=== PATIENT | male | born 1960 | race African-American/Black ===

== ENCOUNTER 2020-12-01 05:03 | Inpatient (IN) | payer MEDICARE, OTHER ==
[~2020-12-01] VITALS: Ht 170.2 cm; Wt 66.7 kg
[2020-12-01] MEDS ORDERED: CRANBERRY300 MG PO (05:10)
[2020-12-01] MEDS ORDERED: FERROUS SULFAT325 MG ORAL (05:10)
[2020-12-01] MEDS ORDERED: DOCUSATE SODIU250 MG ORAL (05:10)
[2020-12-01] MEDS ORDERED: PANTOPRAZOLE SO40 MG ORAL (05:14)
[2020-12-01] MEDS ORDERED: COMBIVENT RESPIM4 GM IH (05:14)
[2020-12-01] MEDS ORDERED: MULTI VITAMIN1 EACH ORAL (05:14)
[2020-12-01] MEDS ORDERED: METOPROLOL TART25 MG ORAL (05:14)
[2020-12-01] MEDS ORDERED: FOLIC ACID1 MG ORAL (05:14)
[2020-12-01] MEDS ORDERED: FLUTICASONE PRO16 G1 NASAL (05:14)
[2020-12-01] MEDS ORDERED: ENEMA133 M1 RC (05:14)
[2020-12-01] MEDS ORDERED: HYDROCODON-ACE1 EA18 PO (05:14)
--- NOTE | 2020-12-01 05:22 | Emergency Room Report ---
History of Present Illness General Chief Complaint: Dyspnea/Respdistress Source: Patient Present Illness HPI This is a 60-year-old male with history of pneumonia and CHF. He presents with chief complaint of shortness of breath. He is coming from a senior living. He was smoking a cigarette and developed shortness of breath. Per political geographer, oxygenation was 88% on room air. Patient complained of shortness of breath. No fever chills but he did not on oxygen at the senior living. He is mostly bedbound because of chronic pain and neuropathy to his lower extremity. He denies any fever chills. No nausea no vomiting. Pain is mostly to his back and lower extremity. He said is from nerve damage. He did not get any breathing treatment. No history of COPD. He recently was transferred to [place] at the beginning of the month after admission through [facility]. 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 COVID-19 Screening: Negative COVID-19 COVID-19 Testing Source: [place] Patient History Past Medical History: see triage record, old chart reviewed, CHF Past Surgical History: other Pertinent Family History: none Social History: Reports: smoking, alcohol use Immunizations: other Reviewed Nursing Documentation: PMH: Agreed; PSxH: Agreed Nursing Documentation-PMH Hx Hypertension: Yes Hx COPD: Yes - PNA Review of Systems Eye: Denies: eye pain, blurred vision ENT: Denies: ear pain, nose congestion, throat swelling Respiratory: Reports: shortness of breath; Denies: cough Cardiovascular: Denies: chest pain, palpitations Gastrointestinal: Denies: abdominal pain, diarrhea, nausea, vomiting Musculoskeletal: Reports: back pain; Denies: joint pain Skin: Denies: rash Neurological: Denies: headache, numbness Endocrine: Denies: increased thirst, increased urine Hematologic/Lymphatic: Denies: easy bruising All Other Systems: negative except mentioned in HPI Physical Exam Vital Signs Date Time Temp Pulse Resp B/P (MAP) Pulse Ox O2 Delivery O2 Flow Rate FiO2 12/01/20 04:58 99.0 91 20 111/74 (86) 100 Nasal Cannula 3.0 Vitals unremarkable Sp02 EP Interpretation: reviewed, normal General Appearance: well appearing, no apparent distress, alert Head: normocephalic, atraumatic Eyes: bilateral eye PERRL, bilateral eye EOMI ENT: hearing grossly normal, normal pharynx Neck: full range of motion, supple, no meningismus Respiratory: chest non-tender, decreased breath sounds Cardiovascular #1: regular rate, rhythm, no murmur Gastrointestinal: normal bowel sounds, non tender, no mass, no organomegaly, no bruit, non-distended Musculoskeletal: back normal, normal range of motion, other - Trace edema Neurologic: alert, oriented x3 Psychiatric: mood/affect normal Medical Decision Making Diagnostic Impression: Primary Impression: Acute respiratory failure with hypoxia Additional Impressions: CHF exacerbation Qualified Codes: I50.9 - Heart failure, unspecified Anemia Qualified Codes: D64.9 - Anemia, unspecified Chronic pain Qualified Codes: G89.4 - Chronic pain syndrome HCAP (healthcare-associated pneumonia) ER Course Patient presents with acute respiratory failure with hypoxia. Oxygenation is on percent on 2 L. I suspect that he has component of CHF. He had negative Covid testing recently. Repeat Covid testing sent. Patient will be admitted to the hospital for further work-up. EKG Diagnostic Results Troponin ordered: Yes Rate: normal Rhythm: NSR ST Segments: no acute changes Rhythm Strip Diag. Results EP Interpretation: yes Rate: 91 Rhythm: NSR, no PVC's, no ectopy Chest X-Ray Diagnostic Results Chest X-Ray Diagnostic Results : Chest X-Ray Ordered: Yes # of Views/Limited/Complete: 1 View Indication: Shortness of Breath EP Interpretation: Yes Interpretation: no effusion, no pneumothorax, other - Cardiomegaly with vascular congestion. Cannot rule out infiltrate Impression: Other - CM with vasc congestion Electronically Signed by: Nicholas Hurd MD Last Vital Signs Date Time Temp Pulse Resp B/P (MAP) Pulse Ox O2 Delivery O2 Flow Rate FiO2 12/01/20 04:58 99.0 91 20 111/74 (86) 100 Nasal Cannula 3.0 Status: improved Disposition: ADMITTED INPATIENT Condition: Serious Nicholas Hurd MD Dec 01, 2020 05:22
[2020-12-01 05:29] LABS: BASOPHILS % (AUTO) 1.5 % (0.0-2.0); EOSINOPHILS % (AUTO) 2.2 % (0.0-3.0); HEMATOCRIT 29.2 % (42.0-52.0); HEMOGLOBIN 8.3 G/DL (14.2-18.0); LYMPHOCYTES % (AUTO) 14.8 % (20.0-45.0); MEAN CORPUSCULAR VOLUME 99 FL (80-99); MONOCYTES % (AUTO) 15.3 % (1.0-10.0); NEUTROPHILS % (AUTO) 66.2 % (45.0-75.0); PLATELET COUNT 252 K/UL (150-450); RED BLOOD COUNT 2.96 M/UL (4.70-6.10); RED CELL DISTRIBUTION WIDTH 21.9 % (11.6-14.8); WHITE BLOOD COUNT 8.7 K/UL (4.8-10.8)
[2020-12-01] MEDS ORDERED: Albuterol ud Inhalation HHN ONE (05:30)
[2020-12-01] MEDS ORDERED: Solu-MEDROL 125mg Inj IVP ONE (05:30)
[2020-12-01] MEDS ORDERED: Ipratropium 0.02% Inh Soln 2.5ml UD HHN ONE (05:30)
[2020-12-01] MEDS ORDERED: Morphine Sulfate 4mg/ml Inj (IV USE ONLY) IVP ONE ×2 (05:30→07:00)
[2020-12-01 05:52] LABS: ALBUMIN 2.6 G/DL (3.4-5.0); ALBUMIN/GLOBULIN RATIO 0.7 (1.0-2.7); ALKALINE PHOSPHATASE 98 U/L (46-116); BILIRUBIN,TOTAL 0.4 MG/DL (0.2-1.0); BLOOD UREA NITROGEN 18 mg/dL (7-18); CALCIUM 8.7 MG/DL (8.5-10.1); CARBON DIOXIDE 27 MMOL/L (21-32); CREATININE 0.6 MG/DL (0.55-1.30)
[2020-12-01 06:00] VITALS: BP 122/66
[2020-12-01 06:02] LABS: ALANINE AMINOTRANSFERASE 12 U/L (12-78); ASPARTATE AMINO TRANSFERASE 11 U/L (15-37); CHLORIDE 108 MMOL/L (98-107); POTASSIUM 4.5 MMOL/L (3.5-5.1); SODIUM 140 MMOL/L (136-145)
--- NOTE | 2020-12-01 07:56 | Diagnostic Imaging Report ---
EXAM: XR Chest, 1 View CLINICAL HISTORY: SOB TECHNIQUE: Frontal view of the chest. COMPARISON: No relevant prior studies available. FINDINGS: Lungs: There are moderate bilateral perihilar and lower lobe mixed interstitial and alveolar infiltrates most likely representing pulmonary edema. Pneumonitis not completely excluded.. Pleural space: Unremarkable. No pneumothorax. Heart: The heart size is mildly enlarged. Mediastinum: Unremarkable. Bones/joints: Unremarkable. IMPRESSION: There are moderate bilateral perihilar and lower lobe mixed interstitial and alveolar infiltrates most likely representing pulmonary edema. Pneumonitis not completely excluded.
[2020-12-01 08:00] VITALS: BP 132/82
[2020-12-01 09:22] LABS: FERRITIN 27 NG/ML (8-388)
[2020-12-01 09:36] LABS: % IRON SATURATION 8 % (15-50); IRON 18 ug/dL (50-175); TOTAL IRON BINDING CAPACITY 234 ug/dL (250-450)
[2020-12-01 10:06] LABS: APPEARANCE,URINE CLEAR; BILIRUBIN, URINE NEGATIVE (NEGATIVE); COLOR,URINE PALE YELLOW; GLUCOSE, URINE (UA) NEGATIVE (NEGATIVE); KETONES,URINE NEGATIVE (NEGATIVE); LEUKOCYTE ESTERASE ,URINE NEGATIVE (NEGATIVE); NITRITE,URINE NEGATIVE (NEGATIVE); PH,URINE 5 (4.5-8.0); PROTEIN,URINE NEGATIVE (NEGATIVE); UROBILINOGEN,URINE NORMAL MG/DL (0.0-1.0)
--- NOTE | 2020-12-01 10:49 | Consultation ---
Consult Note Consult Note DATE OF CONSULTATION: 12/01/2020 CONSULTING PHYSICIAN: Rehan Carlton MD. ATTENDING PHYSICIAN: Dr. Pal REASON FOR CONSULTATION: Hypoxemic respiratory distress HISTORY OF PRESENT ILLNESS: Mr. Bishop is a 60-year-old male with past medical history of hypertension, pneumonia and CHF, who was sent to ED from [facility] for evaluation of shortness of breath. Apparently patient was reported to be smoking a cigarette when he developed shortness of breath. Patient was hypoxic in the 80s on room air and was placed on supplemental oxygen. He denies fever, chills, diarrhea, or sick contact. Patient denies being on oxygen at the care home. Patient is mostly bedbound due to chronic pain and neuropathy to his lower extremities. Patient denies history of COPD. Patient tested negative for COVID-19 on 11/26/2020 at his facility. A new COVID- 19 swab has been sent and is pending result. EKG showed normal sinus rhythm without acute changes. Chest x-ray was notable for cardiomegaly with vascular congestion. Patient was given breathing treatment, steroid, Lasix, and pain medication and was admitted to the hospital for further management. PAST MEDICAL HISTORY: Hypertension, CHF MEDICATIONS: Docusate, ferrous sulfate, fluticasone, folic acid, hydrocodone, ipratropium/albuterol, metoprolol, multivitamin, pantoprazole ALLERGIES: Codeine FAMILY HISTORY: Unknown PERSONAL/SOCIAL HISTORY: Resident of [facility] REVIEW OF SYSTEMS: Unreliable PHYSICAL EXAMINATION: VITAL SIGNS: Blood pressure 122/66, heart rate 93, respiratory rate 20, weight 73 kg, height 172 cm. General: Patient sitting at the edge of bed, NAD, normal work of breathing on room air HEENT: Head exam reveals that the head is normocephalic, atraumatic without deformity or unusual swelling. Pupils are PERRLA. CHEST AND LUNGS: Decreased breath sounds, chest nontender CARDIOVASCULAR: Reveals normal S1, S2 without murmurs, rubs, or clicks. ABDOMEN: Soft with no tenderness or organomegaly. RECTAL: Deferred. MUSCULOSKELETAL: Trace edema in lower extremities NEUROLOGICAL: Alert and oriented x3 , nonfocal LABORATORY DATA: Laboratory testing shows hemoglobin 8.3, hematocrit 29.2. Chemistries show chloride 108, iron 18, BNP 6986, CRP 5.1 Urinalysis normal Toxicology negative Assessment/Plan 1. Anemia -Per primary MD 2. Elevated inflammatory markers -We will add Lovenox for DVT prophylaxis -We will also order duplex ultrasound of legs 3. CHF - Elevated BNP - Cardio following -2D echo -We will add Lasix 4. Pulmonary congestion, likely 2/2 to CHF -Provide supplemental oxygen as needed 5. COVID-19 PUI -COVID-19 swab has been sent -isolation precaution until COVID-19 results is available 6. Hypoxic respiratory distress - Provide supplemental oxygen as needed -We will continue DuoNeb -We will add Solu-Medrol 7. Smoker - Smoking cessation education 8. Infiltrates - Dw ID - We will start him on Rocephin The care for this patient was discussed with my supervising physician. Time spent for this case was approximately 31 minutes. Luis Torres Dec 01, 2020 10:49
[2020-12-01 12:00] VITALS: BP 102/65
--- NOTE | 2020-12-01 12:14 | Consultation ---
DATE OF CONSULTATION: 12/01/2020 INFECTIOUS DISEASES CONSULTATION CONSULTING PHYSICIAN: Marques Davidson MD. REFERRING PHYSICIAN: La Pal MD. This consultation has been done on behalf of Dr. Lucian Espinoza. HISTORY OF PRESENTING ILLNESS: This is a 60-year-old gentleman with history of pneumonia, congestive heart failure, who comes in with shortness of breath. There was a concern for pneumonia and an Infectious Diseases consultation has been obtained for antibiotics. He was tested COVID-19 negative. PAST MEDICAL HISTORY: 1. History of pneumonia. 2. History of congestive heart failure. 3. History of COPD. 4. History of hypertension. SOCIAL HISTORY: He is a smoker. He drinks alcohol. No history of drug use. FAMILY HISTORY: Unknown. REVIEW OF SYSTEMS: RESPIRATORY: No fever or chills. No cough. He has shortness of breath. No chest pain. CARDIAC: No chest pain. No palpitation. No dizziness. No syncope. GASTROINTESTINAL: No nausea. No vomiting. No abdominal pain or diarrhea. MEDICATIONS: As an inpatient, he is on Solu-Medrol, morphine, Atrovent, albuterol. ALLERGIES: To codeine noted. PHYSICAL EXAMINATION: VITAL SIGNS: Temperature of 98.4, T-max of 99, pulse of 93, respiratory rate 20, blood pressure 122/66, O2 saturation of 100% on 2 liters of oxygen. HEENT: Pupils equally reactive to light and accommodation. Mouth appears clean without thrush. NECK: Supple. No adenopathy. No JVD. CARDIOVASCULAR: Regular rate and rhythm. No murmurs. LUNGS: Clear to auscultation bilaterally. No crackles. No wheezes. ABDOMEN: Soft, nontender. No organomegaly. EXTREMITIES: No cyanosis, no clubbing, no edema. LABORATORY DATA: White count of 8.7, hemoglobin 8.3, hematocrit 29.2, MCV 99, platelet count of 252, with neutrophils of 66%. Sodium 140, potassium 4.5, chloride 108, bicarb 27, BUN 18, creatinine 0.6, glucose 91, calcium 8.7. Total bilirubin 0.4. AST 11, ALT 12, alkaline phosphatase 98. Troponin 0.008. C-reactive protein 5.1. Total protein 6.3, albumin 2.6. UA is showing 0 white cells. Chest x-ray is showing moderate bilateral perihilar and lower lobe mixed interstitial and alveolar infiltrates, most likely representing pulmonary edema, may not excluded. ASSESSMENT: This is a 60-year-old gentleman with history of pneumonia, congestive heart failure, hypertension, COPD, who comes in with shortness of breath and was found to have. 1. Pneumonia. His COVID-19 test was negative on 11/26/2020. 2. Congestive heart failure. 3. Hypertension. 4. COPD. PLAN: 1. We will start the patient on ceftriaxone. 2. We will order sputum for Gram stain and culture. 3. We will follow up cultures and adjust antibiotics accordingly. I would like to thank, Dr. Pal for this consultation. Marques Davidson M.D. DR: NAHEED JOB#: [id number] CC: [place] MD.; Fax#: [phone]
[2020-12-01] MEDS ORDERED: Albuterol/Ipratropium 3ml neb HHN SCH (13:00)
[2020-12-01] MEDS ORDERED: Ipratropium 0.02% Inh Soln 2.5ml UD HHN SCH (13:00)
--- NOTE | 2020-12-01 13:04 | Consultation ---
Consult Note Consult Note I am asked to evaluate the patient at the request of Dr. Martell for fluid and electrolyte management This is a 60-year-old male with history of pneumonia and CHF. He presents with chief complaint of shortness of breath. He is coming from a care home. He was smoking a cigarette and developed shortness of breath. Per automation operator, oxygenation was 88% on room air. Patient complained of shortness of breath. No fever chills but he did not on oxygen at the care home. He is mostly bedbound because of chronic pain and neuropathy to his lower extremity. He denies any fever chills. No nausea no vomiting. Pain is mostly to his back and lower extremity. He said is from nerve damage. He did not get any breathing treatment. No history of COPD. He recently was transferred to [place] at the beginning of the month after admission through [facility]. 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 HEENT: Pupils equally reactive to light and accommodation. Mouth appears clean without thrush. NECK: Supple. No adenopathy. No JVD. CARDIOVASCULAR: Regular rate and rhythm. No murmurs. LUNGS: Clear to auscultation bilaterally. No crackles. No wheezes. ABDOMEN: Soft, nontender. No organomegaly. EXTREMITIES: No cyanosis, no clubbing, no edema. LABORATORY DATA: White count of 8.7, hemoglobin 8.3, hematocrit 29.2, MCV 99, platelet count of 252, with neutrophils of 66%. Sodium 140, potassium 4.5, chloride 108, bicarb 27, BUN 18, creatinine 0.6, glucose 91, calcium 8.7. Total bilirubin 0.4. AST 11, ALT 12, alkaline phosphatase 98. Troponin 0.008. C-reactive protein 5.1. Total protein 6.3, albumin 2.6. UA is showing 0 white cells. Chest x-ray is showing moderate bilateral perihilar and lower lobe mixed interstitial and alveolar infiltrates, most likely representing pulmonary edema, may not excluded. Chest x-ray IMPRESSION: There are moderate bilateral perihilar and lower lobe mixed interstitial and alveolar infiltrates most likely representing pulmonary edema. Pneumonitis not completely excluded. . Assessment/Plan Imp: Iron deficiency anemia Respiratory failure Exacerbation of CHF Chronic pain Hypoalbuminemia Plan: IV iron Stool OB Demise cardiac and pulmonary status Per orders Hong Wall MD Dec 01, 2020 13:04
[2020-12-01] MEDS: Solu-MEDROL 40mg Inj IVP SCH ×2 (13:44→17:41)
[2020-12-01] MEDS: cefTRIAXone 1 GM in D5W 55 ML IVPB SCH (13:44)
--- NOTE | 2020-12-01 14:33 | Cardiac Electrophysiology PN ---
Subjective Subjective [id number] Objective Last 24 Hour Vital Signs Date Time Temp Pulse Resp B/P (MAP) Pulse Ox O2 Delivery O2 Flow Rate FiO2 12/01/20 12:00 94 12/01/20 07:57 Nasal Cannula 2.0 12/01/20 07:41 98.4 93 20 122/66 100 Room Air 2.0 28 12/01/20 06:11 98.4 12/01/20 06:11 98.4 12/01/20 06:00 98.4 93 20 122/66 100 Room Air 12/01/20 05:26 88 20 100 Nasal Cannula 2.0 28 86 18 98 12/01/20 05:15 91 20 Nasal Cannula 3.0 12/01/20 04:58 99.0 91 20 111/74 (86) 100 Nasal Cannula 3.0 Laboratory Tests Test 12/01/20 05:14 12/01/20 05:15 12/01/20 09:58 Iron Level 18 ug/dL (50-175) L Total Iron Binding Capacity 234 ug/dL (250-450) L Percent Iron Saturation 8 % (15-50) L Unsaturated Iron Binding 216 ug/dL (112-346) Ferritin 27 NG/ML (8-388) Vitamin B12 Level 402 PG/ML (193-986) Folate 16.9 NG/ML (8.6-58.9) White Blood Count 8.7 K/UL (4.8-10.8) Red Blood Count 2.96 M/UL (4.70-6.10) L Hemoglobin 8.3 G/DL (14.2-18.0) L Hematocrit 29.2 % (42.0-52.0) L Mean Corpuscular Volume 99 FL (80-99) Mean Corpuscular Hemoglobin 27.9 PG (27.0-31.0) Mean Corpuscular Hemoglobin Concent 28.3 G/DL (32.0-36.0) L Red Cell Distribution Width 21.9 % (11.6-14.8) H Platelet Count 252 K/UL (150-450) Mean Platelet Volume 5.7 FL (6.5-10.1) L Neutrophils (%) (Auto) 66.2 % (45.0-75.0) Lymphocytes (%) (Auto) 14.8 % (20.0-45.0) L Monocytes (%) (Auto) 15.3 % (1.0-10.0) H Eosinophils (%) (Auto) 2.2 % (0.0-3.0) Basophils (%) (Auto) 1.5 % (0.0-2.0) D-Dimer 1.12 mg/L FEU (0.00-0.49) H Sodium Level 140 MMOL/L (136-145) Potassium Level 4.5 MMOL/L (3.5-5.1) Chloride Level 108 MMOL/L (98-107) H Carbon Dioxide Level 27 MMOL/L (21-32) Blood Urea Nitrogen 18 mg/dL (7-18) Creatinine 0.6 MG/DL (0.55-1.30) Estimat Glomerular Filtration Rate > 60 mL/min (>60) Glucose Level 91 MG/DL (74-106) Lactic Acid Level 0.50 mmol/L (0.4-2.0) Calcium Level 8.7 MG/DL (8.5-10.1) Total Bilirubin 0.4 MG/DL (0.2-1.0) Aspartate Amino Transf (AST/SGOT) 11 U/L (15-37) L Alanine Aminotransferase (ALT/SGPT) 12 U/L (12-78) Alkaline Phosphatase 98 U/L (46-116) Troponin I 0.008 ng/mL (0.000-0.056) C-Reactive Protein, Quantitative 5.1 mg/dL (0.00-0.90) H Pro-B-Type Natriuretic Peptide 6986 pg/mL (0-125) H Total Protein 6.3 G/DL (6.4-8.2) L Albumin 2.6 G/DL (3.4-5.0) L Globulin 3.7 g/dL Albumin/Globulin Ratio 0.7 (1.0-2.7) L Urine Color Pale yellow Urine Appearance Clear Urine pH 5 (4.5-8.0) Urine Specific [place] 1.010 (1.005-1.035) Urine Protein Negative (NEGATIVE) Urine Glucose (UA) Negative (NEGATIVE) Urine Ketones Negative (NEGATIVE) Urine Blood Negative (NEGATIVE) Urine Nitrite Negative (NEGATIVE) Urine Bilirubin Negative (NEGATIVE) Urine Urobilinogen Normal MG/DL (0.0-1.0) Urine Leukocyte Esterase Negative (NEGATIVE) Urine RBC 0 /HPF (0 - 0) Urine WBC 0 /HPF (0 - 0) Urine Squamous Epithelial Cells Occasional /LPF Urine Bacteria Occasional /HPF (NONE) Urine Opiates Screen Negative (NEGATIVE) Urine Barbiturates Screen Negative (NEGATIVE) Phencyclidine (PCP) Screen Negative (NEGATIVE) Urine Amphetamines Screen Negative (NEGATIVE) Urine Benzodiazepines Screen Negative (NEGATIVE) Urine Cocaine Screen Negative (NEGATIVE) Urine Marijuana (THC) Screen Negative (NEGATIVE) Christian Mendoza MD Dec 01, 2020 14:33
[2020-12-01] MEDS ORDERED: Iron Sucrose 200 MG in NS 110 ML IVPB ONE (15:00)
--- NOTE | 2020-12-01 15:14 | Consultation ---
DATE OF CONSULTATION: 12/01/2020 CARDIOLOGY CONSULTATION REFERRING PHYSICIAN: La Pal M.D. REASON FOR THE CONSULTATION: Congestive heart failure and hypertension. HISTORY OF PRESENT ILLNESS: The patient is a 60-year-old gentleman with history of hypertension, congestive heart failure, pneumonia, who was sent to the emergency room from a assisted facility for increasing shortness of breath. The patient reportedly was smoking cigarette and suddenly developed shortness of breath and was hypoxic at 80% on room air. supplemental oxygen. The patient is mostly bed-bound due to chronic pain as well as lower extremity neuropathy. He tested negative for COVID-19 on November 26, 2020 at his facility and a new COVID swab was sent. His EKG shows sinus rhythm, no acute ST-T wave abnormality. The chest x-ray showed cardiomegaly with vascular congestion. His BNP was almost 7000. Preliminary echocardiogram showed ejection fraction of 65% with severe pulmonary hypertension. REVIEW OF SYSTEMS: Negative other than what was mentioned in history of present illness. PAST MEDICAL HISTORY: As mentioned above. FAMILY HISTORY: Noncontributory. MEDICATION: Per reconciliation. ALLERGIES: Codeine. SOCIAL HISTORY: Resident of a assisted facility and continues to smoke. PHYSICAL EXAMINATION: VITAL SIGNS: Blood pressure of 122/66, pulse is 94, respirations are 18, and temperature 98.4. HEAD AND NECK: No JVD. LUNGS: Clear. CARDIOVASCULAR: Regular S1 and S2 with no gallop or murmur. ABDOMEN: Soft. EXTREMITIES: No pitting edema. LABORATORY DATA: Labs show sodium of 140, potassium 4.5, BUN of 18, creatinine 0.6, and glucose of 91. Troponin is negative. BNP is 6986. His urine toxicology is negative. White count is 8.7, hemoglobin 9.7, hematocrit 29.2, platelet count 252. ASSESSMENT AND PLAN: 1. congestive heart failure. BNP of 7000 in this patient with ejection fraction of 65% by echocardiogram, likely due to diastolic dysfunction as well as pulmonary hypertension. Start the patient on Lasix 40 mg IV b.i.d. 2. COPD and respiratory failure, on Solu-Medrol as well as ceftriaxone. 3. Anemia, etiology is not clear at this time, but could be anemia of chronic disease. 4. Hypertension. Blood pressure currently stable. I will keep the patient only on Lasix at this time. Thank you very much for allowing me to participate in the care of this patient. Please do not hesitate to contact me for any questions regarding my evaluation. Christian Mendoza M.D. DR: MOHAN JOB#: [id number] CC:
[2020-12-01 16:00] VITALS: BP 133/87
--- NOTE | 2020-12-01 19:25 | Cardiology Report ---
APPROVED REPORT EXAM: Two-dimensional and M-mode echocardiogram with Doppler and color Doppler. INDICATION Congestive Heart Failure M-Mode DIMENSIONS IVSd1.1 (0.7-1.1cm)Left Atrium (MM)5.1 (1.6-4.0cm) LVDd5.2 (3.5-5.6cm)Aortic Root3.6 (2.0-3.7cm) PWd1.3 (0.7-1.1cm)Aortic Cusp Exc.1.8 (1.5-2.0cm) IVSs1.5 cmEPSS0.3 (>1.0cm) LVDs3.4 (2.5-4.0cm) PWs2.6 cm <Conclusion> Normal left ventricular chamber size, systolic function and wall motion. Left ventricular ejection fraction estimated to be 65 %. Borderline left ventricular hypertrophy by 2-D. Anterior Echo-free space, may be due to pericardial fat or effusion. Mild bi-atrial enlargement. Right ventricular chamber size is within normal limits. Focal aortic valve sclerosis with adequate cusp excursion. Moderate thickened mitral valve leaflets with normal excursion. Mitral annulus and aortic root calcification. Normal pulmonic valve structure. Normal tricuspid valve structure. IVC dilated at 2.2 cm with slight physiologic collapse suggestive of increased RA pressure. A color flow and spectral Doppler study was performed and revealed: Trace aortic regurgitation. Mild mitral regurgitation. Mitral diastolic velocities suggest reduced left ventricular relaxation c/w mild LV diastolic dysfunction (Grade I ). Moderate tricuspid regurgitation. Tricuspid systolic velocities suggests peak right ventricular systolic pressure of 65 mmHg, consistent with severe pulmonary hypertension. Possible trace pulmonic regurgitation present.
[2020-12-01 20:00] VITALS: BP 131/79
--- NOTE | 2020-12-01 21:29 | History and Physical Report ---
DATE OF ADMISSION: 12/01/2020 HISTORY OF PRESENT ILLNESS: The patient is here from a detention and is admitted for shortness of breath, rule out CHF exacerbation, hypoxia. Chest x-ray showed vascular congestion. The patient is a poor historian. The patient got steroids and advised on antibiotics in the emergency room. He is admitted for CHF exacerbation, hypoxia, rule out pneumonia. Again, he is a poor historian, cannot get a reliable history from the patient. PAST MEDICAL HISTORY: Constipation, iron-deficiency anemia, hypertension, GERD, CHF. ALLERGIES: Codeine. PAST HISTORY: Iron-deficiency anemia. Also has a history of COPD and hypertension. MEDICATIONS: Docusate, , ferrous sulfate, metoprolol, multivitamin, and Protonix. FAMILY HISTORY: Noncontributory. SOCIAL HISTORY: Has history of smoking. Denies history of drug abuse. Denies history of alcohol abuse. Patient does have history of alcohol abuse. Denies history of drug abuse. REVIEW OF SYSTEMS: HEENT: Denies headaches. RESPIRATORY: Reports shortness of breath. Denies cough. CARDIOVASCULAR: Denies chest pain. GASTROINTESTINAL: Denies nausea, vomiting, or diarrhea. Denies heartburn. EXTREMITIES: Denies pain. Has leg edema. CENTRAL NERVOUS SYSTEM: Denies change in speech pattern. PHYSICAL EXAMINATION: VITAL SIGNS: Temperature 97.1, pulse 93, blood pressure 132/82. HEENT: PERRLA. CHEST: Bibasilar rhonchi CARDIOVASCULAR: Regular rate and rhythm. No murmurs or extra sounds. GASTROINTESTINAL: Soft, nontender, nondistended. No organomegaly. Positive bowel sounds. EXTREMITIES: 1+ edema. Reflexes on both sides. Generalized weakness. NEUROLOGIC: Oriented x1. LABORATORY DATA: WBC of 8.7, hemoglobin of 8.3, platelets of 252. Sodium 140, potassium 4.5, BUN of 18, creatinine of 0.6, glucose of 62. Chest x-ray showed vascular congestion. ASSESSMENT AND PLAN: Shortness of breath, CHF, hypoxia, history of COPD, history of smoking. I have asked Dr. Camacho, Dr. Wall, Dr. Rehan Carlton, Dr. Lucian Espinoza, and Dr. Mendoza to see the patient for the management COPD of exacerbation as well as CHF exacerbation and to rule out pneumonia. Also, the patient had complained of generalized pain and Dr. Camacho has been consulted for pain control management. La Pal M.D. DR: DAVINA JOB#: [id number] CC:
[2020-12-02] VITALS: BP 135/79
[2020-12-02] MEDS: Solu-MEDROL 40mg Inj IVP SCH ×4 (00:56→17:47)
[2020-12-02 04:00] VITALS: BP 125/81
[2020-12-02 07:15] LABS: HEMATOCRIT 27.8 % (42.0-52.0); HEMOGLOBIN 7.9 G/DL (14.2-18.0); MEAN CORPUSCULAR VOLUME 99 FL (80-99); PLATELET COUNT 249 K/UL (150-450); RED CELL DISTRIBUTION WIDTH 21.7 % (11.6-14.8); WHITE BLOOD COUNT 5.4 K/UL (4.8-10.8)
[2020-12-02 07:38] LABS: AMMONIA 25 umol/L (11-32)
[2020-12-02 08:00] VITALS: BP 106/61
[2020-12-02 08:00] LABS: ALANINE AMINOTRANSFERASE 10 U/L (12-78); ALBUMIN 2.7 G/DL (3.4-5.0); ALBUMIN/GLOBULIN RATIO 0.7 (1.0-2.7); ALKALINE PHOSPHATASE 80 U/L (46-116); ANION GAP 6 mmol/L (5-15); ASPARTATE AMINO TRANSFERASE 10 U/L (15-37); BILIRUBIN,TOTAL 0.3 MG/DL (0.2-1.0); BLOOD UREA NITROGEN 21 mg/dL (7-18); CALCIUM 8.6 MG/DL (8.5-10.1); CARBON DIOXIDE 29 MMOL/L (21-32); CHLORIDE 107 MMOL/L (98-107); CHOLESTEROL 98 MG/DL (< 200); CREATININE 0.7 MG/DL (0.55-1.30); GAMMA GLUTAMYL TRANSPEPTIDASE 35 U/L (5-85); HDL CHOLESTEROL 28 MG/DL (40-60); PHOSPHORUS 4.6 MG/DL (2.5-4.9); POTASSIUM 4.5 MMOL/L (3.5-5.1); SODIUM 142 MMOL/L (136-145); TRIGLYCERIDES 98 MG/DL (30-150)
--- NOTE | 2020-12-02 08:26 | Consultation ---
History of Present Illness General Date patient seen: Dec 02, 2020 Present Illness Allergies: Coded Allergies: CODEINE (Verified Allergy, Unknown, 12/01/20) Medication History Scheduled Docusate Sodium* (Docusate Sodium*), 250 MG ORAL TWICE A DAY, (Reported) Ferrous Sulfate* (Ferrous Sulfate*), 325 MG ORAL DAILY, (Reported) Fluticasone Propionate* (Fluticasone Propionate*), 1 SPRAY NASAL DAILY, (Reported) Folic Acid* (Folic Acid*), 1 MG ORAL DAILY, (Reported) Metoprolol Tartrate* (Metoprolol Tartrate*), 25 MG ORAL EVERY 12 HOURS, (Reported) Multivitamin (Multi Vitamin Daily), 1 TAB ORAL DAILY, (Reported) Pantoprazole* (Pantoprazole*), 40 MG ORAL DAILY, (Reported) Miscellaneous Medications Cranberry Extract (Cranberry), 300 MG PO, (Reported) Hydrocodone Bit/Acetaminophen (Hydrocodon-Acetaminophen 5-300), 1 EACH PO, (Reported) Ipratropium/Albuterol Sulfate (Combivent Respimat Inhal [place]), 4 GM IH, (Reported) Na Phos,M-B/Na Phos,Di-Ba (Enema), 133 ML RC, (Reported) Patient History Healthcare decision maker Resuscitation status Advanced Directive on File Physical Exam Last 24 Hour Vital Signs Date Time Temp Pulse Resp B/P (MAP) Pulse Ox O2 Delivery O2 Flow Rate FiO2 12/02/20 04:00 106 12/02/20 04:00 98.6 101 20 125/81 (96) 94 12/02/20 00:00 100 12/02/20 00:00 99.0 96 18 135/79 (97) 93 12/01/20 21:00 Nasal Cannula 2.0 12/01/20 20:00 101 12/01/20 20:00 99.3 96 19 131/79 (96) 92 12/01/20 16:00 96 12/01/20 16:00 98.2 92 18 133/87 (102) 90 12/01/20 12:00 98.0 98 17 102/65 (77) 97 12/01/20 12:00 94 12/01/20 09:00 Nasal Cannula 2.0 Intake and Output 12/01/20 12/02/20 19:00 07:00 Output Total 1000 ml Balance -1000 ml Output Urine Total 1000 ml # Voids 9 4 # Bowel Movements 2 2 Laboratory Tests Test 12/01/20 09:58 12/02/20 05:00 12/02/20 06:02 Urine Color Pale yellow Urine Appearance Clear Urine pH 5 (4.5-8.0) Urine Specific [place] 1.010 (1.005-1.035) Urine Protein Negative (NEGATIVE) Urine Glucose (UA) Negative (NEGATIVE) Urine Ketones Negative (NEGATIVE) Urine Blood Negative (NEGATIVE) Urine Nitrite Negative (NEGATIVE) Urine Bilirubin Negative (NEGATIVE) Urine Urobilinogen Normal MG/DL (0.0-1.0) Urine Leukocyte Esterase Negative (NEGATIVE) Urine RBC 0 /HPF (0 - 0) Urine WBC 0 /HPF (0 - 0) Urine Squamous Epithelial Cells Occasional /LPF Urine Bacteria Occasional /HPF (NONE) Urine Opiates Screen Negative (NEGATIVE) Urine Barbiturates Screen Negative (NEGATIVE) Phencyclidine (PCP) Screen Negative (NEGATIVE) Urine Amphetamines Screen Negative (NEGATIVE) Urine Benzodiazepines Screen Negative (NEGATIVE) Urine Cocaine Screen Negative (NEGATIVE) Urine Marijuana (THC) Screen Negative (NEGATIVE) Arterial Blood pH 7.451 (7.350-7.450) Arterial Blood Partial Pressure CO2 37.1 mmHg (35.0-45.0) Arterial Blood Partial Pressure O2 51.3 mmHg (75.0-100.0) L Arterial Blood HCO3 25.3 mmol/L (22.0-26.0) Arterial Blood Oxygen Saturation 83.6 % (95-100) *L Arterial Blood Base Excess 1.3 (-2-2) Amrik Test Positive White Blood Count 5.4 K/UL (4.8-10.8) Red Blood Count 2.80 M/UL (4.70-6.10) L Hemoglobin 7.9 G/DL (14.2-18.0) L Hematocrit 27.8 % (42.0-52.0) L Mean Corpuscular Volume 99 FL (80-99) Mean Corpuscular Hemoglobin 28.1 PG (27.0-31.0) Mean Corpuscular Hemoglobin Concent 28.4 G/DL (32.0-36.0) L Red Cell Distribution Width 21.7 % (11.6-14.8) H Platelet Count 249 K/UL (150-450) Mean Platelet Volume 5.6 FL (6.5-10.1) L Neutrophils (%) (Auto) % (45.0-75.0) Lymphocytes (%) (Auto) % (20.0-45.0) Monocytes (%) (Auto) % (1.0-10.0) Eosinophils (%) (Auto) % (0.0-3.0) Basophils (%) (Auto) % (0.0-2.0) Neutrophils % (Manual) Pending Lymphocytes % (Manual) Pending Platelet Estimate Pending Platelet Morphology Pending Sodium Level 142 MMOL/L (136-145) Potassium Level 4.5 MMOL/L (3.5-5.1) Chloride Level 107 MMOL/L (98-107) Carbon Dioxide Level 29 MMOL/L (21-32) Anion Gap 6 mmol/L (5-15) Blood Urea Nitrogen 21 mg/dL (7-18) H Creatinine 0.7 MG/DL (0.55-1.30) Estimat Glomerular Filtration Rate > 60 mL/min (>60) Glucose Level 134 MG/DL (74-106) H Hemoglobin A1c 4.6 % (4.3-6.0) Uric Acid 6.6 MG/DL (2.6-7.2) Calcium Level 8.6 MG/DL (8.5-10.1) Phosphorus Level 4.6 MG/DL (2.5-4.9) Magnesium Level 2.1 MG/DL (1.8-2.4) Total Bilirubin 0.3 MG/DL (0.2-1.0) Gamma Glutamyl Transpeptidase 35 U/L (5-85) Aspartate Amino Transf (AST/SGOT) 10 U/L (15-37) L Alanine Aminotransferase (ALT/SGPT) 10 U/L (12-78) L Alkaline Phosphatase 80 U/L (46-116) Ammonia 25 umol/L (11-32) Troponin I 0.003 ng/mL (0.000-0.056) C-Reactive Protein, Quantitative 3.3 mg/dL (0.00-0.90) H Pro-B-Type Natriuretic Peptide 7745 pg/mL (0-125) H Total Protein 6.6 G/DL (6.4-8.2) Albumin 2.7 G/DL (3.4-5.0) L Globulin 3.9 g/dL Albumin/Globulin Ratio 0.7 (1.0-2.7) L Triglycerides Level 98 MG/DL (30-150) Cholesterol Level 98 MG/DL (< 200) LDL Cholesterol 59 mg/dL (<100) HDL Cholesterol 28 MG/DL (40-60) L Cholesterol/HDL Ratio 3.5 (3.3-4.4) Vitamin D 25-Hydroxy Pending 25-Hydroxy Vitamin D2 Pending 25-Hydroxy Vitamin D3 Pending Thyroid Stimulating Hormone (TSH) 0.191 uiU/mL (0.358-3.740) Free Thyroxine 1.02 NG/DL (0.76-1.46) Height (Feet): 5 Height (Inches): 7.00 Weight (Pounds): 147 Medications Current Medications Medications (Trade) Dose Ordered Sig/Sha Route PRN Reason Start Time Stop Time Status Last Admin Dose Admin Albuterol/ Ipratropium (Combivent Respimat) 1 puff Q6HRT INH 12/01/20 19:00 12/31/20 18:59 12/02/20 07:10 Ceftriaxone Sodium 1 gm/ Dextrose 55 ml @ 110 mls/hr Q24H IVPB 12/01/20 12:00 12/08/20 11:59 12/01/20 13:44 Enoxaparin Sodium (Lovenox) 40 mg DAILY SUBQ 12/02/20 09:00 03/02/21 08:59 Furosemide (Lasix) 40 mg EVERY 12 HOURS IV 12/01/20 12:00 12/31/20 11:59 12/01/20 21:19 Iron Sucrose 100 mg/Sodium Chloride 60 ml @ 240 mls/hr BEDTIME IVPB 12/02/20 21:00 12/06/20 21:14 Methylprednisolone Sodium Succinate (Solu-MEDROL) 40 mg EVERY 6 HOURS IVP 12/01/20 12:00 03/01/21 11:59 12/02/20 05:56 Assessment/Plan Assessment/Plan: (1) Degenerative joint disease (2) Multiple joint pain seen dictated Scott Yates Dec 02, 2020 08:26
[2020-12-02] MEDS ORDERED: Acetaminophen 500mg (ES) tab ORAL PRN ×2 (08:45)
--- NOTE | 2020-12-02 09:14 | Consultation ---
DATE OF CONSULTATION: 12/02/2020 PAIN MANAGEMENT CONSULTATION CONSULTING PHYSICIAN: Brenda Camacho MD. REFERRING PHYSICIAN: La Pal MD. PHYSICIAN EMPLOYMENT AGENCY MANAGER: SHANTELLE Lea. CHIEF COMPLAINT: Generalized body pain. HISTORY OF PRESENT ILLNESS: The patient is a 60-year-old male who is being seen on the telemetry floor of [facility] for initial pain management consultation. The patient was admitted under the care of Dr. Pal due to CHF, pneumonia, hypoxia, and respiratory distress and is being seen by software testing specialist, Infectious Diseases doctor, obstetrical tech, as well as a car trimmer. At this time, complains of generalized body pain and reports that his pain is at a moderate level, is comfortable, and does have some chest pain and with shortness of breath. We were consulted so the patient would have adequate pain control while here in the hospital. PAST MEDICAL HISTORY: CHF, hypertension, GERD, iron-deficiency anemia, COPD. PAST SURGICAL HISTORY: unknown. SOCIAL HISTORY: History of smoking. History of alcohol. Denies IV drug abuse. ALLERGIES: Codeine. MEDICATIONS: Docusate, ferrous sulfate, folic acid, metoprolol, pantoprazole, [place], Combivent, enemas. REVIEW OF SYSTEMS: Denies rash, fever, chills, sweating, dizziness, drowsiness, blurred vision, sore throat, or change in hearing or weight. No nausea, vomiting, diarrhea, or blood in the stool or urine. No dysuria. Complaining of generalized body pain with shortness of breath and chest pain. PHYSICAL EXAMINATION: GENERAL: Alert, awake, and oriented. VITAL SIGNS: Blood pressure 124/81, heart rate 101, oxygen saturation 94%, respiratory rate 20, and temperature 98.2 degrees Fahrenheit. HEENT: PERRLA. NECK: Range of motion is decreased due to the patient's condition. LUNGS: Decreased breath sounds bilaterally. HEART: S1 and S2 regular. ABDOMEN: Soft and nontender. BACK: Range of motion is decreased in flexion and extension. EXTREMITIES: Upper and lower extremity range of motion is decreased due to the patient's condition. No cyanosis. No clubbing. Sensory is reduced. Reflexes are not obtainable. No adenopathy. ASSESSMENT AND PLAN: This is a 60-year-old male with degenerative joint disease and multiple joint pain. The patient will be started on Tylenol 500 mg tablet every 4 hours as needed for pain, Neurontin 100mg three times a day. The patient was discussed with Dr. Camacho and Dr. Camacho concurred. We will follow up with the patient. Thank you very much for the courtesy of this consultation. Brenda Camacho M.D. SHANTELLE Lea DR: Anthony JOB#: [id number] CC: TAYLOR
--- NOTE | 2020-12-02 09:27 | Pulmonology Progress Note ---
Subjective ROS Limited/Unobtainable: No Constitutional: Reports: no symptoms HEENT: Repors: no symptoms Respiratory: Reports: no symptoms Cardiovascular: Reports: no symptoms Gastrointestinal/Abdominal: Reports: no symptoms Allergies: Coded Allergies: CODEINE (Verified Allergy, Unknown, 12/01/20) Objective Last 24 Hour Vital Signs Date Time Temp Pulse Resp B/P (MAP) Pulse Ox O2 Delivery O2 Flow Rate FiO2 12/02/20 08:00 99 12/02/20 08:00 98.7 100 20 106/61 (76) 94 12/02/20 04:00 106 12/02/20 04:00 98.6 101 20 125/81 (96) 94 12/02/20 00:00 100 12/02/20 00:00 99.0 96 18 135/79 (97) 93 12/01/20 21:00 Nasal Cannula 2.0 12/01/20 20:00 101 12/01/20 20:00 99.3 96 19 131/79 (96) 92 12/01/20 16:00 96 12/01/20 16:00 98.2 92 18 133/87 (102) 90 12/01/20 12:00 98.0 98 17 102/65 (77) 97 12/01/20 12:00 94 Intake and Output 12/01/20 12/02/20 19:00 07:00 Output Total 1000 ml Balance -1000 ml Output Urine Total 1000 ml # Voids 9 4 # Bowel Movements 2 2 General Appearance: no acute distress HEENT: atraumatic Respiratory: decreased breath sounds Cardiovascular: tachycardia Abdomen: soft, non tender Laboratory Tests 12/01/20 09:58: Urine Color Pale yellow, Urine Appearance Clear, Urine pH 5, Urine Specific [place] 1.010, Urine Protein Negative, Urine Glucose (UA) Negative, Urine Ketones Negative, Urine Blood Negative, Urine Nitrite Negative, Urine Bilirubin Negative, Urine Urobilinogen Normal, Urine Leukocyte Esterase Negative, Urine RBC 0, Urine WBC 0, Urine Squamous Epithelial Cells Occasional, Urine Bacteria Occasional, Urine Opiates Screen Negative, Urine Barbiturates Screen Negative, Phencyclidine (PCP) Screen Negative, Urine Amphetamines Screen Negative, Urine Benzodiazepines Screen Negative, Urine Cocaine Screen Negative, Urine Marijuana (THC) Screen Negative 12/02/20 05:00: Arterial Blood pH 7.451H, Arterial Blood Partial Pressure CO2 37.1, Arterial Blood Partial Pressure O2 51.3L, Arterial Blood HCO3 25.3, Arterial Blood Oxygen Saturation 83.6*L, Arterial Blood Base Excess 1.3, Amrik Test Positive 12/02/20 06:02: White Blood Count 5.4, Red Blood Count 2.80L, Hemoglobin 7.9L, Hematocrit 27.8L, Mean Corpuscular Volume 99, Mean Corpuscular Hemoglobin 28.1, Mean Corpuscular Hemoglobin Concent 28.4L, Red Cell Distribution Width 21.7H, Platelet Count 249, Mean Platelet Volume 5.6L, Neutrophils (%) (Auto) , Lymphocytes (%) (Auto) , Monocytes (%) (Auto) , Eosinophils (%) (Auto) , Basophils (%) (Auto) , Neutrophils % (Manual) [Pending], Lymphocytes % (Manual) [Pending], Platelet Estimate [Pending], Platelet Morphology [Pending], Sodium Level 142, Potassium Level 4.5, Chloride Level 107, Carbon Dioxide Level 29, Anion Gap 6, Blood Urea Nitrogen 21H, Creatinine 0.7, Estimat Glomerular Filtration Rate > 60, Glucose Level 134H, Hemoglobin A1c 4.6, Uric Acid 6.6, Calcium Level 8.6, Phosphorus Level 4.6, Magnesium Level 2.1, Total Bilirubin 0.3, Gamma Glutamyl Transpeptidase 35, Aspartate Amino Transf (AST/SGOT) 10L, Alanine Aminotransferase (ALT/SGPT) 10L, Alkaline Phosphatase 80, Ammonia 25, Troponin I 0.003, C-Reactive Protein, Quantitative 3.3H, Pro-B-Type Natriuretic Peptide 7745H, Total Protein 6.6, Albumin 2.7L, Globulin 3.9, Albumin/Globulin Ratio 0.7L, Triglycerides Level 98, Cholesterol Level 98, LDL Cholesterol 59, HDL Cholesterol 28L, Cholesterol/HDL Ratio 3.5, Vitamin D 25-Hydroxy [Pending], 25- Hydroxy Vitamin D2 [Pending], 25-Hydroxy Vitamin D3 [Pending], Thyroid Stimulating Hormone (TSH) 0.191L, Free Thyroxine 1.02 Current Medications Medications (Trade) Dose Ordered Sig/Sha Route PRN Reason Start Time Stop Time Status Last Admin Dose Admin Acetaminophen (Tylenol) 500 mg Q4H PRN ORAL For Pain 12/02/20 08:45 01/01/21 08:44 Acetaminophen (Tylenol) 500 mg Q4H PRN ORAL Temp >100.5 12/02/20 08:45 01/01/21 08:44 Albuterol/ Ipratropium (Combivent Respimat) 1 puff Q6HRT INH 12/01/20 19:00 12/31/20 18:59 12/02/20 07:10 Ceftriaxone Sodium 1 gm/ Dextrose 55 ml @ 110 mls/hr Q24H IVPB 12/01/20 12:00 12/08/20 11:59 12/01/20 13:44 Enoxaparin Sodium (Lovenox) 40 mg DAILY SUBQ 12/02/20 09:00 03/02/21 08:59 Furosemide (Lasix) 40 mg EVERY 12 HOURS IV 12/01/20 12:00 12/31/20 11:59 12/01/20 21:19 Gabapentin (Neurontin) 100 mg THREE TIMES A DAY ORAL 12/02/20 09:00 01/01/21 08:59 Iron Sucrose 100 mg/Sodium Chloride 60 ml @ 240 mls/hr BEDTIME IVPB 12/02/20 21:00 12/06/20 21:14 Methylprednisolone Sodium Succinate (Solu-MEDROL) 40 mg EVERY 6 HOURS IVP 12/01/20 12:00 03/01/21 11:59 12/02/20 05:56 Assessment/Plan Assessment/Plan 1. Anemia -Per primary MD 2. Elevated inflammatory markers -We will add Lovenox for DVT prophylaxis - Duplex ultrasound of legs negative for DVT 3. CHF - Elevated BNP - Cardio following -2D echo EF 65% -We will add Lasix 4. Pulmonary congestion, likely 2/2 to CHF -Provide supplemental oxygen as needed 5. COVID-19 PUI -COVID-19 swab has been sent -isolation precaution until COVID-19 results is available 6. Hypoxic respiratory distress - Provide supplemental oxygen as needed -We will continue DuoNeb -We will add Solu-Medrol 7. Smoker - Smoking cessation education 8. Infiltrates - Dw ID - We will start him on Rocephin The care for this patient was discussed with my supervising physician. Time spent for this case was approximately 31 minutes. Luis Torres Dec 02, 2020 09:27
[2020-12-02] MEDS: Enoxaparin 40mg Inj SUBQ SCH (09:28)
--- NOTE | 2020-12-02 09:45 | Cardiac Electrophysiology PN ---
Assessment/Plan Assessment/Plan 1. Congestive heart failure. BNP of > 7000 in this patient with ejection fraction of 65% by echocardiogram, likely due to diastolic dysfunction as well as pulmonary hypertension. On Lasix 40 mg IV b.i.d. 2. COPD and respiratory failure, on Solu-Medrol as well as ceftriaxone. 3. Anemia, etiology is not clear at this time, but could be anemia of chronic disease. 4. Hypertension. On Lasix at this time. Subjective Subjective Being Ruled out for Covid. No CP or SOB. On 2 liter NC. LE duplex was negative for DVT. EF 65% Objective Last 24 Hour Vital Signs Date Time Temp Pulse Resp B/P (MAP) Pulse Ox O2 Delivery O2 Flow Rate FiO2 12/02/20 08:00 99 12/02/20 08:00 98.7 100 20 106/61 (76) 94 12/02/20 04:00 106 12/02/20 04:00 98.6 101 20 125/81 (96) 94 12/02/20 00:00 100 12/02/20 00:00 99.0 96 18 135/79 (97) 93 12/01/20 21:00 Nasal Cannula 2.0 12/01/20 20:00 101 12/01/20 20:00 99.3 96 19 131/79 (96) 92 12/01/20 16:00 96 12/01/20 16:00 98.2 92 18 133/87 (102) 90 12/01/20 12:00 98.0 98 17 102/65 (77) 97 12/01/20 12:00 94 Intake and Output 12/01/20 12/02/20 19:00 07:00 Output Total 1000 ml Balance -1000 ml Output Urine Total 1000 ml # Voids 9 4 # Bowel Movements 2 2 Laboratory Tests Test 12/01/20 09:58 12/02/20 05:00 12/02/20 06:02 Urine Color Pale yellow Urine Appearance Clear Urine pH 5 (4.5-8.0) Urine Specific [place] 1.010 (1.005-1.035) Urine Protein Negative (NEGATIVE) Urine Glucose (UA) Negative (NEGATIVE) Urine Ketones Negative (NEGATIVE) Urine Blood Negative (NEGATIVE) Urine Nitrite Negative (NEGATIVE) Urine Bilirubin Negative (NEGATIVE) Urine Urobilinogen Normal MG/DL (0.0-1.0) Urine Leukocyte Esterase Negative (NEGATIVE) Urine RBC 0 /HPF (0 - 0) Urine WBC 0 /HPF (0 - 0) Urine Squamous Epithelial Cells Occasional /LPF Urine Bacteria Occasional /HPF (NONE) Urine Opiates Screen Negative (NEGATIVE) Urine Barbiturates Screen Negative (NEGATIVE) Phencyclidine (PCP) Screen Negative (NEGATIVE) Urine Amphetamines Screen Negative (NEGATIVE) Urine Benzodiazepines Screen Negative (NEGATIVE) Urine Cocaine Screen Negative (NEGATIVE) Urine Marijuana (THC) Screen Negative (NEGATIVE) Arterial Blood pH 7.451 (7.350-7.450) Arterial Blood Partial Pressure CO2 37.1 mmHg (35.0-45.0) Arterial Blood Partial Pressure O2 51.3 mmHg (75.0-100.0) L Arterial Blood HCO3 25.3 mmol/L (22.0-26.0) Arterial Blood Oxygen Saturation 83.6 % (95-100) *L Arterial Blood Base Excess 1.3 (-2-2) Amrik Test Positive White Blood Count 5.4 K/UL (4.8-10.8) Red Blood Count 2.80 M/UL (4.70-6.10) L Hemoglobin 7.9 G/DL (14.2-18.0) L Hematocrit 27.8 % (42.0-52.0) L Mean Corpuscular Volume 99 FL (80-99) Mean Corpuscular Hemoglobin 28.1 PG (27.0-31.0) Mean Corpuscular Hemoglobin Concent 28.4 G/DL (32.0-36.0) L Red Cell Distribution Width 21.7 % (11.6-14.8) H Platelet Count 249 K/UL (150-450) Mean Platelet Volume 5.6 FL (6.5-10.1) L Neutrophils (%) (Auto) % (45.0-75.0) Lymphocytes (%) (Auto) % (20.0-45.0) Monocytes (%) (Auto) % (1.0-10.0) Eosinophils (%) (Auto) % (0.0-3.0) Basophils (%) (Auto) % (0.0-2.0) Neutrophils % (Manual) Pending Lymphocytes % (Manual) Pending Platelet Estimate Pending Platelet Morphology Pending Sodium Level 142 MMOL/L (136-145) Potassium Level 4.5 MMOL/L (3.5-5.1) Chloride Level 107 MMOL/L (98-107) Carbon Dioxide Level 29 MMOL/L (21-32) Anion Gap 6 mmol/L (5-15) Blood Urea Nitrogen 21 mg/dL (7-18) H Creatinine 0.7 MG/DL (0.55-1.30) Estimat Glomerular Filtration Rate > 60 mL/min (>60) Glucose Level 134 MG/DL (74-106) H Hemoglobin A1c 4.6 % (4.3-6.0) Uric Acid 6.6 MG/DL (2.6-7.2) Calcium Level 8.6 MG/DL (8.5-10.1) Phosphorus Level 4.6 MG/DL (2.5-4.9) Magnesium Level 2.1 MG/DL (1.8-2.4) Total Bilirubin 0.3 MG/DL (0.2-1.0) Gamma Glutamyl Transpeptidase 35 U/L (5-85) Aspartate Amino Transf (AST/SGOT) 10 U/L (15-37) L Alanine Aminotransferase (ALT/SGPT) 10 U/L (12-78) L Alkaline Phosphatase 80 U/L (46-116) Ammonia 25 umol/L (11-32) Troponin I 0.003 ng/mL (0.000-0.056) C-Reactive Protein, Quantitative 3.3 mg/dL (0.00-0.90) H Pro-B-Type Natriuretic Peptide 7745 pg/mL (0-125) H Total Protein 6.6 G/DL (6.4-8.2) Albumin 2.7 G/DL (3.4-5.0) L Globulin 3.9 g/dL Albumin/Globulin Ratio 0.7 (1.0-2.7) L Triglycerides Level 98 MG/DL (30-150) Cholesterol Level 98 MG/DL (< 200) LDL Cholesterol 59 mg/dL (<100) HDL Cholesterol 28 MG/DL (40-60) L Cholesterol/HDL Ratio 3.5 (3.3-4.4) Vitamin D 25-Hydroxy Pending 25-Hydroxy Vitamin D2 Pending 25-Hydroxy Vitamin D3 Pending Thyroid Stimulating Hormone (TSH) 0.191 uiU/mL (0.358-3.740) Free Thyroxine 1.02 NG/DL (0.76-1.46) Objective HEAD AND NECK: No JVD. LUNGS: Clear. CARDIOVASCULAR: Regular S1 and S2 with no gallop or murmur. ABDOMEN: Soft. EXTREMITIES: No pitting edema. Christian Mendoza MD Dec 02, 2020 09:45
--- NOTE | 2020-12-02 10:30 | Infectious Diseases Prog Note ---
Assessment/Plan Assessment/Plan A: 1. Pneumonia. His COVID-19 test was negative on 11/26/2020. 2. Congestive heart failure, mild diastolic 3. Hypertension. 4. COPD. 5. Anemia PLAN: 1. We will start the patient on ceftriaxone. 2. We will follow up cultures and adjust antibiotics accordingly. Subjective ROS Limited/Unobtainable: Yes Constitutional: Denies: fever Respiratory: Reports: no symptoms Gastrointestinal/Abdominal: Reports: no symptoms Allergies: Coded Allergies: CODEINE (Verified Allergy, Unknown, 12/01/20) Objective Last 24 Hour Vital Signs Date Time Temp Pulse Resp B/P (MAP) Pulse Ox O2 Delivery O2 Flow Rate FiO2 12/02/20 08:00 99 12/02/20 08:00 98.7 100 20 106/61 (76) 94 12/02/20 04:00 106 12/02/20 04:00 98.6 101 20 125/81 (96) 94 12/02/20 00:00 100 12/02/20 00:00 99.0 96 18 135/79 (97) 93 12/01/20 21:00 Nasal Cannula 2.0 12/01/20 20:00 101 12/01/20 20:00 99.3 96 19 131/79 (96) 92 12/01/20 16:00 96 12/01/20 16:00 98.2 92 18 133/87 (102) 90 12/01/20 12:00 98.0 98 17 102/65 (77) 97 12/01/20 12:00 94 Height (Feet): 5 Height (Inches): 7.00 Weight (Pounds): 147 General Appearance: no acute distress HEENT: mucous membranes moist Respiratory/Chest: lungs clear Cardiovascular: tachycardia Abdomen: soft, non tender, other - obese Extremities: no edema Neurologic/Psychiatric: alert, responsive Laboratory Tests Test 12/02/20 05:00 12/02/20 06:02 Arterial Blood pH 7.451 (7.350-7.450) Arterial Blood Partial Pressure CO2 37.1 mmHg (35.0-45.0) Arterial Blood Partial Pressure O2 51.3 mmHg (75.0-100.0) L Arterial Blood HCO3 25.3 mmol/L (22.0-26.0) Arterial Blood Oxygen Saturation 83.6 % (95-100) *L Arterial Blood Base Excess 1.3 (-2-2) Amrik Test Positive White Blood Count 5.4 K/UL (4.8-10.8) Red Blood Count 2.80 M/UL (4.70-6.10) L Hemoglobin 7.9 G/DL (14.2-18.0) L Hematocrit 27.8 % (42.0-52.0) L Mean Corpuscular Volume 99 FL (80-99) Mean Corpuscular Hemoglobin 28.1 PG (27.0-31.0) Mean Corpuscular Hemoglobin Concent 28.4 G/DL (32.0-36.0) L Red Cell Distribution Width 21.7 % (11.6-14.8) H Platelet Count 249 K/UL (150-450) Mean Platelet Volume 5.6 FL (6.5-10.1) L Neutrophils (%) (Auto) % (45.0-75.0) Lymphocytes (%) (Auto) % (20.0-45.0) Monocytes (%) (Auto) % (1.0-10.0) Eosinophils (%) (Auto) % (0.0-3.0) Basophils (%) (Auto) % (0.0-2.0) Differential Total Cells Counted 100 Neutrophils % (Manual) 79 % (45-75) H Lymphocytes % (Manual) 13 % (20-45) L Monocytes % (Manual) 8 % (1-10) Eosinophils % (Manual) 0 % (0-3) Basophils % (Manual) 0 % (0-2) Band Neutrophils 0 % (0-8) Nucleated Red Blood Cells 2 /100 WBC Platelet Estimate Adequate Platelet Morphology Normal Hypochromasia 1+ Anisocytosis 1+ Macrocytosis 1+ Sodium Level 142 MMOL/L (136-145) Potassium Level 4.5 MMOL/L (3.5-5.1) Chloride Level 107 MMOL/L (98-107) Carbon Dioxide Level 29 MMOL/L (21-32) Anion Gap 6 mmol/L (5-15) Blood Urea Nitrogen 21 mg/dL (7-18) H Creatinine 0.7 MG/DL (0.55-1.30) Estimat Glomerular Filtration Rate > 60 mL/min (>60) Glucose Level 134 MG/DL (74-106) H Hemoglobin A1c 4.6 % (4.3-6.0) Uric Acid 6.6 MG/DL (2.6-7.2) Calcium Level 8.6 MG/DL (8.5-10.1) Phosphorus Level 4.6 MG/DL (2.5-4.9) Magnesium Level 2.1 MG/DL (1.8-2.4) Total Bilirubin 0.3 MG/DL (0.2-1.0) Gamma Glutamyl Transpeptidase 35 U/L (5-85) Aspartate Amino Transf (AST/SGOT) 10 U/L (15-37) L Alanine Aminotransferase (ALT/SGPT) 10 U/L (12-78) L Alkaline Phosphatase 80 U/L (46-116) Ammonia 25 umol/L (11-32) Troponin I 0.003 ng/mL (0.000-0.056) C-Reactive Protein, Quantitative 3.3 mg/dL (0.00-0.90) H Pro-B-Type Natriuretic Peptide 7745 pg/mL (0-125) H Total Protein 6.6 G/DL (6.4-8.2) Albumin 2.7 G/DL (3.4-5.0) L Globulin 3.9 g/dL Albumin/Globulin Ratio 0.7 (1.0-2.7) L Triglycerides Level 98 MG/DL (30-150) Cholesterol Level 98 MG/DL (< 200) LDL Cholesterol 59 mg/dL (<100) HDL Cholesterol 28 MG/DL (40-60) L Cholesterol/HDL Ratio 3.5 (3.3-4.4) Vitamin D 25-Hydroxy Pending 25-Hydroxy Vitamin D2 Pending 25-Hydroxy Vitamin D3 Pending Thyroid Stimulating Hormone (TSH) 0.191 uiU/mL (0.358-3.740) Free Thyroxine 1.02 NG/DL (0.76-1.46) Current Medications Medications (Trade) Dose Ordered Sig/Sha Route PRN Reason Start Time Stop Time Status Last Admin Dose Admin Acetaminophen (Tylenol) 500 mg Q4H PRN ORAL For Pain 12/02/20 08:45 01/01/21 08:44 Acetaminophen (Tylenol) 500 mg Q4H PRN ORAL Temp >100.5 12/02/20 08:45 01/01/21 08:44 Albuterol/ Ipratropium (Combivent Respimat) 1 puff Q6HRT INH 12/01/20 19:00 12/31/20 18:59 12/02/20 07:10 Ceftriaxone Sodium 1 gm/ Dextrose 55 ml @ 110 mls/hr Q24H IVPB 12/01/20 12:00 12/08/20 11:59 12/01/20 13:44 Enoxaparin Sodium (Lovenox) 40 mg DAILY SUBQ 12/02/20 09:00 03/02/21 08:59 12/02/20 09:28 Furosemide (Lasix) 40 mg EVERY 12 HOURS IV 12/01/20 12:00 12/31/20 11:59 12/02/20 09:27 Gabapentin (Neurontin) 100 mg THREE TIMES A DAY ORAL 12/02/20 09:00 01/01/21 08:59 12/02/20 09:28 Iron Sucrose 100 mg/Sodium Chloride 60 ml @ 240 mls/hr BEDTIME IVPB 12/02/20 21:00 12/06/20 21:14 Methylprednisolone Sodium Succinate (Solu-MEDROL) 40 mg EVERY 6 HOURS IVP 12/01/20 12:00 03/01/21 11:59 12/02/20 05:56 Lucian Espinoza MD Dec 02, 2020 10:29
[2020-12-02 11:29] VITALS: BP 129/83
[2020-12-02] MEDS: cefTRIAXone 1 GM in D5W 55 ML IVPB SCH (12:41)
--- NOTE | 2020-12-02 14:00 | Diagnostic Imaging Report ---
Indication: Leg pain Technique: Grayscale and duplex images of the bilateral lower extremity veins Comparison: none Findings: Bilaterally, grayscale and duplex images demonstrate no evidence of intraluminal thrombus. Normal phasic Doppler waveforms, demonstrating normal augmentation response and no evidence of valvular insufficiency. Greater saphenous vein(s) and tibial veins are patent. Normal compressibility. Impression: Negative for evidence of lower extremity deep venous thrombosis bilaterally
[2020-12-02 16:00] VITALS: BP 121/78
[2020-12-02] MEDS ORDERED: NICODERM CQ1 EAC1 TD (18:56)
[2020-12-02] MEDS ORDERED: CRANBERRY450 M5 PO (18:56)
[2020-12-02] MEDS ORDERED: ZINC SULFATE220 M1 ORAL (18:56)
[2020-12-02] MEDS ORDERED: POVIDONE IODIN TP (18:56)
[2020-12-02] MEDS ORDERED: MONISTAT-DER1 APPLIC TOPIC (18:56)
[2020-12-02] MEDS ORDERED: GUAIFENESI100 MG/5 M ORAL (18:56)
[2020-12-02] MEDS ORDERED: ADVAIR HFA 45-212 GM INH (18:56)
[2020-12-02] MEDS ORDERED: DOCUSATE SODIU100 MG ORAL (18:56)
[2020-12-02] MEDS ORDERED: MILK OF MA400 MG/51 ORAL (18:56)
[2020-12-02] MEDS ORDERED: VITAMIN B-1100 MG ORAL (18:56)
[2020-12-02] MEDS ORDERED: BISACODYL10 M1 RC (18:56)
[2020-12-02] MEDS ORDERED: SEN-O-TAB8.6 MG ORAL (18:56)
[2020-12-02] MEDS ORDERED: SILVADENE20 GM TP (18:56)
[2020-12-02] MEDS ORDERED: MULTIVITAMINS1 EA13 ORAL (18:56)
[2020-12-02] MEDS ORDERED: NICORETTE2 M2 BC (18:56)
[2020-12-02] MEDS ORDERED: SPIRIVA18 MCG INH (18:56)
[2020-12-02 20:00] VITALS: BP 123/71
--- NOTE | 2020-12-02 20:21 | General Progress Note ---
Subjective ROS Limited/Unobtainable: Yes Allergies: Coded Allergies: CODEINE (Verified Allergy, Unknown, 12/01/20) Objective Last 24 Hour Vital Signs Date Time Temp Pulse Resp B/P (MAP) Pulse Ox O2 Delivery O2 Flow Rate FiO2 12/02/20 20:00 96 12/02/20 16:00 97.9 89 20 121/78 (92) 98 12/02/20 16:00 89 12/02/20 12:00 95 12/02/20 11:29 98.8 105 20 129/83 (98) 95 12/02/20 09:00 Nasal Cannula 5.0 12/02/20 08:00 99 12/02/20 08:00 98.7 100 20 106/61 (76) 94 12/02/20 04:00 106 12/02/20 04:00 98.6 101 20 125/81 (96) 94 12/02/20 00:00 100 12/02/20 00:00 99.0 96 18 135/79 (97) 93 12/01/20 21:00 Nasal Cannula 2.0 Intake and Output 12/01/20 12/02/20 19:00 07:00 Output Total 1000 ml Balance -1000 ml Output Urine Total 1000 ml # Voids 9 4 # Bowel Movements 2 2 Laboratory Tests 12/02/20 05:00: Arterial Blood pH 7.451H, Arterial Blood Partial Pressure CO2 37.1, Arterial B lood Partial Pressure O2 51.3L, Arterial Blood HCO3 25.3, Arterial Blood Oxygen Saturation 83.6*L, Arterial Blood Base Excess 1.3, Amrik Test Positive 12/02/20 06:02: White Blood Count 5.4, Red Blood Count 2.80L, Hemoglobin 7.9L, Hematocrit 27.8L, Mean Corpuscular Volume 99, Mean Corpuscular Hemoglobin 28.1, Mean Corpuscular Hemoglobin Concent 28.4L, Red Cell Distribution Width 21.7H, Platelet Count 249, Mean Platelet Volume 5.6L, Neutrophils (%) (Auto) , Lymphocytes (%) (Auto) , Monocytes (%) (Auto) , Eosinophils (%) (Auto) , Basophils (%) (Auto) , Differential Total Cells Counted 100, Neutrophils % (Manual) 79H, Lymphocytes % (Manual) 13L, Monocytes % (Manual) 8, Eosinophils % (Manual) 0, Basophils % (Manual) 0, Band Neutrophils 0, Nucleated Red Blood Cells 2, Platelet Estimate Adequate, Platelet Morphology Normal, Hypochromasia 1+, Anisocytosis 1+, Macrocytosis 1+, Sodium Level 142, Potassium Level 4.5, Chloride Level 107, Carbon Dioxide Level 29, Anion Gap 6, Blood Urea Nitrogen 21H, Creatinine 0.7, Estimat Glomerular Filtration Rate > 60, Glucose Level 134H, Hemoglobin A1c 4.6, Uric Acid 6.6, Calcium Level 8.6, Phosphorus Level 4.6, Magnesium Level 2.1, Total Bilirubin 0.3, Gamma Glutamyl Transpeptidase 35, Aspartate Amino Transf (AST/SGOT) 10L, Alanine Aminotransferase (ALT/SGPT) 10L, Alkaline Phosphatase 80, Ammonia 25, Troponin I 0.003, C-Reactive Protein, Quantitative 3.3H, Pro-B-Type Natriuretic Peptide 7745H, Total Protein 6.6, Albumin 2.7L, Globulin 3.9, Albumin/Globulin Ratio 0.7L, Triglycerides Level 98, Cholesterol Level 98, LDL Cholesterol 59, HDL Cholesterol 28L, Cholesterol/HDL Ratio 3.5, Vitamin D 25-Hydroxy [Pending], 25-Hydroxy Vitamin D2 [Pending], 25-Hydroxy Vitamin D3 [Pending], Thyroid Stimulating Hormone (TSH) 0.191L, Free Thyroxine 1.02 Height (Feet): 5 Height (Inches): 7.00 Weight (Pounds): 147 Assessment/Plan Problem List: (1) HCAP (healthcare-associated pneumonia) ICD Codes: J18.9 - Pneumonia, unspecified organism SNOMED: 507400644, 083376198 (2) Anemia ICD Codes: D64.9 - Anemia, unspecified SNOMED: 917029146, 584082970 Qualifiers: Qualified Codes: D64.9 - Anemia, unspecified (3) Chronic pain ICD Codes: G89.29 - Other chronic pain SNOMED: 66778146, 302455250 Qualifiers: Qualified Codes: G89.4 - Chronic pain syndrome (4) CHF exacerbation ICD Codes: I50.9 - Heart failure, unspecified SNOMED: 379922543, 09238204812119 Qualifiers: Qualified Codes: I50.9 - Heart failure, unspecified (5) Acute respiratory failure with hypoxia ICD Codes: J96.01 - Acute respiratory failure with hypoxia SNOMED: 93194158, 935312398 Status: progressing Assessment/Plan: chf exacerbation s/p hyoxic still sob mild cough La Pal MD Dec 02, 2020 20:21
[2020-12-02] MEDS: Iron Sucrose 100 MG in NS 55 ML IVPB SCH (21:14)
[2020-12-03] VITALS: BP 140/82
[2020-12-03] MEDS: Solu-MEDROL 40mg Inj IVP SCH ×4 (00:13→17:56)
[2020-12-03 04:00] VITALS: BP 133/74
[2020-12-03 08:00] VITALS: BP 130/80
--- NOTE | 2020-12-03 08:21 | General Progress Note ---
Subjective Date patient seen: Dec 03, 2020 Time patient seen: 07:00 - am Allergies: Coded Allergies: CODEINE (Verified Allergy, Unknown, 12/01/20) Subjective HISTORY OF PRESENT ILLNESS: The patient is a 60-year-old male who is being seen on the telemetry floor of [facility]. Patient in bed no signs of pain or distress. REVIEW OF SYSTEMS: Denies rash, fever, chills, sweating, dizziness, drowsiness, blurred vision, sore throat, or change in hearing or weight. No nausea, vomiting, diarrhea, or blood in the stool or urine. No dysuria. Objective Last 24 Hour Vital Signs Date Time Temp Pulse Resp B/P (MAP) Pulse Ox O2 Delivery O2 Flow Rate FiO2 12/03/20 08:00 97.7 96 20 130/80 (97) 96 12/03/20 04:00 97.6 72 19 133/74 (93) 97 12/03/20 04:00 82 12/03/20 00:00 97.9 79 20 140/82 (101) 98 12/02/20 21:00 Nasal Cannula 5.0 12/02/20 20:00 99.7 98 18 123/71 (88) 95 12/02/20 20:00 96 12/02/20 16:00 97.9 89 20 121/78 (92) 98 12/02/20 16:00 89 12/02/20 12:00 95 12/02/20 11:29 98.8 105 20 129/83 (98) 95 12/02/20 09:00 Nasal Cannula 5.0 Intake and Output 12/02/20 12/03/20 18:59 06:59 Intake Total 610 ml 240 ml Output Total 950 ml 1300 ml Balance -340 ml -1060 ml Intake Oral 610 ml 240 ml Output Urine Total 950 ml 1300 ml Height (Feet): 5 Height (Inches): 7.00 Weight (Pounds): 147 Objective PHYSICAL EXAMINATION: GENERAL: Alert, awake, and oriented. LUNGS: Decreased breath sounds bilaterally. HEART: S1 and S2 regular. ABDOMEN: Soft and nontender. EXTREMITIES: No cyanosis. No clubbing. NEURO: No changes. Assessment/Plan Assessment/Plan: (1) Degenerative joint disease (2) Multiple joint pain Patient to be continued on Tylenol and Neurontin D/w Dr. Camacho and he concurred. Scott Yates Dec 03, 2020 08:21
[2020-12-03] MEDS: Enoxaparin 40mg Inj SUBQ SCH (08:31)
--- NOTE | 2020-12-03 10:04 | Cardiac Electrophysiology PN ---
Assessment/Plan Assessment/Plan 1. Congestive heart failure with BNP of > 7000 in this patient with ejection fraction of 65% by echocardiogram, likely due to diastolic dysfunction as well as pulmonary hypertension. On Lasix 40 mg IV b.i.d. 2. COPD and respiratory failure, on Solu-Medrol 40 iv q 6 as well as ceftriaxone. Ruled out for Covid 3. Anemia, etiology is not clear at this time, but could be anemia of chronic disease. 4. Hypertension. On Lasix at this time. Subjective Subjective Ruled out for Covid as PCR negative on 12/01/20. No CP or SOB but confused. On RA. LE duplex was negative for DVT. EF 65% Objective Last 24 Hour Vital Signs Date Time Temp Pulse Resp B/P (MAP) Pulse Ox O2 Delivery O2 Flow Rate FiO2 12/03/20 08:00 97.7 96 20 130/80 (97) 96 12/03/20 04:00 97.6 72 19 133/74 (93) 97 12/03/20 04:00 82 12/03/20 00:00 97.9 79 20 140/82 (101) 98 12/02/20 21:00 Nasal Cannula 5.0 12/02/20 20:00 99.7 98 18 123/71 (88) 95 12/02/20 20:00 96 12/02/20 16:00 97.9 89 20 121/78 (92) 98 12/02/20 16:00 89 12/02/20 12:00 95 12/02/20 11:29 98.8 105 20 129/83 (98) 95 Intake and Output 12/02/20 12/03/20 19:00 07:00 Intake Total 610 ml 240 ml Output Total 950 ml 1300 ml Balance -340 ml -1060 ml Intake Oral 610 ml 240 ml Output Urine Total 950 ml 1300 ml Microbiology Date/Time Source Procedure Growth Status 12/01/20 05:25 Nasopharynx Coronavirus COVID-19 PCR (ERICK) - Final Complete Objective HEAD AND NECK: No JVD. LUNGS: Clear. CARDIOVASCULAR: Regular S1 and S2 with no gallop or murmur. ABDOMEN: Soft. EXTREMITIES: No pitting edema. Christian Mendoza MD Dec 03, 2020 10:04
--- NOTE | 2020-12-03 11:28 | Infectious Diseases Prog Note ---
Assessment/Plan Assessment/Plan A: 1. Pneumonia. COVID19 test negative on 11/26 & 12/01 2. Congestive heart failure, mild diastolic 3. Hypertension. 4. COPD. 5. Anemia PLAN: 1. Continue ceftriaxone. 2. We will follow up cultures Subjective ROS Limited/Unobtainable: Yes Constitutional: Reports: no symptoms Respiratory: Reports: no symptoms Gastrointestinal/Abdominal: Reports: no symptoms Allergies: Coded Allergies: CODEINE (Verified Allergy, Unknown, 12/01/20) Objective Last 24 Hour Vital Signs Date Time Temp Pulse Resp B/P (MAP) Pulse Ox O2 Delivery O2 Flow Rate FiO2 12/03/20 09:00 Nasal Cannula 3.0 12/03/20 08:00 93 12/03/20 08:00 97.7 96 20 130/80 (97) 96 12/03/20 04:00 97.6 72 19 133/74 (93) 97 12/03/20 04:00 82 12/03/20 00:00 97.9 79 20 140/82 (101) 98 12/02/20 21:00 Nasal Cannula 5.0 12/02/20 20:00 99.7 98 18 123/71 (88) 95 12/02/20 20:00 96 12/02/20 16:00 97.9 89 20 121/78 (92) 98 12/02/20 16:00 89 12/02/20 12:00 95 12/02/20 11:29 98.8 105 20 129/83 (98) 95 Height (Feet): 5 Height (Inches): 7.00 Weight (Pounds): 147 HEENT: mucous membranes moist Respiratory/Chest: lungs clear Cardiovascular: normal rate Abdomen: distended, other - soft Neurologic/Psychiatric: alert, responsive, other - hearing loss Microbiology Date/Time Source Procedure Growth Status 12/01/20 06:20 Rectum - Final NO CARBAPENEM-RESISTANT ENTEROBACTERI... Complete 12/01/20 05:30 Blood Blood Culture - Preliminary NO GROWTH AFTER 48 HOURS Resulted 12/01/20 05:25 Nasopharynx Coronavirus COVID-19 PCR (ERICK) - Final Complete 12/01/20 05:14 Blood Blood Culture - Preliminary NO GROWTH AFTER 48 HOURS Resulted Current Medications Medications (Trade) Dose Ordered Sig/Sha Route PRN Reason Start Time Stop Time Status Last Admin Dose Admin Acetaminophen (Tylenol) 500 mg Q4H PRN ORAL For Pain 12/02/20 08:45 01/01/21 08:44 Acetaminophen (Tylenol) 500 mg Q4H PRN ORAL Temp >100.5 12/02/20 08:45 01/01/21 08:44 Albuterol/ Ipratropium (Combivent Respimat) 1 puff Q6HRT INH 12/01/20 19:00 12/31/20 18:59 12/03/20 06:11 Ceftriaxone Sodium 1 gm/ Dextrose 55 ml @ 110 mls/hr Q24H IVPB 12/01/20 12:00 12/08/20 11:59 12/02/20 12:41 Enoxaparin Sodium (Lovenox) 40 mg DAILY SUBQ 12/02/20 09:00 03/02/21 08:59 12/03/20 08:31 Furosemide (Lasix) 40 mg EVERY 12 HOURS IV 12/01/20 12:00 12/31/20 11:59 12/03/20 08:30 Gabapentin (Neurontin) 100 mg THREE TIMES A DAY ORAL 12/02/20 09:00 01/01/21 08:59 12/03/20 08:30 Iron Sucrose 100 mg/Sodium Chloride 60 ml @ 240 mls/hr BEDTIME IVPB 12/02/20 21:00 12/06/20 21:14 12/02/20 21:14 Methylprednisolone Sodium Succinate (Solu-MEDROL) 40 mg EVERY 6 HOURS IVP 12/01/20 12:00 03/01/21 11:59 12/03/20 06:10 Lucian Espinoza MD Dec 03, 2020 11:28
[2020-12-03 12:00] VITALS: BP 144/78
[2020-12-03] MEDS: cefTRIAXone 1 GM in D5W 55 ML IVPB SCH (12:30)
--- NOTE | 2020-12-03 13:31 | General Progress Note ---
Subjective ROS Limited/Unobtainable: Yes Allergies: Coded Allergies: CODEINE (Verified Allergy, Unknown, 12/01/20) Objective Last 24 Hour Vital Signs Date Time Temp Pulse Resp B/P (MAP) Pulse Ox O2 Delivery O2 Flow Rate FiO2 12/03/20 12:00 97.7 106 22 144/78 (100) 95 12/03/20 12:00 96 12/03/20 09:00 Nasal Cannula 3.0 12/03/20 08:00 93 12/03/20 08:00 97.7 96 20 130/80 (97) 96 12/03/20 04:00 97.6 72 19 133/74 (93) 97 12/03/20 04:00 82 12/03/20 00:00 97.9 79 20 140/82 (101) 98 12/02/20 21:00 Nasal Cannula 5.0 12/02/20 20:00 99.7 98 18 123/71 (88) 95 12/02/20 20:00 96 12/02/20 16:00 97.9 89 20 121/78 (92) 98 12/02/20 16:00 89 Intake and Output 12/02/20 12/03/20 19:00 07:00 Intake Total 610 ml 240 ml Output Total 950 ml 1300 ml Balance -340 ml -1060 ml Intake Oral 610 ml 240 ml Output Urine Total 950 ml 1300 ml Height (Feet): 5 Height (Inches): 7.00 Weight (Pounds): 147 Assessment/Plan Problem List: (1) HCAP (healthcare-associated pneumonia) ICD Codes: J18.9 - Pneumonia, unspecified organism SNOMED: 478854451, 122653281 (2) Anemia ICD Codes: D64.9 - Anemia, unspecified SNOMED: 974887016, 281926601 Qualifiers: Qualified Codes: D64.9 - Anemia, unspecified (3) Chronic pain ICD Codes: G89.29 - Other chronic pain SNOMED: 77057493, 667725532 Qualifiers: Qualified Codes: G89.4 - Chronic pain syndrome (4) CHF exacerbation ICD Codes: I50.9 - Heart failure, unspecified SNOMED: 904697211, [id number] Qualifiers: Qualified Codes: I50.9 - Heart failure, unspecified (5) Acute respiratory failure with hypoxia ICD Codes: J96.01 - Acute respiratory failure with hypoxia SNOMED: 91208527, 606762522 Assessment/Plan: chf exacerbation pna weak poor intake s/p hyoxic still sob mild cough La Pal MD Dec 03, 2020 13:31
--- NOTE | 2020-12-03 15:18 | Consultation ---
Consult Note Assessment/Plan Normal left ventricular chamber size, systolic function and wall motion. Left ventricular ejection fraction estimated to be 65 %. Borderline left ventricular hypertrophy by 2-D. Anterior Echo-free space, may be due to pericardial fat or effusion. Mild bi-atrial enlargement. Chest x-ray IMPRESSION: There are moderate bilateral perihilar and lower lobe mixed interstitial and alveolar infiltrates most likely representing pulmonary edema. Pneumonitis not completely excluded. Hong Wall MD Dec 03, 2020 15:18
--- NOTE | 2020-12-03 15:24 | Nephrology Progress Note ---
Assessment/Plan Problem List: (1) CHF exacerbation (2) Anemia (3) HCAP (healthcare-associated pneumonia) (4) Acute respiratory failure with hypoxia Assessment Iron deficiency anemia Respiratory failure Exacerbation of CHF Chronic pain Hypoalbuminemia Plan December 03: Stable from renal standpoint of view. No labs drawn today. We will continue to monitor electrolytes and renal parameters. IV iron Stool OB Demise cardiac and pulmonary status Per orders Subjective ROS Limited/Unobtainable: Yes Objective Objective Last 24 Hour Vital Signs Date Time Temp Pulse Resp B/P (MAP) Pulse Ox O2 Delivery O2 Flow Rate FiO2 12/03/20 12:00 97.7 106 22 144/78 (100) 95 12/03/20 12:00 96 12/03/20 09:00 Nasal Cannula 3.0 12/03/20 08:00 93 12/03/20 08:00 97.7 96 20 130/80 (97) 96 12/03/20 04:00 97.6 72 19 133/74 (93) 97 12/03/20 04:00 82 12/03/20 00:00 97.9 79 20 140/82 (101) 98 12/02/20 21:00 Nasal Cannula 5.0 12/02/20 20:00 99.7 98 18 123/71 (88) 95 12/02/20 20:00 96 12/02/20 16:00 97.9 89 20 121/78 (92) 98 12/02/20 16:00 89 l Intake and Output 12/02/20 12/03/20 19:00 07:00 Intake Total 610 ml 240 ml Output Total 950 ml 1300 ml Balance -340 ml -1060 ml Intake Oral 610 ml 240 ml Output Urine Total 950 ml 1300 ml No CHEM panel drawn today Height (Feet): 5 Height (Inches): 7.00 Weight (Pounds): 147 General Appearance: no apparent distress Cardiovascular: tachycardia Respiratory/Chest: decreased breath sounds Abdomen: distended Hong Wall MD Dec 03, 2020 15:24
[2020-12-03 16:00] VITALS: BP 135/75
--- NOTE | 2020-12-03 16:21 | Pulmonology Progress Note ---
Subjective ROS Limited/Unobtainable: No Constitutional: Reports: no symptoms HEENT: Repors: no symptoms Respiratory: Reports: no symptoms Cardiovascular: Reports: no symptoms Gastrointestinal/Abdominal: Reports: no symptoms Allergies: Coded Allergies: CODEINE (Verified Allergy, Unknown, 12/01/20) Objective Last 24 Hour Vital Signs Date Time Temp Pulse Resp B/P (MAP) Pulse Ox O2 Delivery O2 Flow Rate FiO2 12/03/20 16:00 97.7 97 20 135/75 (95) 96 12/03/20 12:00 97.7 106 22 144/78 (100) 95 12/03/20 12:00 96 12/03/20 09:00 Nasal Cannula 3.0 12/03/20 08:00 93 12/03/20 08:00 97.7 96 20 130/80 (97) 96 12/03/20 04:00 97.6 72 19 133/74 (93) 97 12/03/20 04:00 82 12/03/20 00:00 97.9 79 20 140/82 (101) 98 12/02/20 21:00 Nasal Cannula 5.0 12/02/20 20:00 99.7 98 18 123/71 (88) 95 12/02/20 20:00 96 Intake and Output 12/02/20 12/03/20 19:00 07:00 Intake Total 610 ml 240 ml Output Total 950 ml 1300 ml Balance -340 ml -1060 ml Intake Oral 610 ml 240 ml Output Urine Total 950 ml 1300 ml General Appearance: no acute distress HEENT: atraumatic Respiratory: decreased breath sounds Cardiovascular: tachycardia Abdomen: soft, non tender Microbiology Date/Time Source Procedure Growth Status 12/01/20 06:20 Rectum - Final NO CARBAPENEM-RESISTANT ENTEROBACTERI... Complete 12/01/20 06:20 Nasal Nares MRSA Culture - Final NO METHICILLIN RESISTANT STAPH AUREUS... Complete 12/01/20 05:30 Blood Blood Culture - Preliminary NO GROWTH AFTER 48 HOURS Resulted 12/01/20 05:25 Nasopharynx Coronavirus COVID-19 PCR ([facility]) - Final Complete 12/01/20 05:14 Blood Blood Culture - Preliminary NO GROWTH AFTER 48 HOURS Resulted Current Medications Medications (Trade) Dose Ordered Sig/Sha Route PRN Reason Start Time Stop Time Status Last Admin Dose Admin Acetaminophen (Tylenol) 500 mg Q4H PRN ORAL For Pain 12/02/20 08:45 01/01/21 08:44 Acetaminophen (Tylenol) 500 mg Q4H PRN ORAL Temp >100.5 12/02/20 08:45 01/01/21 08:44 Albuterol/ Ipratropium (Combivent Respimat) 1 puff Q6HRT INH 12/01/20 19:00 12/31/20 18:59 12/03/20 12:30 Ceftriaxone Sodium 1 gm/ Dextrose 55 ml @ 110 mls/hr Q24H IVPB 12/01/20 12:00 12/08/20 11:59 12/03/20 12:30 Enoxaparin Sodium (Lovenox) 40 mg DAILY SUBQ 12/02/20 09:00 03/02/21 08:59 12/03/20 08:31 Furosemide (Lasix) 40 mg EVERY 12 HOURS IV 12/01/20 12:00 12/31/20 11:59 12/03/20 08:30 Gabapentin (Neurontin) 100 mg THREE TIMES A DAY ORAL 12/02/20 09:00 01/01/21 08:59 12/03/20 12:28 Iron Sucrose 100 mg/Sodium Chloride 60 ml @ 240 mls/hr BEDTIME IVPB 12/02/20 21:00 12/06/20 21:14 12/02/20 21:14 Methylprednisolone Sodium Succinate (Solu-MEDROL) 40 mg EVERY 6 HOURS IVP 12/01/20 12:00 03/01/21 11:59 12/03/20 12:30 Assessment/Plan Assessment/Plan 1. Anemia -Per primary MD -On IV iron 2. Elevated inflammatory markers -We will add Lovenox for DVT prophylaxis - Duplex ultrasound of legs negative for DVT 3. CHF - Elevated BNP - Cardio following -2D echo EF 65% -We will add Lasix 4. Pulmonary congestion, likely 2/2 to CHF -Provide supplemental oxygen as needed 5. COVID-19 PCR negative -Off isolation 6. Hypoxic respiratory distress -Currently saturating at 95% on 3 L NC; wean as tolerated -We will continue DuoNeb -We will add Solu-Medrol 7. Smoker - Smoking cessation education 8. Infiltrates - Dw ID - We will start him on Rocephin The care for this patient was discussed with my supervising physician. Time spent for this case was approximately 31 minutes. Luis Torres Dec 03, 2020 16:21
[2020-12-03 20:00] VITALS: BP 141/79
[2020-12-03] MEDS: Iron Sucrose 100 MG in NS 55 ML IVPB SCH (21:23)
[2020-12-04] VITALS: BP 147/86
[2020-12-04] MEDS: Solu-MEDROL 40mg Inj IVP SCH ×4 (00:32→17:02)
[2020-12-04 04:00] VITALS: BP 128/73
[2020-12-04 08:00] VITALS: BP 116/68
[2020-12-04] MEDS: Enoxaparin 40mg Inj SUBQ SCH (08:04)
--- NOTE | 2020-12-04 08:21 | General Progress Note ---
Subjective Date patient seen: Dec 04, 2020 Time patient seen: 07:00 - am Allergies: Coded Allergies: CODEINE (Verified Allergy, Unknown, 12/01/20) Subjective HISTORY OF PRESENT ILLNESS: The patient is a 60-year-old male who is being seen on the telemetry floor of [facility]. Patient showing no signs of pain or distress. In bed with no new complaints at this time. REVIEW OF SYSTEMS: Denies rash, fever, chills, sweating, dizziness, drowsiness, blurred vision, sore throat, or change in hearing or weight. No nausea, vomiting, diarrhea, or blood in the stool or urine. No dysuria. Objective Last 24 Hour Vital Signs Date Time Temp Pulse Resp B/P (MAP) Pulse Ox O2 Delivery O2 Flow Rate FiO2 12/04/20 04:00 97.9 93 20 128/73 (91) 96 12/04/20 04:00 93 12/04/20 00:00 99 12/04/20 00:00 98.2 99 20 147/86 (106) 98 12/03/20 21:00 Nasal Cannula 2.0 12/03/20 20:00 97 12/03/20 20:00 99.0 91 20 141/79 (99) 98 12/03/20 16:00 98 12/03/20 16:00 97.7 97 20 135/75 (95) 96 12/03/20 12:00 97.7 106 22 144/78 (100) 95 12/03/20 12:00 96 12/03/20 09:00 Nasal Cannula 3.0 Intake and Output 12/03/20 12/04/20 19:00 07:00 Intake Total 360 ml 550 ml Output Total 550 ml 850 ml Balance -190 ml -300 ml Intake Oral 360 ml 550 ml Output Urine Total 550 ml 850 ml # Voids 3 Height (Feet): 5 Height (Inches): 7.00 Weight (Pounds): 147 Objective PHYSICAL EXAMINATION: GENERAL: Alert, awake, and oriented. LUNGS: Decreased breath sounds bilaterally. HEART: S1 and S2 regular. ABDOMEN: Soft and nontender. EXTREMITIES: No cyanosis. No clubbing. NEURO: No changes. Assessment/Plan Assessment/Plan: (1) Degenerative joint disease (2) Multiple joint pain Patient to be continued on Tylenol and Neurontin increased to 300mg TID D/w Dr. Camacho and he concurred. Scott Yates Dec 04, 2020 08:21
[2020-12-04 09:28] LABS: ALANINE AMINOTRANSFERASE 14 U/L (12-78); ALBUMIN 3.1 G/DL (3.4-5.0); ALBUMIN/GLOBULIN RATIO 0.8 (1.0-2.7); ALKALINE PHOSPHATASE 85 U/L (46-116); ANION GAP 6 mmol/L (5-15); ASPARTATE AMINO TRANSFERASE 15 U/L (15-37); BILIRUBIN,TOTAL 0.3 MG/DL (0.2-1.0); BLOOD UREA NITROGEN 29 mg/dL (7-18); CALCIUM 8.9 MG/DL (8.5-10.1); CARBON DIOXIDE 32 MMOL/L (21-32); CHLORIDE 104 MMOL/L (98-107); CREATININE 0.7 MG/DL (0.55-1.30); PHOSPHORUS 3.9 MG/DL (2.5-4.9); POTASSIUM 4.2 MMOL/L (3.5-5.1); SODIUM 142 MMOL/L (136-145)
--- NOTE | 2020-12-04 09:52 | Cardiac Electrophysiology PN ---
Assessment/Plan Assessment/Plan 1. Congestive heart failure with BNP of > 7000 in this patient with ejection fraction of 65% by echocardiogram, likely due to diastolic dysfunction as well as pulmonary hypertension. Decrease Lasix to 40 mg IV daily. 2. COPD and respiratory failure, on Solu-Medrol 40 iv q 6 as well as cef triaxone. Ruled out for Covid 3. Anemia, etiology is not clear at this time, but could be anemia of chronic disease. 4. Hypertension. On Lasix DW RN Subjective Subjective Ruled out for Covid as PCR negative on 12/01/20. No CP or SOB but confused. On RA. LE duplex was negative for DVT. EF 65%. still on Lasix 40 iv bid and no more leg edema Objective Last 24 Hour Vital Signs Date Time Temp Pulse Resp B/P (MAP) Pulse Ox O2 Delivery O2 Flow Rate FiO2 12/04/20 09:00 Nasal Cannula 2.0 12/04/20 08:00 98.6 68 18 116/68 (84) 97 12/04/20 08:00 105 12/04/20 04:00 97.9 93 20 128/73 (91) 96 12/04/20 04:00 93 12/04/20 00:00 99 12/04/20 00:00 98.2 99 20 147/86 (106) 98 12/03/20 21:00 Nasal Cannula 2.0 12/03/20 20:00 97 12/03/20 20:00 99.0 91 20 141/79 (99) 98 12/03/20 16:00 98 12/03/20 16:00 97.7 97 20 135/75 (95) 96 12/03/20 12:00 97.7 106 22 144/78 (100) 95 12/03/20 12:00 96 Intake and Output 12/03/20 12/04/20 19:00 07:00 Intake Total 360 ml 550 ml Output Total 550 ml 850 ml Balance -190 ml -300 ml Intake Oral 360 ml 550 ml Output Urine Total 550 ml 850 ml # Voids 3 Laboratory Tests Test 12/04/20 08:00 Sodium Level 142 MMOL/L (136-145) Potassium Level 4.2 MMOL/L (3.5-5.1) Chloride Level 104 MMOL/L (98-107) Carbon Dioxide Level 32 MMOL/L (21-32) Anion Gap 6 mmol/L (5-15) Blood Urea Nitrogen 29 mg/dL (7-18) H Creatinine 0.7 MG/DL (0.55-1.30) Estimat Glomerular Filtration Rate > 60 mL/min (>60) Glucose Level 182 MG/DL (74-106) H Calcium Level 8.9 MG/DL (8.5-10.1) Phosphorus Level 3.9 MG/DL (2.5-4.9) Magnesium Level 2.2 MG/DL (1.8-2.4) Total Bilirubin 0.3 MG/DL (0.2-1.0) Aspartate Amino Transf (AST/SGOT) 15 U/L (15-37) Alanine Aminotransferase (ALT/SGPT) 14 U/L (12-78) Alkaline Phosphatase 85 U/L (46-116) C-Reactive Protein, Quantitative < 0.4 mg/dL (0.00-0.90) Pro-B-Type Natriuretic Peptide 6446 pg/mL (0-125) H Total Protein 7.1 G/DL (6.4-8.2) Albumin 3.1 G/DL (3.4-5.0) L Globulin 4.0 g/dL Albumin/Globulin Ratio 0.8 (1.0-2.7) L Objective HEAD AND NECK: No JVD. LUNGS: Clear. CARDIOVASCULAR: Regular S1 and S2 with no gallop or murmur. ABDOMEN: Soft. EXTREMITIES: No pitting edema. Christian Mendoza MD Dec 04, 2020 09:52
--- NOTE | 2020-12-04 11:46 | Pulmonology Progress Note ---
Subjective ROS Limited/Unobtainable: No Constitutional: Reports: no symptoms HEENT: Repors: no symptoms Respiratory: Reports: no symptoms Cardiovascular: Reports: no symptoms Gastrointestinal/Abdominal: Reports: no symptoms Allergies: Coded Allergies: CODEINE (Verified Allergy, Unknown, 12/01/20) Objective Last 24 Hour Vital Signs Date Time Temp Pulse Resp B/P (MAP) Pulse Ox O2 Delivery O2 Flow Rate FiO2 12/04/20 09:00 Nasal Cannula 2.0 12/04/20 08:00 98.6 68 18 116/68 (84) 97 12/04/20 08:00 105 12/04/20 04:00 97.9 93 20 128/73 (91) 96 12/04/20 04:00 93 12/04/20 00:00 99 12/04/20 00:00 98.2 99 20 147/86 (106) 98 12/03/20 21:00 Nasal Cannula 2.0 12/03/20 20:00 97 12/03/20 20:00 99.0 91 20 141/79 (99) 98 12/03/20 16:00 98 12/03/20 16:00 97.7 97 20 135/75 (95) 96 12/03/20 12:00 97.7 106 22 144/78 (100) 95 12/03/20 12:00 96 Intake and Output 12/03/20 12/04/20 19:00 07:00 Intake Total 360 ml 550 ml Output Total 550 ml 850 ml Balance -190 ml -300 ml Intake Oral 360 ml 550 ml Output Urine Total 550 ml 850 ml # Voids 3 General Appearance: no acute distress HEENT: atraumatic Respiratory: decreased breath sounds Cardiovascular: tachycardia Abdomen: soft, non tender Laboratory Tests 12/04/20 08:00: Sodium Level 142, Potassium Level 4.2, Chloride Level 104, Carbon Dioxide Level 32, Anion Gap 6, Blood Urea Nitrogen 29H, Creatinine 0.7, Estimat Glomerular Filtration Rate > 60, Glucose Level 182H, Calcium Level 8.9, Phosphorus Level 3.9, Magnesium Level 2.2, Total Bilirubin 0.3, Aspartate Amino Transf (AST/SGOT) 15, Alanine Aminotransferase (ALT/SGPT) 14, Alkaline Phosphatase 85, C-Reactive Protein, Quantitative < 0.4, Pro-B-Type Natriuretic Peptide 6446H, Total Protein 7.1, Albumin 3.1L, Globulin 4.0, Albumin/Globulin Ratio 0.8L Current Medications Medications (Trade) Dose Ordered Sig/Sha Route PRN Reason Start Time Stop Time Status Last Admin Dose Admin Acetaminophen (Tylenol) 500 mg Q4H PRN ORAL For Pain 12/02/20 08:45 01/01/21 08:44 Acetaminophen (Tylenol) 500 mg Q4H PRN ORAL Temp >100.5 12/02/20 08:45 01/01/21 08:44 Albuterol/ Ipratropium (Combivent Respimat) 1 puff Q6HRT INH 12/01/20 19:00 12/31/20 18:59 12/04/20 07:00 Ceftriaxone Sodium 1 gm/ Dextrose 55 ml @ 110 mls/hr Q24H IVPB 12/01/20 12:00 12/08/20 11:59 12/03/20 12:30 Enoxaparin Sodium (Lovenox) 40 mg DAILY SUBQ 12/02/20 09:00 03/02/21 08:59 12/04/20 08:04 Furosemide (Lasix) 40 mg DAILY IV 12/05/20 09:00 12/31/20 11:59 Gabapentin (Neurontin) 300 mg THREE TIMES A DAY ORAL 12/04/20 13:00 01/01/21 12:59 Iron Sucrose 100 mg/Sodium Chloride 60 ml @ 240 mls/hr BEDTIME IVPB 12/02/20 21:00 12/06/20 21:14 12/03/20 21:23 Methylprednisolone Sodium Succinate (Solu-MEDROL) 40 mg EVERY 6 HOURS IVP 12/01/20 12:00 03/01/21 11:59 12/04/20 05:39 Assessment/Plan Assessment/Plan 1. Anemia -Per primary MD -On IV iron 2. Elevated inflammatory markers -We will add Lovenox for DVT prophylaxis - Duplex ultrasound of legs negative for DVT 3. CHF - Elevated BNP - Cardio following -2D echo EF 65% -Lasix decreased to 40 mg QD 4. Pulmonary congestion, likely 2/2 to CHF -Provide supplemental oxygen as needed 5. COVID-19 PCR negative -Off isolation 6. Hypoxic respiratory distress -Currently saturating at 95% on 2 L NC; wean as tolerated -We will continue DuoNeb -We will add Solu-Medrol 7. Smoker - Smoking cessation education 8. Infiltrates - Dw ID - We will start him on Rocephin The care for this patient was discussed with my supervising physician. Time spent for this case was approximately 31 minutes. Luis Torres Dec 04, 2020 11:46
[2020-12-04 12:00] VITALS: BP_SYST 116; BP_SYST 123; BP_DIAS 68; BP_DIAS 77
[2020-12-04] MEDS: cefTRIAXone 1 GM in D5W 55 ML IVPB SCH (12:11)
--- NOTE | 2020-12-04 13:26 | Infectious Diseases Prog Note ---
Assessment/Plan Assessment/Plan A: 1. Pneumonia. COVID19 test negative on 11/26 & 12/01 2. Congestive heart failure, mild diastolic 3. Hypertension. 4. COPD. 5. Anemia PLAN: 1. Continue ceftriaxone. 2. Negative cultures so far Subjective ROS Limited/Unobtainable: Yes Allergies: Coded Allergies: CODEINE (Verified Allergy, Unknown, 12/01/20) Objective Last 24 Hour Vital Signs Date Time Temp Pulse Resp B/P (MAP) Pulse Ox O2 Delivery O2 Flow Rate FiO2 12/04/20 12:00 98.9 95 17 123/77 (92) 96 12/04/20 12:00 107 12/04/20 09:00 Nasal Cannula 2.0 12/04/20 08:00 98.6 68 18 116/68 (84) 97 12/04/20 08:00 105 12/04/20 04:00 97.9 93 20 128/73 (91) 96 12/04/20 04:00 93 12/04/20 00:00 99 12/04/20 00:00 98.2 99 20 147/86 (106) 98 12/03/20 21:00 Nasal Cannula 2.0 12/03/20 20:00 97 12/03/20 20:00 99.0 91 20 141/79 (99) 98 12/03/20 16:00 98 12/03/20 16:00 97.7 97 20 135/75 (95) 96 Height (Feet): 5 Height (Inches): 7.00 Weight (Pounds): 147 General Appearance: no acute distress HEENT: mucous membranes moist Respiratory/Chest: lungs clear Cardiovascular: normal rate Abdomen: soft, non tender, other - obese Extremities: no edema Neurologic/Psychiatric: other - sleeping Laboratory Tests Test 12/04/20 08:00 Sodium Level 142 MMOL/L (136-145) Potassium Level 4.2 MMOL/L (3.5-5.1) Chloride Level 104 MMOL/L (98-107) Carbon Dioxide Level 32 MMOL/L (21-32) Anion Gap 6 mmol/L (5-15) Blood Urea Nitrogen 29 mg/dL (7-18) H Creatinine 0.7 MG/DL (0.55-1.30) Estimat Glomerular Filtration Rate > 60 mL/min (>60) Glucose Level 182 MG/DL (74-106) H Calcium Level 8.9 MG/DL (8.5-10.1) Phosphorus Level 3.9 MG/DL (2.5-4.9) Magnesium Level 2.2 MG/DL (1.8-2.4) Total Bilirubin 0.3 MG/DL (0.2-1.0) Aspartate Amino Transf (AST/SGOT) 15 U/L (15-37) Alanine Aminotransferase (ALT/SGPT) 14 U/L (12-78) Alkaline Phosphatase 85 U/L (46-116) C-Reactive Protein, Quantitative < 0.4 mg/dL (0.00-0.90) Pro-B-Type Natriuretic Peptide 6446 pg/mL (0-125) H Total Protein 7.1 G/DL (6.4-8.2) Albumin 3.1 G/DL (3.4-5.0) L Globulin 4.0 g/dL Albumin/Globulin Ratio 0.8 (1.0-2.7) L Current Medications Medications (Trade) Dose Ordered Sig/Sha Route PRN Reason Start Time Stop Time Status Last Admin Dose Admin Acetaminophen (Tylenol) 500 mg Q4H PRN ORAL For Pain 12/02/20 08:45 01/01/21 08:44 Acetaminophen (Tylenol) 500 mg Q4H PRN ORAL Temp >100.5 12/02/20 08:45 01/01/21 08:44 Albuterol/ Ipratropium (Combivent Respimat) 1 puff Q6HRT INH 12/01/20 19:00 12/31/20 18:59 12/04/20 12:11 Ceftriaxone Sodium 1 gm/ Dextrose 55 ml @ 110 mls/hr Q24H IVPB 12/01/20 12:00 12/08/20 11:59 12/04/20 12:11 Enoxaparin Sodium (Lovenox) 40 mg DAILY SUBQ 12/02/20 09:00 03/02/21 08:59 12/04/20 08:04 Furosemide (Lasix) 40 mg DAILY IV 12/05/20 09:00 12/31/20 11:59 Gabapentin (Neurontin) 300 mg THREE TIMES A DAY ORAL 12/04/20 13:00 01/01/21 12:59 12/04/20 12:11 Iron Sucrose 100 mg/Sodium Chloride 60 ml @ 240 mls/hr BEDTIME IVPB 12/02/20 21:00 12/06/20 21:14 12/03/20 21:23 Methylprednisolone Sodium Succinate (Solu-MEDROL) 40 mg EVERY 6 HOURS IVP 12/01/20 12:00 03/01/21 11:59 12/04/20 12:10 Lucian Espinoaz MD Dec 04, 2020 13:26
--- NOTE | 2020-12-04 13:54 | Nephrology Progress Note ---
Assessment/Plan Problem List: (1) CHF exacerbation (2) Anemia (3) HCAP (healthcare-associated pneumonia) (4) Acute respiratory failure with hypoxia Assessment Iron deficiency anemia Respiratory failure Exacerbation of CHF Chronic pain Hypoalbuminemia Plan December 04: CHEM panel reviewed. Medication list reviewed. Remains stable. Continue per consultants December 03: Stable from renal standpoint of view. No labs drawn today. We will continue to monitor electrolytes and renal parameters. IV iron Stool OB Demise cardiac and pulmonary status Per orders Subjective ROS Limited/Unobtainable: No Constitutional: Reports: malaise Objective Objective Last 24 Hour Vital Signs Date Time Temp Pulse Resp B/P (MAP) Pulse Ox O2 Delivery O2 Flow Rate FiO2 12/04/20 12:00 98.9 95 17 123/77 (92) 96 12/04/20 12:00 107 12/04/20 09:00 Nasal Cannula 2.0 12/04/20 08:00 98.6 68 18 116/68 (84) 97 12/04/20 08:00 105 12/04/20 04:00 97.9 93 20 128/73 (91) 96 12/04/20 04:00 93 12/04/20 00:00 99 12/04/20 00:00 98.2 99 20 147/86 (106) 98 12/03/20 21:00 Nasal Cannula 2.0 12/03/20 20:00 97 12/03/20 20:00 99.0 91 20 141/79 (99) 98 12/03/20 16:00 98 12/03/20 16:00 97.7 97 20 135/75 (95) 96 Intake and Output 12/03/20 12/04/20 19:00 07:00 Intake Total 360 ml 550 ml Output Total 550 ml 850 ml Balance -190 ml -300 ml Intake Oral 360 ml 550 ml Output Urine Total 550 ml 850 ml # Voids 3 Current Medications Medications (Trade) Dose Ordered Sig/Sha Route PRN Reason Start Time Stop Time Status Last Admin Dose Admin Acetaminophen (Tylenol) 500 mg Q4H PRN ORAL For Pain 12/02/20 08:45 01/01/21 08:44 Acetaminophen (Tylenol) 500 mg Q4H PRN ORAL Temp >100.5 12/02/20 08:45 01/01/21 08:44 Albuterol/ Ipratropium (Combivent Respimat) 1 puff Q6HRT INH 12/01/20 19:00 12/31/20 18:59 12/04/20 12:11 Ceftriaxone Sodium 1 gm/ Dextrose 55 ml @ 110 mls/hr Q24H IVPB 12/01/20 12:00 12/08/20 11:59 12/04/20 12:11 Enoxaparin Sodium (Lovenox) 40 mg DAILY SUBQ 12/02/20 09:00 03/02/21 08:59 12/04/20 08:04 Furosemide (Lasix) 40 mg DAILY IV 12/05/20 09:00 12/31/20 11:59 Gabapentin (Neurontin) 300 mg THREE TIMES A DAY ORAL 12/04/20 13:00 01/01/21 12:59 12/04/20 12:11 Iron Sucrose 100 mg/Sodium Chloride 60 ml @ 240 mls/hr BEDTIME IVPB 12/02/20 21:00 12/06/20 21:14 12/03/20 21:23 Methylprednisolone Sodium Succinate (Solu-MEDROL) 40 mg EVERY 6 HOURS IVP 12/01/20 12:00 03/01/21 11:59 12/04/20 12:10 Laboratory Tests 12/04/20 08:00: Sodium Level 142, Potassium Level 4.2, Chloride Level 104, Carbon Dioxide Level 32, Anion Gap 6, Blood Urea Nitrogen 29H, Creatinine 0.7, Estimat Glomerular Filtration Rate > 60, Glucose Level 182H, Calcium Level 8.9, Phosphorus Level 3 .9, Magnesium Level 2.2, Total Bilirubin 0.3, Aspartate Amino Transf (AST/SGOT) 15, Alanine Aminotransferase (ALT/SGPT) 14, Alkaline Phosphatase 85, C-Reactive Protein, Quantitative < 0.4, Pro-B-Type Natriuretic Peptide 6446H, Total Protein 7.1, Albumin 3.1L, Globulin 4.0, Albumin/Globulin Ratio 0.8L Height (Feet): 5 Height (Inches): 7.00 Weight (Pounds): 147 General Appearance: no apparent distress Cardiovascular: tachycardia Respiratory/Chest: decreased breath sounds Abdomen: distended Hong Wall MD Dec 04, 2020 13:54
[2020-12-04 16:00] VITALS: BP 131/73
[2020-12-04 20:00] VITALS: BP 128/72
[2020-12-04] MEDS: Iron Sucrose 100 MG in NS 55 ML IVPB SCH (20:34)
--- NOTE | 2020-12-04 20:44 | General Progress Note ---
Subjective ROS Limited/Unobtainable: Yes Allergies: Coded Allergies: CODEINE (Verified Allergy, Unknown, 12/01/20) Objective Last 24 Hour Vital Signs Date Time Temp Pulse Resp B/P (MAP) Pulse Ox O2 Delivery O2 Flow Rate FiO2 12/04/20 16:00 105 12/04/20 16:00 98.8 105 19 131/73 (92) 91 12/04/20 12:00 98.9 95 17 123/77 (92) 96 12/04/20 12:00 107 12/04/20 09:00 Nasal Cannula 2.0 12/04/20 08:00 98.6 68 18 116/68 (84) 97 12/04/20 08:00 105 12/04/20 04:00 97.9 93 20 128/73 (91) 96 12/04/20 04:00 93 12/04/20 00:00 99 12/04/20 00:00 98.2 99 20 147/86 (106) 98 12/03/20 21:00 Nasal Cannula 2.0 Intake and Output 12/03/20 12/04/20 19:00 07:00 Intake Total 360 ml 550 ml Output Total 550 ml 850 ml Balance -190 ml -300 ml Intake Oral 360 ml 550 ml Output Urine Total 550 ml 850 ml # Voids 3 Laboratory Tests 12/04/20 08:00: Sodium Level 142, Potassium Level 4.2, Chloride Level 104, Carbon Dioxide Level 32, Anion Gap 6, Blood Urea Nitrogen 29H, Creatinine 0.7, Estimat Glomerular Filtration Rate > 60, Glucose Level 182H, Calcium Level 8.9, Phosphorus Level 3.9, Magnesium Level 2.2, Total Bilirubin 0.3, Aspartate Amino Transf (AST/SGOT) 15, Alanine Aminotransferase (ALT/SGPT) 14, Alkaline Phosphatase 85, C-Reactive Protein, Quantitative < 0.4, Pro-B-Type Natriuretic Peptide 6446H, Total Protein 7.1, Albumin 3.1L, Globulin 4.0, Albumin/Globulin Ratio 0.8L Height (Feet): 5 Height (Inches): 7.00 Weight (Pounds): 147 Assessment/Plan Problem List: (1) HCAP (healthcare-associated pneumonia) ICD Codes: J18.9 - Pneumonia, unspecified organism SNOMED: 145305993, 393024000 (2) Anemia ICD Codes: D64.9 - Anemia, unspecified SNOMED: 754856677, 471522736 Qualifiers: Qualified Codes: D64.9 - Anemia, unspecified (3) Chronic pain ICD Codes: G89.29 - Other chronic pain SNOMED: 53842771, 103423478 Qualifiers: Qualified Codes: G89.4 - Chronic pain syndrome (4) CHF exacerbation ICD Codes: I50.9 - Heart failure, unspecified SNOMED: 973362949, [id number] Qualifiers: Qualified Codes: I50.9 - Heart failure, unspecified (5) Acute respiratory failure with hypoxia ICD Codes: J96.01 - Acute respiratory failure with hypoxia SNOMED: 75358918, 423647425 Status: progressing Assessment/Plan: chf exacerbation s/p hyoxic sob cough on oxygen weak no wheezing La Pal MD Dec 04, 2020 20:44
[2020-12-05] VITALS: BP 134/75
[2020-12-05] MEDS: Solu-MEDROL 40mg Inj IVP SCH ×5 (00:10→23:33)
[2020-12-05 04:00] VITALS: BP 140/74
[2020-12-05 08:00] VITALS: BP 146/73
--- NOTE | 2020-12-05 08:09 | General Progress Note ---
Subjective Date patient seen: Dec 05, 2020 Time patient seen: 07:15 - am Allergies: Coded Allergies: CODEINE (Verified Allergy, Unknown, 12/01/20) Subjective HISTORY OF PRESENT ILLNESS: The patient is a 60-year-old male who is being seen on the telemetry floor of [facility]. Patient laying in bed and showing no signs of pain or distress. No new complaints at this time. REVIEW OF SYSTEMS: Denies rash, fever, chills, sweating, dizziness, drowsiness, blurred vision, sore throat, or change in hearing or weight. No nausea, vomiting, diarrhea, or blood in the stool or urine. No dysuria. Objective Last 24 Hour Vital Signs Date Time Temp Pulse Resp B/P (MAP) Pulse Ox O2 Delivery O2 Flow Rate FiO2 12/05/20 04:00 97.7 91 18 140/74 (96) 90 12/05/20 04:00 91 12/05/20 00:30 94 12/05/20 00:00 97.9 105 18 134/75 (94) 90 12/05/20 00:00 104 12/04/20 21:00 Nasal Cannula 2.0 12/04/20 20:00 99 12/04/20 20:00 97.5 99 18 128/72 (90) 96 12/04/20 16:00 105 12/04/20 16:00 98.8 105 19 131/73 (92) 91 12/04/20 12:00 98.9 95 17 123/77 (92) 96 12/04/20 12:00 107 12/04/20 09:00 Nasal Cannula 2.0 Intake and Output 12/04/20 12/05/20 19:00 07:00 Intake Total 700 ml 400 ml Output Total 900 ml 730 ml Balance -200 ml -330 ml Intake Oral 700 ml 400 ml Output Urine Total 900 ml 730 ml # Voids 5 4 Height (Feet): 5 Height (Inches): 7.00 Weight (Pounds): 147 Objective PHYSICAL EXAMINATION: GENERAL: Alert, awake, and oriented. LUNGS: Decreased breath sounds bilaterally. HEART: S1 and S2 regular. ABDOMEN: Soft and nontender. EXTREMITIES: No cyanosis. No clubbing. NEURO: No changes. Assessment/Plan Assessment/Plan: (1) Degenerative joint disease (2) Multiple joint pain Patient to be continued on Tylenol and Neurontin D/w Dr. Camacho and he concurred. Scott Yates Dec 05, 2020 08:09
[2020-12-05] MEDS: Enoxaparin 40mg Inj SUBQ SCH (08:30)
--- NOTE | 2020-12-05 11:32 | Infectious Diseases Prog Note ---
Assessment/Plan Assessment/Plan A: 1. Pneumonia. COVID19 test negative on 11/26 & 12/01 2. Congestive heart failure, mild diastolic 3. Hypertension. 4. COPD. 5. Anemia PLAN: 1. Continue ceftriaxone. 2. Negative cultures so far Subjective ROS Limited/Unobtainable: Yes Allergies: Coded Allergies: CODEINE (Verified Allergy, Unknown, 12/01/20) Objective Last 24 Hour Vital Signs Date Time Temp Pulse Resp B/P (MAP) Pulse Ox O2 Delivery O2 Flow Rate FiO2 12/05/20 08:54 Nasal Cannula 2.0 12/05/20 08:00 102 12/05/20 08:00 98.7 101 19 146/73 (97) 97 12/05/20 04:00 97.7 91 18 140/74 (96) 90 12/05/20 04:00 91 12/05/20 00:30 94 12/05/20 00:00 97.9 105 18 134/75 (94) 90 12/05/20 00:00 104 12/04/20 21:00 Nasal Cannula 2.0 12/04/20 20:00 99 12/04/20 20:00 97.5 99 18 128/72 (90) 96 12/04/20 16:00 105 12/04/20 16:00 98.8 105 19 131/73 (92) 91 12/04/20 12:00 98.9 95 17 123/77 (92) 96 12/04/20 12:00 107 Height (Feet): 5 Height (Inches): 7.00 Weight (Pounds): 147 HEENT: mucous membranes moist Respiratory/Chest: lungs clear, other - O2 by nasal cannula Cardiovascular: tachycardia Abdomen: soft, non tender, other - obese Extremities: no edema Neurologic/Psychiatric: other - sleeping Microbiology Date/Time Source Procedure Growth Status 12/03/20 19:30 Sputum Gram Stain - Final Resulted 12/03/20 19:30 Sputum Sputum Culture - Preliminary NORMAL UPPER RESPIRATORY DARREL AT 24 ... Resulted Current Medications Medications (Trade) Dose Ordered Sig/Sha Route PRN Reason Start Time Stop Time Status Last Admin Dose Admin Acetaminophen (Tylenol) 500 mg Q4H PRN ORAL For Pain 12/02/20 08:45 01/01/21 08:44 Acetaminophen (Tylenol) 500 mg Q4H PRN ORAL Temp >100.5 12/02/20 08:45 01/01/21 08:44 Albuterol/ Ipratropium (Combivent Respimat) 1 puff Q6HRT INH 12/01/20 19:00 12/31/20 18:59 12/05/20 07:12 Ceftriaxone Sodium 1 gm/ Dextrose 55 ml @ 110 mls/hr Q24H IVPB 12/01/20 12:00 12/08/20 11:59 12/04/20 12:11 Enoxaparin Sodium (Lovenox) 40 mg DAILY SUBQ 12/02/20 09:00 03/02/21 08:59 12/05/20 08:30 Furosemide (Lasix) 40 mg DAILY IV 12/05/20 09:00 12/31/20 11:59 12/05/20 08:27 Gabapentin (Neurontin) 300 mg THREE TIMES A DAY ORAL 12/04/20 13:00 01/01/21 12:59 12/05/20 08:27 Iron Sucrose 100 mg/Sodium Chloride 60 ml @ 240 mls/hr BEDTIME IVPB 12/02/20 21:00 12/06/20 21:14 12/04/20 20:34 Methylprednisolone Sodium Succinate (Solu-MEDROL) 40 mg EVERY 6 HOURS IVP 12/01/20 12:00 03/01/21 11:59 12/05/20 05:35 Lucian Espinoza MD Dec 05, 2020 11:32
[2020-12-05] MEDS: cefTRIAXone 1 GM in D5W 55 ML IVPB SCH (11:41)
[2020-12-05 11:49] VITALS: BP 141/67
--- NOTE | 2020-12-05 11:50 | Nephrology Progress Note ---
Assessment/Plan Problem List: (1) CHF exacerbation (2) Anemia (3) HCAP (healthcare-associated pneumonia) (4) Acute respiratory failure with hypoxia Assessment Iron deficiency anemia Respiratory failure Exacerbation of CHF Chronic pain Hypoalbuminemia Plan December 05: No labs drawn today. Medication list reviewed. Patient clinically stable. Will check lab tomorrow. December 04: CHEM panel reviewed. Medication list reviewed. Remains stable. Continue per consultants December 03: Stable from renal standpoint of view. No labs drawn today. We will continue to monitor electrolytes and renal parameters. IV iron Stool OB Demise cardiac and pulmonary status Per orders Subjective ROS Limited/Unobtainable: No Constitutional: Reports: malaise, weakness Objective Objective Last 24 Hour Vital Signs Date Time Temp Pulse Resp B/P (MAP) Pulse Ox O2 Delivery O2 Flow Rate FiO2 12/05/20 08:54 Nasal Cannula 2.0 12/05/20 08:00 102 12/05/20 08:00 98.7 101 19 146/73 (97) 97 12/05/20 04:00 97.7 91 18 140/74 (96) 90 12/05/20 04:00 91 12/05/20 00:30 94 12/05/20 00:00 97.9 105 18 134/75 (94) 90 12/05/20 00:00 104 12/04/20 21:00 Nasal Cannula 2.0 12/04/20 20:00 99 12/04/20 20:00 97.5 99 18 128/72 (90) 96 12/04/20 16:00 105 12/04/20 16:00 98.8 105 19 131/73 (92) 91 12/04/20 12:00 98.9 95 17 123/77 (92) 96 12/04/20 12:00 107 Intake and Output 12/04/20 12/05/20 19:00 07:00 Intake Total 700 ml 400 ml Output Total 900 ml 730 ml Balance -200 ml -330 ml Intake Oral 700 ml 400 ml Output Urine Total 900 ml 730 ml # Voids 5 4 No chemistry panel done today Height (Feet): 5 Height (Inches): 7.00 Weight (Pounds): 147 General Appearance: no apparent distress Cardiovascular: tachycardia Respiratory/Chest: decreased breath sounds Abdomen: distended Hong Wall MD Dec 05, 2020 11:50
--- NOTE | 2020-12-05 12:01 | Pulmonology Progress Note ---
Subjective ROS Limited/Unobtainable: No Interval Events: None major reported per nursing Constitutional: Reports: no symptoms HEENT: Repors: no symptoms Respiratory: Reports: no symptoms Cardiovascular: Reports: no symptoms Gastrointestinal/Abdominal: Reports: no symptoms Allergies: Coded Allergies: CODEINE (Verified Allergy, Unknown, 12/01/20) Objective Last 24 Hour Vital Signs Date Time Temp Pulse Resp B/P (MAP) Pulse Ox O2 Delivery O2 Flow Rate FiO2 12/05/20 11:49 96.7 80 19 141/67 (91) 96 12/05/20 08:54 Nasal Cannula 2.0 12/05/20 08:00 102 12/05/20 08:00 98.7 101 19 146/73 (97) 97 12/05/20 04:00 97.7 91 18 140/74 (96) 90 12/05/20 04:00 91 12/05/20 00:30 94 12/05/20 00:00 97.9 105 18 134/75 (94) 90 12/05/20 00:00 104 12/04/20 21:00 Nasal Cannula 2.0 12/04/20 20:00 99 12/04/20 20:00 97.5 99 18 128/72 (90) 96 12/04/20 16:00 105 12/04/20 16:00 98.8 105 19 131/73 (92) 91 Intake and Output 12/04/20 12/05/20 19:00 07:00 Intake Total 700 ml 400 ml Output Total 900 ml 730 ml Balance -200 ml -330 ml Intake Oral 700 ml 400 ml Output Urine Total 900 ml 730 ml # Voids 5 4 General Appearance: no acute distress HEENT: atraumatic Respiratory: decreased breath sounds Cardiovascular: tachycardia Abdomen: soft, non tender Microbiology Date/Time Source Procedure Growth Status 12/03/20 19:30 Sputum Gram Stain - Final Resulted 12/03/20 19:30 Sputum Sputum Culture - Preliminary NORMAL UPPER RESPIRATORY DARREL AT 24 ... Resulted Current Medications Medications (Trade) Dose Ordered Sig/Sha Route PRN Reason Start Time Stop Time Status Last Admin Dose Admin Acetaminophen (Tylenol) 500 mg Q4H PRN ORAL For Pain 12/02/20 08:45 01/01/21 08:44 Acetaminophen (Tylenol) 500 mg Q4H PRN ORAL Temp >100.5 12/02/20 08:45 01/01/21 08:44 Albuterol/ Ipratropium (Combivent Respimat) 1 puff Q6HRT INH 12/01/20 19:00 12/31/20 18:59 12/05/20 07:12 Ceftriaxone Sodium 1 gm/ Dextrose 55 ml @ 110 mls/hr Q24H IVPB 12/01/20 12:00 12/08/20 11:59 12/05/20 11:41 Enoxaparin Sodium (Lovenox) 40 mg DAILY SUBQ 12/02/20 09:00 03/02/21 08:59 12/05/20 08:30 Furosemide (Lasix) 40 mg DAILY IV 12/05/20 09:00 12/31/20 11:59 12/05/20 08:27 Gabapentin (Neurontin) 300 mg THREE TIMES A DAY ORAL 12/04/20 13:00 01/01/21 12:59 12/05/20 08:27 Iron Sucrose 100 mg/Sodium Chloride 60 ml @ 240 mls/hr BEDTIME IVPB 12/02/20 21:00 12/06/20 21:14 12/04/20 20:34 Methylprednisolone Sodium Succinate (Solu-MEDROL) 40 mg EVERY 6 HOURS IVP 12/01/20 12:00 03/01/21 11:59 12/05/20 11:39 Assessment/Plan Assessment/Plan 1. Anemia -Per primary MD -On IV iron 2. Elevated inflammatory markers -We will add Lovenox for DVT prophylaxis - Duplex ultrasound of legs negative for DVT 3. CHF - Elevated BNP - Cardio following -2D echo EF 65% -Lasix decreased to 40 mg QD 4. Pulmonary congestion, likely 2/2 to CHF -Provide supplemental oxygen as needed 5. COVID-19 PCR negative -Off isolation 6. Hypoxic respiratory distress -Currently saturating at 95% on 2 L NC; wean as tolerated -We will continue DuoNeb -We will add Solu-Medrol 7. Smoker - Smoking cessation education 8. Infiltrates - Dw ID - We will start him on Rocephin The care for this patient was discussed with my supervising physician. Time spent for this case was approximately 31 minutes. Luis Torres Dec 05, 2020 12:01
--- NOTE | 2020-12-05 13:00 | General Progress Note ---
Subjective ROS Limited/Unobtainable: Yes Allergies: Coded Allergies: CODEINE (Verified Allergy, Unknown, 12/01/20) Objective Last 24 Hour Vital Signs Date Time Temp Pulse Resp B/P (MAP) Pulse Ox O2 Delivery O2 Flow Rate FiO2 12/05/20 12:00 99 12/05/20 11:49 96.7 80 19 141/67 (91) 96 12/05/20 08:54 Nasal Cannula 2.0 12/05/20 08:00 102 12/05/20 08:00 98.7 101 19 146/73 (97) 97 12/05/20 04:00 97.7 91 18 140/74 (96) 90 12/05/20 04:00 91 12/05/20 00:30 94 12/05/20 00:00 97.9 105 18 134/75 (94) 90 12/05/20 00:00 104 12/04/20 21:00 Nasal Cannula 2.0 12/04/20 20:00 99 12/04/20 20:00 97.5 99 18 128/72 (90) 96 12/04/20 16:00 105 12/04/20 16:00 98.8 105 19 131/73 (92) 91 Intake and Output 12/04/20 12/05/20 19:00 07:00 Intake Total 700 ml 400 ml Output Total 900 ml 730 ml Balance -200 ml -330 ml Intake Oral 700 ml 400 ml Output Urine Total 900 ml 730 ml # Voids 5 4 Height (Feet): 5 Height (Inches): 7.00 Weight (Pounds): 147 Assessment/Plan Problem List: (1) HCAP (healthcare-associated pneumonia) ICD Codes: J18.9 - Pneumonia, unspecified organism SNOMED: 083941664, [id number] (2) Anemia ICD Codes: D64.9 - Anemia, unspecified SNOMED: 395971305, 863051924 Qualifiers: Qualified Codes: D64.9 - Anemia, unspecified (3) Chronic pain ICD Codes: G89.29 - Other chronic pain SNOMED: 34710919, 817598731 Qualifiers: Qualified Codes: G89.4 - Chronic pain syndrome (4) CHF exacerbation ICD Codes: I50.9 - Heart failure, unspecified SNOMED: 337608656, [id number] Qualifiers: Qualified Codes: I50.9 - Heart failure, unspecified (5) Acute respiratory failure with hypoxia ICD Codes: J96.01 - Acute respiratory failure with hypoxia SNOMED: 31336743, 573965743 Assessment/Plan: chf exacerbation s/p hyoxic pna respiratory insuff afebrile no wheezing reviewed chart and labs [place] MD Dec 05, 2020 13:00
--- NOTE | 2020-12-05 13:23 | Cardiac Electrophysiology PN ---
Assessment/Plan Assessment/Plan 1. Congestive heart failure with BNP of > 7000 in this patient with ejection fraction of 65% by echocardiogram, likely due to diastolic dysfunction as well as pulmonary hypertension. On Lasix 40 mg IV daily. 2. COPD and respiratory failure, on Solu-Medrol 40 iv q 6 as well as ceftriaxone . 3. Anemia, etiology is not clear at this time, but could be anemia of chronic disease. 4. Hypertension. On Lasix DW RN Subjective Subjective Ruled out for Covid as PCR negative on 12/01/20. No CP or SOB but confused. On RA. LE duplex was negative for DVT. EF 65%. Has bilateral hand and feet numbness/pain Objective Last 24 Hour Vital Signs Date Time Temp Pulse Resp B/P (MAP) Pulse Ox O2 Delivery O2 Flow Rate FiO2 12/05/20 12:00 99 12/05/20 11:49 96.7 80 19 141/67 (91) 96 12/05/20 08:54 Nasal Cannula 2.0 12/05/20 08:00 102 12/05/20 08:00 98.7 101 19 146/73 (97) 97 12/05/20 04:00 97.7 91 18 140/74 (96) 90 12/05/20 04:00 91 12/05/20 00:30 94 12/05/20 00:00 97.9 105 18 134/75 (94) 90 12/05/20 00:00 104 12/04/20 21:00 Nasal Cannula 2.0 12/04/20 20:00 99 12/04/20 20:00 97.5 99 18 128/72 (90) 96 12/04/20 16:00 105 12/04/20 16:00 98.8 105 19 131/73 (92) 91 Intake and Output 12/04/20 12/05/20 19:00 07:00 Intake Total 700 ml 400 ml Output Total 900 ml 730 ml Balance -200 ml -330 ml Intake Oral 700 ml 400 ml Output Urine Total 900 ml 730 ml # Voids 5 4 Microbiology Date/Time Source Procedure Growth Status 12/03/20 19:30 Sputum Gram Stain - Final Resulted 12/03/20 19:30 Sputum Sputum Culture - Preliminary NORMAL UPPER RESPIRATORY DARREL AT 24 ... Resulted Objective HEAD AND NECK: No JVD. LUNGS: Clear. CARDIOVASCULAR: Regular S1 and S2 with no gallop or murmur. ABDOMEN: Soft. EXTREMITIES: No pitting edema. Christian Mendoza MD Dec 05, 2020 13:23
[2020-12-05 16:00] VITALS: BP 140/76
[2020-12-05 20:00] VITALS: BP 134/78
[2020-12-05] MEDS: Iron Sucrose 100 MG in NS 55 ML IVPB SCH (20:54)
[2020-12-06] VITALS: BP 134/78
[2020-12-06 04:00] VITALS: BP 151/90
[2020-12-06] MEDS: Solu-MEDROL 40mg Inj IVP SCH ×2 (05:47→20:12)
[2020-12-06 08:00] VITALS: BP 138/87
[2020-12-06] MEDS: Enoxaparin 40mg Inj SUBQ SCH (08:46)
[2020-12-06 09:32] LABS: HEMATOCRIT 34.8 % (42.0-52.0); HEMOGLOBIN 9.9 G/DL (14.2-18.0); MEAN CORPUSCULAR VOLUME 99 FL (80-99); PLATELET COUNT 229 K/UL (150-450); RED CELL DISTRIBUTION WIDTH 21.9 % (11.6-14.8); WHITE BLOOD COUNT 13.4 K/UL (4.8-10.8)
[2020-12-06 10:35] LABS: ALANINE AMINOTRANSFERASE 24 U/L (12-78); ALBUMIN/GLOBULIN RATIO 0.8 (1.0-2.7); ALKALINE PHOSPHATASE 71 U/L (46-116); ANION GAP 7 mmol/L (5-15); ASPARTATE AMINO TRANSFERASE 12 U/L (15-37); BILIRUBIN,TOTAL 0.3 MG/DL (0.2-1.0); BLOOD UREA NITROGEN 32 mg/dL (7-18); CALCIUM 8.7 MG/DL (8.5-10.1); CARBON DIOXIDE 30 MMOL/L (21-32); CHLORIDE 106 MMOL/L (98-107); CREATININE 0.8 MG/DL (0.55-1.30); PHOSPHORUS 3.7 MG/DL (2.5-4.9); POTASSIUM 4.4 MMOL/L (3.5-5.1); SODIUM 143 MMOL/L (136-145)
--- NOTE | 2020-12-06 11:07 | Pulmonology Progress Note ---
Subjective ROS Limited/Unobtainable: Yes Interval Events: None major reported per nursing Constitutional: Reports: no symptoms HEENT: Repors: no symptoms Respiratory: Reports: no symptoms Cardiovascular: Reports: no symptoms Gastrointestinal/Abdominal: Reports: no symptoms Allergies: Coded Allergies: CODEINE (Verified Allergy, Unknown, 12/01/20) Objective Last 24 Hour Vital Signs Date Time Temp Pulse Resp B/P (MAP) Pulse Ox O2 Delivery O2 Flow Rate FiO2 12/06/20 09:00 Nasal Cannula 1.0 12/06/20 08:00 104 12/06/20 08:00 97.2 101 20 138/87 (104) 97 12/06/20 04:00 97 12/06/20 04:00 97.1 88 21 151/90 (110) 97 12/06/20 00:00 98.0 96 21 134/78 (96) 99 12/06/20 00:00 96 12/05/20 21:00 Nasal Cannula 1.0 12/05/20 20:00 98.9 98 20 134/78 (96) 99 12/05/20 20:00 95 12/05/20 16:37 99 12/05/20 16:00 98.1 71 20 140/76 (97) 97 12/05/20 12:00 99 12/05/20 11:49 96.7 80 19 141/67 (91) 96 Intake and Output 12/05/20 12/06/20 19:00 07:00 Intake Total 600 ml 450 ml Balance 600 ml 450 ml Intake Oral 600 ml 450 ml # Voids 3 2 General Appearance: no acute distress HEENT: atraumatic Respiratory: decreased breath sounds Cardiovascular: tachycardia Abdomen: soft, non tender Microbiology Date/Time Source Procedure Growth Status 12/03/20 19:30 Sputum Gram Stain - Final Complete 12/03/20 19:30 Sputum Sputum Culture - Final NORMAL UPPER RESPIRATORY DARREL PRESENT Complete Laboratory Tests 12/06/20 08:55: White Blood Count 13.4H, Red Blood Count 3.50L, Hemoglobin 9.9L, Hematocrit 34.8L, Mean Corpuscular Volume 99, Mean Corpuscular Hemoglobin 28.4, Mean Corpuscular Hemoglobin Concent 28.6L, Red Cell Distribution Width 21.9H, Platelet Count 229, Mean Platelet Volume 6.7, Neutrophils (%) (Auto) , Lymphocytes (%) (Auto) , Monocytes (%) (Auto) , Eosinophils (%) (Auto) , Basophils (%) (Auto) , Differential Total Cells Counted 100, Neutrophils % (Manual) 91H, Lymphocytes % (Manual) 7L, Monocytes % (Manual) 2, Eosinophils % (Manual) 0, Basophils % (Manual) 0, Band Neutrophils 0, Platelet Estimate Adequ ate, Platelet Morphology Normal, Polychromasia 1+, Hypochromasia 1+, Anisocytosis 3+, Sodium Level 143, Potassium Level 4.4, Chloride Level 106, Carbon Dioxide Level 30, Anion Gap 7, Blood Urea Nitrogen 32H, Creatinine 0.8, Estimat Glomerular Filtration Rate > 60, Glucose Level 227H, Uric Acid 4.8, Calcium Level 8.7, Phosphorus Level 3.7, Magnesium Level 2.2, Total Bilirubin 0.3, Aspartate Amino Transf (AST/SGOT) 12L, Alanine Aminotransferase (ALT/SGPT) 24, Alkaline Phosphatase 71, C-Reactive Protein, Quantitative < 0.4, Pro-B-Type Natriuretic Peptide 2652H, Total Protein 6.6, Albumin 3.0L, Globulin 3.6, Albumin/Globulin Ratio 0.8L Current Medications Medications (Trade) Dose Ordered Sig/Sha Route PRN Reason Start Time Stop Time Status Last Admin Dose Admin Acetaminophen (Tylenol) 500 mg Q4H PRN ORAL For Pain 12/02/20 08:45 01/01/21 08:44 Acetaminophen (Tylenol) 500 mg Q4H PRN ORAL Temp >100.5 12/02/20 08:45 01/01/21 08:44 Albuterol/ Ipratropium (Combivent Respimat) 1 puff Q6HRT INH 12/01/20 19:00 12/31/20 18:59 12/06/20 07:00 Ceftriaxone Sodium 1 gm/ Dextrose 55 ml @ 110 mls/hr Q24H IVPB 12/01/20 12:00 12/08/20 11:59 12/05/20 11:41 Enoxaparin Sodium (Lovenox) 40 mg DAILY SUBQ 12/02/20 09:00 03/02/21 08:59 12/06/20 08:46 Furosemide (Lasix) 40 mg DAILY IV 12/05/20 09:00 12/31/20 11:59 12/06/20 08:40 Gabapentin (Neurontin) 300 mg THREE TIMES A DAY ORAL 12/04/20 13:00 01/01/21 12:59 12/06/20 08:40 Iron Sucrose 100 mg/Sodium Chloride 60 ml @ 240 mls/hr BEDTIME IVPB 12/02/20 21:00 12/06/20 21:14 12/05/20 20:54 Methylprednisolone Sodium Succinate (Solu-MEDROL) 40 mg EVERY 6 HOURS IVP 12/01/20 12:00 03/01/21 11:59 12/06/20 05:47 Assessment/Plan Assessment/Plan 1. Anemia 2. Elevated inflammatory markers 3. CHF - Elevated BNP - Cardio following -2D echo EF 65% -Continue Lasix 4. COVID-19 PCR negative -Off isolation 5. Hypoxic respiratory failure' exacerbation of COPD -Currently saturating at 95% on 2 L NC; wean as tolerated -Continue pulmonary hygiene and steroid - Continue abx Rehan Carlton MD Dec 06, 2020 11:07
[2020-12-06 12:00] VITALS: BP 122/87
[2020-12-06] MEDS: cefTRIAXone 1 GM in D5W 55 ML IVPB SCH (12:48)
--- NOTE | 2020-12-06 13:14 | Nephrology Progress Note ---
Assessment/Plan Problem List: (1) CHF exacerbation (2) Anemia (3) HCAP (healthcare-associated pneumonia) (4) Acute respiratory failure with hypoxia Assessment Iron deficiency anemia Respiratory failure Exacerbation of CHF Chronic pain Hypoalbuminemia Plan December 06: Labs reviewed. Renal parameters are stable. Continue per consultants. December 05: No labs drawn today. Medication list reviewed. Patient clinically stable. Will check lab tomorrow. December 04: CHEM panel reviewed. Medication list reviewed. Remains stable. Continue per consultants December 03: Stable from renal standpoint of view. No labs drawn today. We will continue to monitor electrolytes and renal parameters. IV iron Stool OB Demise cardiac and pulmonary status Per orders Subjective ROS Limited/Unobtainable: No Constitutional: Reports: malaise Objective Objective Last 24 Hour Vital Signs Date Time Temp Pulse Resp B/P (MAP) Pulse Ox O2 Delivery O2 Flow Rate FiO2 12/06/20 12:00 110 12/06/20 12:00 98.6 114 22 122/87 (99) 96 12/06/20 09:00 Nasal Cannula 1.0 12/06/20 08:00 104 12/06/20 08:00 97.2 101 20 138/87 (104) 97 12/06/20 04:00 97 12/06/20 04:00 97.1 88 21 151/90 (110) 97 12/06/20 00:00 98.0 96 21 134/78 (96) 99 12/06/20 00:00 96 12/05/20 21:00 Nasal Cannula 1.0 12/05/20 20:00 98.9 98 20 134/78 (96) 99 12/05/20 20:00 95 12/05/20 16:37 99 12/05/20 16:00 98.1 71 20 140/76 (97) 97 Intake and Output 12/05/20 12/06/20 19:00 07:00 Intake Total 600 ml 450 ml Balance 600 ml 450 ml Intake Oral 600 ml 450 ml # Voids 3 2 Current Medications Medications (Trade) Dose Ordered Sig/Sha Route PRN Reason Start Time Stop Time Status Last Admin Dose Admin Acetaminophen (Tylenol) 500 mg Q4H PRN ORAL For Pain 12/02/20 08:45 01/01/21 08:44 Acetaminophen (Tylenol) 500 mg Q4H PRN ORAL Temp >100.5 12/02/20 08:45 01/01/21 08:44 Albuterol/ Ipratropium (Combivent Respimat) 1 puff Q6HRT INH 12/01/20 19:00 12/31/20 18:59 12/06/20 12:49 Ceftriaxone Sodium 1 gm/ Dextrose 55 ml @ 110 mls/hr Q24H IVPB 12/01/20 12:00 12/08/20 11:59 12/06/20 12:48 Enoxaparin Sodium (Lovenox) 40 mg DAILY SUBQ 12/02/20 09:00 03/02/21 08:59 12/06/20 08:46 Furosemide (Lasix) 40 mg DAILY IV 12/05/20 09:00 12/31/20 11:59 12/06/20 08:40 Gabapentin (Neurontin) 300 mg THREE TIMES A DAY ORAL 12/04/20 13:00 01/01/21 12:59 12/06/20 12:48 Iron Sucrose 100 mg/Sodium Chloride 60 ml @ 240 mls/hr BEDTIME IVPB 12/02/20 21:00 12/06/20 21:14 12/05/20 20:54 Methylprednisolone Sodium Succinate (Solu-MEDROL) 40 mg EVERY 12 HOURS IVP 12/06/20 21:00 03/01/21 11:59 Laboratory Tests 12/06/20 08:55: White Blood Count 13.4H, Red Blood Count 3.50L, Hemoglobin 9.9L, Hematocrit 34.8L, Mean Corpuscular Volume 99, Mean Corpuscular Hemoglobin 28.4, Mean Corpuscular Hemoglobin Concent 28.6L, Red Cell Distribution Width 21.9H, Platelet Count 229, Mean Platelet Volume 6.7, Neutrophils (%) (Auto) , Lymphocytes (%) (Auto) , Monocytes (%) (Auto) , Eosinophils (%) (Auto) , Basophils (%) (Auto) , Differential Total Cells Counted 100, Neutrophils % (Manual) 91H, Lymphocytes % (Manual) 7L, Monocytes % (Manual) 2, Eosinophils % (Manual) 0, Basophils % (Manual) 0, Band Neutrophils 0, Platelet Estimate Adequate, Platelet Morphology Normal, Polychromasia 1+, Hypochromasia 1+, Anisocytosis 3+, Sodium Level 143, Potassium Level 4.4, Chloride Level 106, Carbon Dioxide Level 30, Anion Gap 7, Blood Urea Nitrogen 32H, Creatinine 0.8, Estimat Glomerular Filtration Rate > 60, Glucose Level 227H, Uric Acid 4.8, Calcium Level 8.7, Phosphorus Level 3.7, Magnesium Level 2.2, Total Bilirubin 0.3, Aspartate Amino Transf (AST/SGOT) 12L, Alanine Aminotransferase (ALT/SGPT) 24, Alkaline Phosphatase 71, C-Reactive Protein, Quantitative < 0.4, Pro-B-Type Natriuretic Peptide 2652H, Total Protein 6.6, Albumin 3.0L, Globulin 3.6, Albumin/Globulin Ratio 0.8L Height (Feet): 5 Height (Inches): 7.00 Weight (Pounds): 147 General Appearance: no apparent distress Cardiovascular: tachycardia Respiratory/Chest: decreased breath sounds Abdomen: distended Hong Wall MD Dec 06, 2020 13:14
--- NOTE | 2020-12-06 13:34 | Infectious Diseases Prog Note ---
Assessment/Plan Assessment/Plan A: 1. Pneumonia. COVID19 test negative on 11/26 & 12/01 2. Congestive heart failure, mild diastolic 3. Hypertension. 4. COPD. 5. Anemia PLAN: 1. Continue ceftriaxone. 2. Negative cultures so far Subjective ROS Limited/Unobtainable: Yes Allergies: Coded Allergies: CODEINE (Verified Allergy, Unknown, 12/01/20) Objective Last 24 Hour Vital Signs Date Time Temp Pulse Resp B/P (MAP) Pulse Ox O2 Delivery O2 Flow Rate FiO2 12/06/20 12:00 110 12/06/20 12:00 98.6 114 22 122/87 (99) 96 12/06/20 09:00 Nasal Cannula 1.0 12/06/20 08:00 104 12/06/20 08:00 97.2 101 20 138/87 (104) 97 12/06/20 04:00 97 12/06/20 04:00 97.1 88 21 151/90 (110) 97 12/06/20 00:00 98.0 96 21 134/78 (96) 99 12/06/20 00:00 96 12/05/20 21:00 Nasal Cannula 1.0 12/05/20 20:00 98.9 98 20 134/78 (96) 99 12/05/20 20:00 95 12/05/20 16:37 99 12/05/20 16:00 98.1 71 20 140/76 (97) 97 Height (Feet): 5 Height (Inches): 7.00 Weight (Pounds): 147 HEENT: mucous membranes moist Respiratory/Chest: lungs clear Cardiovascular: tachycardia Abdomen: soft, non tender Extremities: no edema Neurologic/Psychiatric: other - sleeping Microbiology Date/Time Source Procedure Growth Status 12/03/20 19:30 Sputum Gram Stain - Final Complete 12/03/20 19:30 Sputum Sputum Culture - Final NORMAL UPPER RESPIRATORY DARREL PRESENT Complete Laboratory Tests Test 12/06/20 08:55 White Blood Count 13.4 K/UL (4.8-10.8) H Red Blood Count 3.50 M/UL (4.70-6.10) L Hemoglobin 9.9 G/DL (14.2-18.0) L Hematocrit 34.8 % (42.0-52.0) L Mean Corpuscular Volume 99 FL (80-99) Mean Corpuscular Hemoglobin 28.4 PG (27.0-31.0) Mean Corpuscular Hemoglobin Concent 28.6 G/DL (32.0-36.0) L Red Cell Distribution Width 21.9 % (11.6-14.8) H Platelet Count 229 K/UL (150-450) Mean Platelet Volume 6.7 FL (6.5-10.1) Neutrophils (%) (Auto) % (45.0-75.0) Lymphocytes (%) (Auto) % (20.0-45.0) Monocytes (%) (Auto) % (1.0-10.0) Eosinophils (%) (Auto) % (0.0-3.0) Basophils (%) (Auto) % (0.0-2.0) Differential Total Cells Counted 100 Neutrophils % (Manual) 91 % (45-75) H Lymphocytes % (Manual) 7 % (20-45) L Monocytes % (Manual) 2 % (1-10) Eosinophils % (Manual) 0 % (0-3) Basophils % (Manual) 0 % (0-2) Band Neutrophils 0 % (0-8) Platelet Estimate Adequate Platelet Morphology Normal Polychromasia 1+ Hypochromasia 1+ Anisocytosis 3+ Sodium Level 143 MMOL/L (136-145) Potassium Level 4.4 MMOL/L (3.5-5.1) Chloride Level 106 MMOL/L (98-107) Carbon Dioxide Level 30 MMOL/L (21-32) Anion Gap 7 mmol/L (5-15) Blood Urea Nitrogen 32 mg/dL (7-18) H Creatinine 0.8 MG/DL (0.55-1.30) Estimat Glomerular Filtration Rate > 60 mL/min (>60) Glucose Level 227 MG/DL (74-106) H Uric Acid 4.8 MG/DL (2.6-7.2) Calcium Level 8.7 MG/DL (8.5-10.1) Phosphorus Level 3.7 MG/DL (2.5-4.9) Magnesium Level 2.2 MG/DL (1.8-2.4) Total Bilirubin 0.3 MG/DL (0.2-1.0) Aspartate Amino Transf (AST/SGOT) 12 U/L (15-37) L Alanine Aminotransferase (ALT/SGPT) 24 U/L (12-78) Alkaline Phosphatase 71 U/L (46-116) C-Reactive Protein, Quantitative < 0.4 mg/dL (0.00-0.90) Pro-B-Type Natriuretic Peptide 2652 pg/mL (0-125) H Total Protein 6.6 G/DL (6.4-8.2) Albumin 3.0 G/DL (3.4-5.0) L Globulin 3.6 g/dL Albumin/Globulin Ratio 0.8 (1.0-2.7) L Current Medications Medications (Trade) Dose Ordered Sig/Sha Route PRN Reason Start Time Stop Time Status Last Admin Dose Admin Acetaminophen (Tylenol) 500 mg Q4H PRN ORAL For Pain 12/02/20 08:45 01/01/21 08:44 Acetaminophen (Tylenol) 500 mg Q4H PRN ORAL Temp >100.5 12/02/20 08:45 01/01/21 08:44 Albuterol/ Ipratropium (Combivent Respimat) 1 puff Q6HRT INH 12/01/20 19:00 12/31/20 18:59 12/06/20 12:49 Ceftriaxone Sodium 1 gm/ Dextrose 55 ml @ 110 mls/hr Q24H IVPB 12/01/20 12:00 12/08/20 11:59 12/06/20 12:48 Enoxaparin Sodium (Lovenox) 40 mg DAILY SUBQ 12/02/20 09:00 03/02/21 08:59 12/06/20 08:46 Furosemide (Lasix) 40 mg DAILY IV 12/05/20 09:00 12/31/20 11:59 12/06/20 08:40 Gabapentin (Neurontin) 300 mg THREE TIMES A DAY ORAL 12/04/20 13:00 01/01/21 12:59 12/06/20 12:48 Iron Sucrose 100 mg/Sodium Chloride 60 ml @ 240 mls/hr BEDTIME IVPB 12/02/20 21:00 12/06/20 21:14 12/05/20 20:54 Methylprednisolone Sodium Succinate (Solu-MEDROL) 40 mg EVERY 12 HOURS IVP 12/06/20 21:00 03/01/21 11:59 Lucian Espinoza MD Dec 06, 2020 13:34
[2020-12-06 16:00] VITALS: BP 139/89
--- NOTE | 2020-12-06 16:28 | Cardiac Electrophysiology PN ---
Assessment/Plan Assessment/Plan 1. Congestive heart failure with BNP of > 7000 in this patient with EF of 65%, likely due to diastolic dysfunction as well as pulmonary hypertension. On Lasix 40 mg IV daily. 2. COPD and respiratory failure, on Solu-Medrol 40 iv q 6 as well as ceftriaxone. On 1 liter NC 3. Anemia, etiology is not clear at this time, but could be anemia of chronic disease. 4. Hypertension. On Lasix DW RN Subjective Subjective Ruled out for Covid. No CP or SOB but confused. On RA. LE duplex was negative for DVT. EF 65%. Has bilateral hand and feet numbness/pain better Objective Last 24 Hour Vital Signs Date Time Temp Pulse Resp B/P (MAP) Pulse Ox O2 Delivery O2 Flow Rate FiO2 12/06/20 16:00 98.0 106 21 139/89 (106) 95 12/06/20 12:00 110 12/06/20 12:00 98.6 114 22 122/87 (99) 96 12/06/20 09:00 Nasal Cannula 1.0 12/06/20 08:00 104 12/06/20 08:00 97.2 101 20 138/87 (104) 97 12/06/20 04:00 97 12/06/20 04:00 97.1 88 21 151/90 (110) 97 12/06/20 00:00 98.0 96 21 134/78 (96) 99 12/06/20 00:00 96 12/05/20 21:00 Nasal Cannula 1.0 12/05/20 20:00 98.9 98 20 134/78 (96) 99 12/05/20 20:00 95 12/05/20 16:37 99 Intake and Output 12/05/20 12/06/20 19:00 07:00 Intake Total 600 ml 450 ml Balance 600 ml 450 ml Intake Oral 600 ml 450 ml # Voids 3 2 Laboratory Tests Test 12/06/20 08:55 White Blood Count 13.4 K/UL (4.8-10.8) H Red Blood Count 3.50 M/UL (4.70-6.10) L Hemoglobin 9.9 G/DL (14.2-18.0) L Hematocrit 34.8 % (42.0-52.0) L Mean Corpuscular Volume 99 FL (80-99) Mean Corpuscular Hemoglobin 28.4 PG (27.0-31.0) Mean Corpuscular Hemoglobin Concent 28.6 G/DL (32.0-36.0) L Red Cell Distribution Width 21.9 % (11.6-14.8) H Platelet Count 229 K/UL (150-450) Mean Platelet Volume 6.7 FL (6.5-10.1) Neutrophils (%) (Auto) % (45.0-75.0) Lymphocytes (%) (Auto) % (20.0-45.0) Monocytes (%) (Auto) % (1.0-10.0) Eosinophils (%) (Auto) % (0.0-3.0) Basophils (%) (Auto) % (0.0-2.0) Differential Total Cells Counted 100 Neutrophils % (Manual) 91 % (45-75) H Lymphocytes % (Manual) 7 % (20-45) L Monocytes % (Manual) 2 % (1-10) Eosinophils % (Manual) 0 % (0-3) Basophils % (Manual) 0 % (0-2) Band Neutrophils 0 % (0-8) Platelet Estimate Adequate Platelet Morphology Normal Polychromasia 1+ Hypochromasia 1+ Anisocytosis 3+ Sodium Level 143 MMOL/L (136-145) Potassium Level 4.4 MMOL/L (3.5-5.1) Chloride Level 106 MMOL/L (98-107) Carbon Dioxide Level 30 MMOL/L (21-32) Anion Gap 7 mmol/L (5-15) Blood Urea Nitrogen 32 mg/dL (7-18) H Creatinine 0.8 MG/DL (0.55-1.30) Estimat Glomerular Filtration Rate > 60 mL/min (>60) Glucose Level 227 MG/DL (74-106) H Uric Acid 4.8 MG/DL (2.6-7.2) Calcium Level 8.7 MG/DL (8.5-10.1) Phosphorus Level 3.7 MG/DL (2.5-4.9) Magnesium Level 2.2 MG/DL (1.8-2.4) Total Bilirubin 0.3 MG/DL (0.2-1.0) Aspartate Amino Transf (AST/SGOT) 12 U/L (15-37) L Alanine Aminotransferase (ALT/SGPT) 24 U/L (12-78) Alkaline Phosphatase 71 U/L (46-116) C-Reactive Protein, Quantitative < 0.4 mg/dL (0.00-0.90) Pro-B-Type Natriuretic Peptide 2652 pg/mL (0-125) H Total Protein 6.6 G/DL (6.4-8.2) Albumin 3.0 G/DL (3.4-5.0) L Globulin 3.6 g/dL Albumin/Globulin Ratio 0.8 (1.0-2.7) L Microbiology Date/Time Source Procedure Growth Status 12/03/20 19:30 Sputum Gram Stain - Final Complete 12/03/20 19:30 Sputum Sputum Culture - Final NORMAL UPPER RESPIRATORY DARREL PRESENT Complete Objective HEAD AND NECK: No JVD. LUNGS: Clear. CARDIOVASCULAR: Regular S1 and S2 with no gallop or murmur. ABDOMEN: Soft. EXTREMITIES: No pitting edema. Christian Mendoza MD Dec 06, 2020 16:28
[2020-12-06 20:00] VITALS: BP 139/82
[2020-12-06] MEDS: Iron Sucrose 100 MG in NS 55 ML IVPB SCH (20:12)
--- NOTE | 2020-12-06 20:52 | General Progress Note ---
Subjective ROS Limited/Unobtainable: Yes Allergies: Coded Allergies: CODEINE (Verified Allergy, Unknown, 12/01/20) Objective Last 24 Hour Vital Signs Date Time Temp Pulse Resp B/P (MAP) Pulse Ox O2 Delivery O2 Flow Rate FiO2 12/06/20 16:00 98.0 106 21 139/89 (106) 95 12/06/20 16:00 95 12/06/20 12:00 110 12/06/20 12:00 98.6 114 22 122/87 (99) 96 12/06/20 09:00 Nasal Cannula 1.0 12/06/20 08:00 104 12/06/20 08:00 97.2 101 20 138/87 (104) 97 12/06/20 04:00 97 12/06/20 04:00 97.1 88 21 151/90 (110) 97 12/06/20 00:00 98.0 96 21 134/78 (96) 99 12/06/20 00:00 96 12/05/20 21:00 Nasal Cannula 1.0 Intake and Output 12/05/20 12/06/20 19:00 07:00 Intake Total 600 ml 450 ml Balance 600 ml 450 ml Intake Oral 600 ml 450 ml # Voids 3 2 Laboratory Tests 12/06/20 08:55: White Blood Count 13.4H, Red Blood Count 3.50L, Hemoglobin 9.9L, Hematocrit 34.8L, Mean Corpuscular Volume 99, Mean Corpuscular Hemoglobin 28.4, Mean Corpuscular Hemoglobin Concent 28.6L, Red Cell Distribution Width 21.9H, Platelet Count 229, Mean Platelet Volume 6.7, Neutrophils (%) (Auto) , Lymphocytes (%) (Auto) , Monocytes (%) (Auto) , Eosinophils (%) (Auto) , Basophils (%) (Auto) , Differential Total Cells Counted 100, Neutrophils % (Manual) 91H, Lymphocytes % (Manual) 7L, Monocytes % (Manual) 2, Eosinophils % (Manual) 0, Basophils % (Manual) 0, Band Neutrophils 0, Platelet Estimate Adequate, Platelet Morphology Normal, Polychromasia 1+, Hypochromasia 1+, Anisocytosis 3+, Sodium Level 143, Potassium Level 4.4, Chloride Level 106, Carbon Dioxide Level 30, Anion Gap 7, Blood Urea Nitrogen 32H, Creatinine 0.8, Estimat Glomerular Filtration Rate > 60, Glucose Level 227H, Uric Acid 4.8, Calcium Level 8.7, Phosphorus Level 3.7, Magnesium Level 2.2, Total Bilirubin 0.3, Aspartate Amino Transf (AST/SGOT) 12L, Alanine Aminotransferase (ALT/SGPT) 24, Alkaline Phosphatase 71, C-Reactive Protein, Quantitative < 0.4, Pro-B-Type Natriuretic Peptide 2652H, Total Protein 6.6, Albumin 3.0L, Globulin 3.6, Albumin/Globulin Ratio 0.8L Height (Feet): 5 Height (Inches): 7.00 Weight (Pounds): 147 Assessment/Plan Problem List: (1) HCAP (healthcare-associated pneumonia) ICD Codes: J18.9 - Pneumonia, unspecified organism SNOMED: 649536072, 762953963 (2) Anemia ICD Codes: D64.9 - Anemia, unspecified SNOMED: 683718900, [id number] Qualifiers: Qualified Codes: D64.9 - Anemia, unspecified (3) Chronic pain ICD Codes: G89.29 - Other chronic pain SNOMED: 45150340, 681007638 Qualifiers: Qualified Codes: G89.4 - Chronic pain syndrome (4) CHF exacerbation ICD Codes: I50.9 - Heart failure, unspecified SNOMED: 237821349, [id number] Qualifiers: Qualified Codes: I50.9 - Heart failure, unspecified (5) Acute respiratory failure with hypoxia ICD Codes: J96.01 - Acute respiratory failure with hypoxia SNOMED: 65995782, 717232874 Assessment/Plan: chf exacerbation r/o pna clinically improving reviewed chart check La Francisco MD Dec 06, 2020 20:52
[2020-12-07] VITALS: BP 136/81
[2020-12-07 04:00] VITALS: BP 142/74
--- NOTE | 2020-12-07 07:45 | Pulmonology Progress Note ---
Subjective ROS Limited/Unobtainable: Yes Interval Events: None major reported per nursing Constitutional: Reports: no symptoms HEENT: Repors: no symptoms Respiratory: Reports: no symptoms Cardiovascular: Reports: no symptoms Gastrointestinal/Abdominal: Reports: no symptoms Allergies: Coded Allergies: CODEINE (Verified Allergy, Unknown, 12/01/20) Objective Last 24 Hour Vital Signs Date Time Temp Pulse Resp B/P (MAP) Pulse Ox O2 Delivery O2 Flow Rate FiO2 12/07/20 04:00 97 12/07/20 04:00 98.1 97 18 142/74 (96) 97 12/07/20 00:00 98.6 102 20 136/81 (99) 95 12/07/20 00:00 102 12/06/20 21:00 Nasal Cannula 1.0 12/06/20 20:00 98.7 106 18 139/82 (101) 95 12/06/20 20:00 104 12/06/20 16:00 98.0 106 21 139/89 (106) 95 12/06/20 16:00 95 12/06/20 12:00 110 12/06/20 12:00 98.6 114 22 122/87 (99) 96 12/06/20 09:00 Nasal Cannula 1.0 12/06/20 08:00 104 12/06/20 08:00 97.2 101 20 138/87 (104) 97 Intake and Output 12/06/20 12/07/20 19:00 07:00 Intake Total 360 ml 360 ml Output Total 800 ml Balance -440 ml 360 ml Intake Oral 360 ml 360 ml Output Urine Total 800 ml # Bowel Movements 1 General Appearance: no acute distress HEENT: atraumatic Respiratory: decreased breath sounds Cardiovascular: tachycardia Abdomen: soft, non tender Laboratory Tests 12/06/20 08:55: White Blood Count 13.4H, Red Blood Count 3.50L, Hemoglobin 9.9L, Hematocrit 34.8L, Mean Corpuscular Volume 99, Mean Corpuscular Hemoglobin 28.4, Mean Corpuscular Hemoglobin Concent 28.6L, Red Cell Distribution Width 21.9H, Platelet Count 229, Mean Platelet Volume 6.7, Neutrophils (%) (Auto) , Lymphocytes (%) (Auto) , Monocytes (%) (Auto) , Eosinophils (%) (Auto) , Basophils (%) (Auto) , Differential Total Cells Counted 100, Neutrophils % (Manual) 91H, Lymphocytes % (Manual) 7L, Monocytes % (Manual) 2, Eosinophils % (Manual) 0, Basophils % (Manual) 0, Band Neutrophils 0, Platelet Estimate Adequate, Platelet Morphology Normal, Polychromasia 1+, Hypochromasia 1+, Anisocytosis 3+, Sodium Level 143, Potassium Level 4.4, Chloride Level 106, Carbon Dioxide Level 30, Anion Gap 7, Blood Urea Nitrogen 32H, Creatinine 0.8, Estimat Glomerular Filtration Rate > 60, Glucose Level 227H, Uric Acid 4.8, Calcium Level 8.7, Phosphorus Level 3.7, Magnesium Level 2.2, Total Bilirubin 0.3, Aspartate Amino Transf (AST/SGOT) 12L, Alanine Aminotransferase (ALT/SGPT) 24, Alkaline Phosphatase 71, C-Reactive Protein, Quantitative < 0.4, Pro-B-Type Natriuretic Peptide 2652H, Total Protein 6.6, Albumin 3.0L, Globulin 3.6, Albumin/Globulin Ratio 0.8L Current Medications Medications (Trade) Dose Ordered Sig/Sha Route PRN Reason Start Time Stop Time Status Last Admin Dose Admin Acetaminophen (Tylenol) 500 mg Q4H PRN ORAL For Pain 12/02/20 08:45 01/01/21 08:44 Acetaminophen (Tylenol) 500 mg Q4H PRN ORAL Temp >100.5 12/02/20 08:45 01/01/21 08:44 Albuterol/ Ipratropium (Combivent Respimat) 1 puff Q6HRT INH 12/01/20 19:00 12/31/20 18:59 12/07/20 01:05 Ceftriaxone Sodium 1 gm/ Dextrose 55 ml @ 110 mls/hr Q24H IVPB 12/01/20 12:00 12/08/20 11:59 12/06/20 12:48 Enoxaparin Sodium (Lovenox) 40 mg DAILY SUBQ 12/02/20 09:00 03/02/21 08:59 12/06/20 08:46 Furosemide (Lasix) 40 mg DAILY IV 12/05/20 09:00 12/31/20 11:59 12/06/20 08:40 Gabapentin (Neurontin) 300 mg THREE TIMES A DAY ORAL 12/04/20 13:00 01/01/21 12:59 12/06/20 17:26 Methylprednisolone Sodium Succinate (Solu-MEDROL) 40 mg EVERY 12 HOURS IVP 12/06/20 21:00 03/01/21 11:59 12/06/20 20:12 Assessment/Plan Assessment/Plan 1. Anemia 2. Elevated inflammatory markers 3. CHF - Elevated BNP - Cardio following -2D echo EF 65% -Continue Lasix 4. COVID-19 PCR negative -Off isolation 5. Hypoxic respiratory failure' exacerbation of COPD -Currently saturating at 95% on 1-2 L NC; wean as tolerated -Continue pulmonary hygiene and steroid - Continue abx Rehan Carlton MD Dec 07, 2020 07:45
[2020-12-07 08:00] VITALS: BP 151/80
[2020-12-07] MEDS: Solu-MEDROL 40mg Inj IVP SCH ×2 (08:05→20:31)
[2020-12-07] MEDS: Enoxaparin 40mg Inj SUBQ SCH (08:08)
--- NOTE | 2020-12-07 10:42 | General Progress Note ---
Subjective Date patient seen: Dec 07, 2020 Time patient seen: 10:15 - am Allergies: Coded Allergies: CODEINE (Verified Allergy, Unknown, 12/01/20) Subjective HISTORY OF PRESENT ILLNESS: The patient is a 60-year-old male who is being seen on the telemetry floor of [facility]. Patient in bed no signs of pain or distress. REVIEW OF SYSTEMS: Denies rash, fever, chills, sweating, dizziness, drowsiness, blurred vision, sore throat, or change in hearing or weight. No nausea, vomiting, diarrhea, or blood in the stool or urine. No dysuria. Objective Last 24 Hour Vital Signs Date Time Temp Pulse Resp B/P (MAP) Pulse Ox O2 Delivery O2 Flow Rate FiO2 12/07/20 09:00 Room Air 12/07/20 08:00 97 12/07/20 08:00 98.7 81 17 151/80 (103) 96 12/07/20 04:00 97 12/07/20 04:00 98.1 97 18 142/74 (96) 97 12/07/20 00:00 98.6 102 20 136/81 (99) 95 12/07/20 00:00 102 12/06/20 21:00 Nasal Cannula 1.0 12/06/20 20:00 98.7 106 18 139/82 (101) 95 12/06/20 20:00 104 12/06/20 16:00 98.0 106 21 139/89 (106) 95 12/06/20 16:00 95 12/06/20 12:00 110 12/06/20 12:00 98.6 114 22 122/87 (99) 96 Intake and Output 12/06/20 12/07/20 19:00 07:00 Intake Total 360 ml 360 ml Output Total 800 ml Balance -440 ml 360 ml Intake Oral 360 ml 360 ml Output Urine Total 800 ml # Bowel Movements 1 Height (Feet): 5 Height (Inches): 7.00 Weight (Pounds): 147 Objective PHYSICAL EXAMINATION: GENERAL: Alert, awake, and oriented. LUNGS: Decreased breath sounds bilaterally. HEART: S1 and S2 regular. ABDOMEN: Soft and nontender. EXTREMITIES: No cyanosis. No clubbing. NEURO: No changes. Assessment/Plan Assessment/Plan: (1) Degenerative joint disease (2) Multiple joint pain Patient to be continued on Tylenol and Neurontin D/w Dr. Camacho and he concurred. Scott Yates Dec 07, 2020 10:42
[2020-12-07 12:00] VITALS: BP 150/86
[2020-12-07] MEDS: cefTRIAXone 1 GM in D5W 55 ML IVPB SCH (12:11)
--- NOTE | 2020-12-07 13:42 | Nephrology Progress Note ---
Assessment/Plan Problem List: (1) CHF exacerbation (2) Anemia (3) HCAP (healthcare-associated pneumonia) (4) Acute respiratory failure with hypoxia Assessment Iron deficiency anemia Respiratory failure Exacerbation of CHF Chronic pain Hypoalbuminemia Plan December 07: No labs drawn today. Clinically stable. Continue to monitor renal parameters. December 06: Labs reviewed. Renal parameters are stable. Continue per consultants. December 05: No labs drawn today. Medication list reviewed. Patient clinically stable. Will check lab tomorrow. December 04: CHEM panel reviewed. Medication list reviewed. Remains stable. Continue per consultants December 03: Stable from renal standpoint of view. No labs drawn today. We will continue to monitor electrolytes and renal parameters. IV iron Stool OB Demise cardiac and pulmonary status Per orders Subjective ROS Limited/Unobtainable: No Constitutional: Reports: malaise Objective Objective Last 24 Hour Vital Signs Date Time Temp Pulse Resp B/P (MAP) Pulse Ox O2 Delivery O2 Flow Rate FiO2 12/07/20 12:00 90 12/07/20 12:00 98.8 69 18 150/86 (107) 97 12/07/20 09:00 Room Air 12/07/20 08:00 97 12/07/20 08:00 98.7 81 17 151/80 (103) 96 12/07/20 04:00 97 12/07/20 04:00 98.1 97 18 142/74 (96) 97 12/07/20 00:00 98.6 102 20 136/81 (99) 95 12/07/20 00:00 102 12/06/20 21:00 Nasal Cannula 1.0 12/06/20 20:00 98.7 106 18 139/82 (101) 95 12/06/20 20:00 104 12/06/20 16:00 98.0 106 21 139/89 (106) 95 12/06/20 16:00 95 Intake and Output 12/06/20 12/07/20 19:00 07:00 Intake Total 360 ml 360 ml Output Total 800 ml Balance -440 ml 360 ml Intake Oral 360 ml 360 ml Output Urine Total 800 ml # Bowel Movements 1 Current Medications Medications (Trade) Dose Ordered Sig/Sha Route PRN Reason Start Time Stop Time Status Last Admin Dose Admin Acetaminophen (Tylenol) 500 mg Q4H PRN ORAL For Pain 12/02/20 08:45 01/01/21 08:44 Acetaminophen (Tylenol) 500 mg Q4H PRN ORAL Temp >100.5 12/02/20 08:45 01/01/21 08:44 Albuterol/ Ipratropium (Combivent Respimat) 1 puff Q6HRT INH 12/01/20 19:00 12/31/20 18:59 12/07/20 12:10 Ceftriaxone Sodium 1 gm/ Dextrose 55 ml @ 110 mls/hr Q24H IVPB 12/07/20 12:00 12/14/20 11:59 12/07/20 12:11 Enoxaparin Sodium (Lovenox) 40 mg DAILY SUBQ 12/02/20 09:00 03/02/21 08:59 12/07/20 08:08 Furosemide (Lasix) 40 mg DAILY IV 12/05/20 09:00 12/31/20 11:59 12/07/20 08:06 Gabapentin (Neurontin) 300 mg THREE TIMES A DAY ORAL 12/04/20 13:00 01/01/21 12:59 12/07/20 12:11 Methylprednisolone Sodium Succinate (Solu-MEDROL) 40 mg EVERY 12 HOURS IVP 12/06/20 21:00 03/01/21 11:59 12/07/20 08:05 Height (Feet): 5 Height (Inches): 7.00 Weight (Pounds): 147 General Appearance: no apparent distress Cardiovascular: tachycardia Respiratory/Chest: decreased breath sounds Abdomen: distended Hong Wall MD Dec 07, 2020 13:42
[2020-12-07 16:00] VITALS: BP 149/93
[2020-12-07 20:00] VITALS: BP 137/82
--- NOTE | 2020-12-07 21:30 | General Progress Note ---
Subjective ROS Limited/Unobtainable: Yes Allergies: Coded Allergies: CODEINE (Verified Allergy, Unknown, 12/01/20) Objective Last 24 Hour Vital Signs Date Time Temp Pulse Resp B/P (MAP) Pulse Ox O2 Delivery O2 Flow Rate FiO2 12/07/20 16:00 112 12/07/20 16:00 96.6 94 19 149/93 (111) 96 12/07/20 12:00 90 12/07/20 12:00 98.8 69 18 150/86 (107) 97 12/07/20 09:00 Room Air 12/07/20 08:00 97 12/07/20 08:00 98.7 81 17 151/80 (103) 96 12/07/20 04:00 97 12/07/20 04:00 98.1 97 18 142/74 (96) 97 12/07/20 00:00 98.6 102 20 136/81 (99) 95 12/07/20 00:00 102 Intake and Output0 12/06/20 12/07/20 19:00 07:00 Intake Total 360 ml 360 ml Output Total 800 ml Balance -440 ml 360 ml Intake Oral 360 ml 360 ml Output Urine Total 800 ml # Bowel Movements 1 Height (Feet): 5 Height (Inches): 7.00 Weight (Pounds): 147 Assessment/Plan Problem List: (1) HCAP (healthcare-associated pneumonia) ICD Codes: J18.9 - Pneumonia, unspecified organism SNOMED: 197825148, 215773149 (2) Anemia ICD Codes: D64.9 - Anemia, unspecified SNOMED: 311890513, 981537335 Qualifiers: Qualified Codes: D64.9 - Anemia, unspecified (3) Chronic pain ICD Codes: G89.29 - Other chronic pain SNOMED: 24854440, 624960708 Qualifiers: Qualified Codes: G89.4 - Chronic pain syndrome (4) CHF exacerbation ICD Codes: I50.9 - Heart failure, unspecified SNOMED: 041021481, [id number] Qualifiers: Qualified Codes: I50.9 - Heart failure, unspecified (5) Acute respiratory failure with hypoxia ICD Codes: J96.01 - Acute respiratory failure with hypoxia SNOMED: 53712206, 575289339 Status: progressing Assessment/Plan: afebrile chf exacerbation no wheezing pna resp insuff poor historian La Pal MD Dec 07, 2020 21:29
[2020-12-08] VITALS: BP 130/82
[2020-12-08 04:00] VITALS: BP 150/88
[2020-12-08 07:57] LABS: BASOPHILS % (AUTO) 1.8 % (0.0-2.0); HEMATOCRIT 37.6 % (42.0-52.0); HEMOGLOBIN 10.5 G/DL (14.2-18.0); LYMPHOCYTES % (AUTO) 8.2 % (20.0-45.0); MEAN CORPUSCULAR VOLUME 102 FL (80-99); MONOCYTES % (AUTO) 8.2 % (1.0-10.0); NEUTROPHILS % (AUTO) 81.8 % (45.0-75.0); PLATELET COUNT 207 K/UL (150-450); RED BLOOD COUNT 3.68 M/UL (4.70-6.10); RED CELL DISTRIBUTION WIDTH 22.3 % (11.6-14.8); WHITE BLOOD COUNT 17.4 K/UL (4.8-10.8)
[2020-12-08 08:00] VITALS: BP 144/81
[2020-12-08 08:15] LABS: ALANINE AMINOTRANSFERASE 42 U/L (12-78); ALBUMIN 2.9 G/DL (3.4-5.0); ALBUMIN/GLOBULIN RATIO 0.9 (1.0-2.7); ALKALINE PHOSPHATASE 96 U/L (46-116); ANION GAP 4 mmol/L (5-15); ASPARTATE AMINO TRANSFERASE 22 U/L (15-37); BILIRUBIN,TOTAL 0.3 MG/DL (0.2-1.0); BLOOD UREA NITROGEN 36 mg/dL (7-18); CALCIUM 8.3 MG/DL (8.5-10.1); CARBON DIOXIDE 32 MMOL/L (21-32); CHLORIDE 107 MMOL/L (98-107); CREATININE 0.8 MG/DL (0.55-1.30); PHOSPHORUS 3.4 MG/DL (2.5-4.9); SODIUM 143 MMOL/L (136-145)
--- NOTE | 2020-12-08 08:39 | General Progress Note ---
Subjective Date patient seen: Dec 08, 2020 Time patient seen: 07:45 - am Allergies: Coded Allergies: CODEINE (Verified Allergy, Unknown, 12/01/20) Subjective HISTORY OF PRESENT ILLNESS: The patient is a 60-year-old male who is being seen on the telemetry floor of [facility]. Sitting in bed and showing no signs of pain or distress. No new complaints at this time. REVIEW OF SYSTEMS: Denies rash, fever, chills, sweating, dizziness, drowsiness, blurred vision, sore throat, or change in hearing or weight. No nausea, vomiting, diarrhea, or blood in the stool or urine. No dysuria. Objective Last 24 Hour Vital Signs Date Time Temp Pulse Resp B/P (MAP) Pulse Ox O2 Delivery O2 Flow Rate FiO2 12/08/20 04:00 101 12/08/20 04:00 97.7 92 18 150/88 (108) 97 12/08/20 00:00 98.8 108 18 130/82 (98) 97 12/08/20 00:00 92 12/07/20 21:00 Room Air 12/07/20 20:00 98.4 111 18 137/82 (100) 100 12/07/20 19:02 118 12/07/20 16:00 112 12/07/20 16:00 96.6 94 19 149/93 (111) 96 12/07/20 12:00 90 12/07/20 12:00 98.8 69 18 150/86 (107) 97 12/07/20 09:00 Room Air Intake and Output 12/07/20 12/08/20 19:00 07:00 Intake Total 450 ml 500 ml Output Total 700 ml Balance 450 ml -200 ml Intake Oral 450 ml 500 ml Output Urine Total 700 ml Laboratory Tests 12/08/20 06:48: White Blood Count 17.4H, Red Blood Count 3.68L, Hemoglobin 10.5L, Hematocrit 37.6L, Mean Corpuscular Volume 102H, Mean Corpuscular Hemoglobin 28.6, Mean Corpuscular Hemoglobin Concent 28.0L, Red Cell Distribution Width 22.3H, Platelet Count 207, Mean Platelet Volume 6.7, Neutrophils (%) (Auto) 81.8H, Lymphocytes (%) (Auto) 8.2L, Monocytes (%) (Auto) 8.2, Eosinophils (%) (Auto) 0.0, Basophils (%) (Auto) 1.8, Sodium Level [Pending], Potassium Level [Pending], Chloride Level [Pending], Carbon Dioxide Level [Pending], Blood Urea Nitrogen [Pending], Creatinine [Pending], Estimat Glomerular Filtration Rate [Pending], Glucose Level [Pending], Calcium Level [Pending], Phosphorus Level [ Pending], Magnesium Level [Pending], Total Bilirubin [Pending], Aspartate Amino Transf (AST/SGOT) [Pending], Alanine Aminotransferase (ALT/SGPT) [Pending], Alkaline Phosphatase [Pending], C-Reactive Protein, Quantitative [Pending], Total Protein [Pending], Albumin [Pending], Globulin [Pending] Height (Feet): 5 Height (Inches): 7.00 Weight (Pounds): 147 Objective PHYSICAL EXAMINATION: GENERAL: Alert, awake, and oriented. LUNGS: Decreased breath sounds bilaterally. HEART: S1 and S2 regular. ABDOMEN: Soft and nontender. EXTREMITIES: No cyanosis. No clubbing. NEURO: No changes. Assessment/Plan Status: progressing Assessment/Plan: (1) Degenerative joint disease (2) Multiple joint pain Patient to be continued on Tylenol and Neurontin D/w Dr. Camacho and he concurred. Scott Yates Dec 08, 2020 08:39
[2020-12-08] MEDS: Solu-MEDROL 40mg Inj IVP SCH (08:51)
[2020-12-08] MEDS: Enoxaparin 40mg Inj SUBQ SCH (08:54)
--- NOTE | 2020-12-08 10:23 | Nephrology Progress Note ---
Assessment/Plan Problem List: (1) CHF exacerbation (2) Anemia (3) HCAP (healthcare-associated pneumonia) (4) Acute respiratory failure with hypoxia Assessment Iron deficiency anemia Respiratory failure Exacerbation of CHF Chronic pain Hypoalbuminemia Plan December 08: Labs reviewed. White blood cells rising. Renal parameters stable. Continue per consultants. December 07: No labs drawn today. Clinically stable. Continue to monitor renal parameters. December 06: Labs reviewed. Renal parameters are stable. Continue per consultants. December 05: No labs drawn today. Medication list reviewed. Patient clinically stable. Will check lab tomorrow. December 04: CHEM panel reviewed. Medication list reviewed. Remains stable. Continue per consultants December 03: Stable from renal standpoint of view. No labs drawn today. We will continue to monitor electrolytes and renal parameters. IV iron Stool OB Demise cardiac and pulmonary status Per orders Subjective ROS Limited/Unobtainable: No Objective Objective Last 24 Hour Vital Signs Date Time Temp Pulse Resp B/P (MAP) Pulse Ox O2 Delivery O2 Flow Rate FiO2 12/08/20 08:00 108 12/08/20 08:00 97.9 109 20 144/81 (102) 99 12/08/20 04:00 101 12/08/20 04:00 97.7 92 18 150/88 (108) 97 12/08/20 00:00 98.8 108 18 130/82 (98) 97 12/08/20 00:00 92 12/07/20 21:00 Room Air 12/07/20 20:00 98.4 111 18 137/82 (100) 100 12/07/20 19:02 118 12/07/20 16:00 112 12/07/20 16:00 96.6 94 19 149/93 (111) 96 12/07/20 12:00 90 12/07/20 12:00 98.8 69 18 150/86 (107) 97 Intake and Output 12/07/20 12/08/20 19:00 07:00 Intake Total 450 ml 500 ml Output Total 700 ml Balance 450 ml -200 ml Intake Oral 450 ml 500 ml Output Urine Total 700 ml Current Medications Medications (Trade) Dose Ordered Sig/Sha Route PRN Reason Start Time Stop Time Status Last Admin Dose Admin Acetaminophen (Tylenol) 500 mg Q4H PRN ORAL For Pain 12/02/20 08:45 01/01/21 08:44 Acetaminophen (Tylenol) 500 mg Q4H PRN ORAL Temp >100.5 12/02/20 08:45 01/01/21 08:44 Albuterol/ Ipratropium (Combivent Respimat) 1 puff Q6HRT INH 12/01/20 19:00 12/31/20 18:59 12/08/20 06:33 Ceftriaxone Sodium 1 gm/ Dextrose 55 ml @ 110 mls/hr Q24H IVPB 12/07/20 12:00 12/14/20 11:59 12/07/20 12:11 Enoxaparin Sodium (Lovenox) 40 mg DAILY SUBQ 12/02/20 09:00 03/02/21 08:59 12/08/20 08:54 Furosemide (Lasix) 40 mg DAILY IV 12/05/20 09:00 12/31/20 11:59 12/08/20 08:51 Gabapentin (Neurontin) 300 mg THREE TIMES A DAY ORAL 12/04/20 13:00 01/01/21 12:59 12/08/20 08:51 Methylprednisolone Sodium Succinate (Solu-MEDROL) 40 mg EVERY 12 HOURS IVP 12/06/20 21:00 03/01/21 11:59 12/08/20 08:51 Laboratory Tests 12/08/20 06:48: White Blood Count 17.4H, Red Blood Count 3.68L, Hemoglobin 10.5L, Hematocrit 37.6L, Mean Corpuscular Volume 102H, Mean Corpuscular Hemoglobin 28.6, Mean Corpuscular Hemoglobin Concent 28.0L, Red Cell Distribution Width 22.3H, Platelet Count 207, Mean Platelet Volume 6.7, Neutrophils (%) (Auto) 81.8H, Lymphocytes (%) (Auto) 8.2L, Monocytes (%) (Auto) 8.2, Eosinophils (%) (Auto) 0.0, Basophils (%) (Auto) 1.8, Sodium Level 143, Potassium Level 5.0, Chloride Level 107, Carbon Dioxide Level 32, Anion Gap 4L, Blood Urea Nitrogen 36H, Creatinine 0.8, Estimat Glomerular Filtration Rate > 60, Glucose Level 247H, Calcium Level 8.3L, Phosphorus Level 3.4, Magnesium Level 2.3, Total Bilirubin 0.3, Aspartate Amino Transf (AST/SGOT) 22, Alanine Aminotransferase (ALT/SGPT) 42, Alkaline Phosphatase 96, C-Reactive Protein, Quantitative < 0.4, Total Protein 6.0L, Albumin 2.9L, Globulin 3.1, Albumin/Globulin Ratio 0.9L Height (Feet): 5 Height (Inches): 7.00 Weight (Pounds): 147 General Appearance: no apparent distress Cardiovascular: tachycardia Respiratory/Chest: decreased breath sounds Abdomen: distended Hong Wall MD Dec 08, 2020 10:23
[2020-12-08] MEDS: cefTRIAXone 1 GM in D5W 55 ML IVPB SCH (11:07)
--- NOTE | 2020-12-08 11:11 | Infectious Diseases Prog Note ---
Assessment/Plan Assessment/Plan A: 1. Pneumonia. COVID19 test negative on 11/26 & 12/01 2. Congestive heart failure, mild diastolic 3. Hypertension. 4. COPD. 5. Anemia 6. Leukocytosis maybe steroid related PLAN: 1. Discontinue ceftriaxone. 2. Taper steroids Subjective ROS Limited/Unobtainable: No Constitutional: Reports: no symptoms Respiratory: Reports: no symptoms Cardiovascular: Reports: no symptoms Gastrointestinal/Abdominal: Reports: no symptoms Genitourinary: Reports: no symptoms Allergies: Coded Allergies: CODEINE (Verified Allergy, Unknown, 12/01/20) Objective Last 24 Hour Vital Signs Date Time Temp Pulse Resp B/P (MAP) Pulse Ox O2 Delivery O2 Flow Rate FiO2 12/08/20 09:00 Room Air 12/08/20 08:00 108 12/08/20 08:00 97.9 109 20 144/81 (102) 99 12/08/20 04:00 101 12/08/20 04:00 97.7 92 18 150/88 (108) 97 12/08/20 00:00 98.8 108 18 130/82 (98) 97 12/08/20 00:00 92 12/07/20 21:00 Room Air 12/07/20 20:00 98.4 111 18 137/82 (100) 100 12/07/20 19:02 118 12/07/20 16:00 112 12/07/20 16:00 96.6 94 19 149/93 (111) 96 12/07/20 12:00 90 12/07/20 12:00 98.8 69 18 150/86 (107) 97 Height (Feet): 5 Height (Inches): 7.00 Weight (Pounds): 147 HEENT: mucous membranes moist Respiratory/Chest: normal breath sounds Cardiovascular: normal rate Abdomen: soft, non tender Genitourinary: other - condom catheter Extremities: no edema Neurologic/Psychiatric: alert, responsive Laboratory Tests Test 12/08/20 06:48 White Blood Count 17.4 K/UL (4.8-10.8) H Red Blood Count 3.68 M/UL (4.70-6.10) L Hemoglobin 10.5 G/DL (14.2-18.0) L Hematocrit 37.6 % (42.0-52.0) L Mean Corpuscular Volume 102 FL (80-99) H Mean Corpuscular Hemoglobin 28.6 PG (27.0-31.0) Mean Corpuscular Hemoglobin Concent 28.0 G/DL (32.0-36.0) L Red Cell Distribution Width 22.3 % (11.6-14.8) H Platelet Count 207 K/UL (150-450) Mean Platelet Volume 6.7 FL (6.5-10.1) Neutrophils (%) (Auto) 81.8 % (45.0-75.0) H Lymphocytes (%) (Auto) 8.2 % (20.0-45.0) L Monocytes (%) (Auto) 8.2 % (1.0-10.0) Eosinophils (%) (Auto) 0.0 % (0.0-3.0) Basophils (%) (Auto) 1.8 % (0.0-2.0) Sodium Level 143 MMOL/L (136-145) Potassium Level 5.0 MMOL/L (3.5-5.1) Chloride Level 107 MMOL/L (98-107) Carbon Dioxide Level 32 MMOL/L (21-32) Anion Gap 4 mmol/L (5-15) L Blood Urea Nitrogen 36 mg/dL (7-18) H Creatinine 0.8 MG/DL (0.55-1.30) Estimat Glomerular Filtration Rate > 60 mL/min (>60) Glucose Level 247 MG/DL (74-106) H Calcium Level 8.3 MG/DL (8.5-10.1) L Phosphorus Level 3.4 MG/DL (2.5-4.9) Magnesium Level 2.3 MG/DL (1.8-2.4) Total Bilirubin 0.3 MG/DL (0.2-1.0) Aspartate Amino Transf (AST/SGOT) 22 U/L (15-37) Alanine Aminotransferase (ALT/SGPT) 42 U/L (12-78) Alkaline Phosphatase 96 U/L (46-116) C-Reactive Protein, Quantitative < 0.4 mg/dL (0.00-0.90) Total Protein 6.0 G/DL (6.4-8.2) L Albumin 2.9 G/DL (3.4-5.0) L Globulin 3.1 g/dL Albumin/Globulin Ratio 0.9 (1.0-2.7) L Current Medications Medications (Trade) Dose Ordered Sig/Sha Route PRN Reason Start Time Stop Time Status Last Admin Dose Admin Acetaminophen (Tylenol) 500 mg Q4H PRN ORAL For Pain 12/02/20 08:45 01/01/21 08:44 Acetaminophen (Tylenol) 500 mg Q4H PRN ORAL Temp >100.5 12/02/20 08:45 01/01/21 08:44 Albuterol/ Ipratropium (Combivent Respimat) 1 puff Q6HRT INH 12/01/20 19:00 12/31/20 18:59 12/08/20 06:33 Ceftriaxone Sodium 1 gm/ Dextrose 55 ml @ 110 mls/hr Q24H IVPB 12/07/20 12:00 12/14/20 11:59 12/08/20 11:07 Enoxaparin Sodium (Lovenox) 40 mg DAILY SUBQ 12/02/20 09:00 03/02/21 08:59 12/08/20 08:54 Furosemide (Lasix) 40 mg DAILY IV 12/05/20 09:00 12/31/20 11:59 12/08/20 08:51 Gabapentin (Neurontin) 300 mg THREE TIMES A DAY ORAL 12/04/20 13:00 01/01/21 12:59 12/08/20 08:51 Methylprednisolone Sodium Succinate (Solu-MEDROL) 40 mg EVERY 12 HOURS IVP 12/06/20 21:00 03/01/21 11:59 12/08/20 08:51 Lucian Espinoza MD Dec 08, 2020 11:11
--- NOTE | 2020-12-08 11:13 | Pulmonology Progress Note ---
Subjective ROS Limited/Unobtainable: No Interval Events: None major reported per nursing Constitutional: Reports: no symptoms HEENT: Repors: no symptoms Respiratory: Reports: no symptoms Cardiovascular: Reports: no symptoms Gastrointestinal/Abdominal: Reports: no symptoms Allergies: Coded Allergies: CODEINE (Verified Allergy, Unknown, 12/01/20) Objective Last 24 Hour Vital Signs Date Time Temp Pulse Resp B/P (MAP) Pulse Ox O2 Delivery O2 Flow Rate FiO2 12/08/20 09:00 Room Air 12/08/20 08:00 108 12/08/20 08:00 97.9 109 20 144/81 (102) 99 12/08/20 04:00 101 12/08/20 04:00 97.7 92 18 150/88 (108) 97 12/08/20 00:00 98.8 108 18 130/82 (98) 97 12/08/20 00:00 92 12/07/20 21:00 Room Air 12/07/20 20:00 98.4 111 18 137/82 (100) 100 12/07/20 19:02 118 12/07/20 16:00 112 12/07/20 16:00 96.6 94 19 149/93 (111) 96 12/07/20 12:00 90 12/07/20 12:00 98.8 69 18 150/86 (107) 97 Intake and Output 12/07/20 12/08/20 19:00 07:00 Intake Total 450 ml 500 ml Output Total 700 ml Balance 450 ml -200 ml Intake Oral 450 ml 500 ml Output Urine Total 700 ml General Appearance: no acute distress HEENT: atraumatic Respiratory: decreased breath sounds Cardiovascular: tachycardia Abdomen: soft, non tender Laboratory Tests 12/08/20 06:48: White Blood Count 17.4H, Red Blood Count 3.68L, Hemoglobin 10.5L, Hematocrit 37.6L, Mean Corpuscular Volume 102H, Mean Corpuscular Hemoglobin 28.6, Mean Corpuscular Hemoglobin Concent 28.0L, Red Cell Distribution Width 22.3H, Platelet Count 207, Mean Platelet Volume 6.7, Neutrophils (%) (Auto) 81.8H, Lymphocytes (%) (Auto) 8.2L, Monocytes (%) (Auto) 8.2, Eosinophils (%) (Auto) 0.0, Basophils (%) (Auto) 1.8, Sodium Level 143, Potassium Level 5.0, Chloride Level 107, Carbon Dioxide Level 32, Anion Gap 4L, Blood Urea Nitrogen 36H, Creatinine 0.8, Estimat Glomerular Filtration Rate > 60, Glucose Level 247H, Calcium Level 8.3L, Phosphorus Level 3.4, Magnesium Level 2.3, Total Bilirubin 0.3, Aspartate Amino Transf (AST/SGOT) 22, Alanine Aminotransferase (ALT/SGPT) 42, Alkaline Phosphatase 96, C-Reactive Protein, Quantitative < 0.4, Total Protein 6.0L, Albumin 2.9L, Globulin 3.1, Albumin/Globulin Ratio 0.9L Current Medications Medications (Trade) Dose Ordered Sig/Sha Route PRN Reason Start Time Stop Time Status Last Admin Dose Admin Acetaminophen (Tylenol) 500 mg Q4H PRN ORAL For Pain 12/02/20 08:45 01/01/21 08:44 Acetaminophen (Tylenol) 500 mg Q4H PRN ORAL Temp >100.5 12/02/20 08:45 01/01/21 08:44 Albuterol/ Ipratropium (Combivent Respimat) 1 puff Q6HRT INH 12/01/20 19:00 12/31/20 18:59 12/08/20 06:33 Ceftriaxone Sodium 1 gm/ Dextrose 55 ml @ 110 mls/hr Q24H IVPB 12/07/20 12:00 12/14/20 11:59 12/08/20 11:07 Enoxaparin Sodium (Lovenox) 40 mg DAILY SUBQ 12/02/20 09:00 03/02/21 08:59 12/08/20 08:54 Furosemide (Lasix) 40 mg DAILY IV 12/05/20 09:00 12/31/20 11:59 12/08/20 08:51 Gabapentin (Neurontin) 300 mg THREE TIMES A DAY ORAL 12/04/20 13:00 01/01/21 12:59 12/08/20 08:51 Methylprednisolone Sodium Succinate (Solu-MEDROL) 40 mg EVERY 12 HOURS IVP 12/06/20 21:00 03/01/21 11:59 12/08/20 08:51 Assessment/Plan Assessment/Plan 1. Anemia -Per primary MD -On IV iron 2. Elevated inflammatory markers -We will add Lovenox for DVT prophylaxis - Duplex ultrasound of legs negative for DVT 3. CHF - Elevated BNP - Cardio following -2D echo EF 65% -Lasix decreased to 40 mg QD 4. Pulmonary congestion, likely 2/2 to CHF -Provide supplemental oxygen as needed 5. COVID-19 PCR negative -Off isolation 6. Hypoxic respiratory distress -Currently saturating at 95% on RA -We will continue DuoNeb -We will add Solu-Medrol -> taper steroid 7. Smoker - Smoking cessation education 8. Infiltrates - Dw ID - We will start him on Rocephin 9. Leukocytosis -WBC trending up without fever -We will taper Solu-Medrol from BID to QD -ID following The care for this patient was discussed with my supervising physician. Time spent for this case was approximately 31 minutes. Luis Torres Dec 08, 2020 11:13
[2020-12-08 12:00] VITALS: BP 129/73
--- NOTE | 2020-12-08 13:07 | Cardiac Electrophysiology PN ---
Assessment/Plan Assessment/Plan 1. Congestive heart failure with BNP of > 7000 in this patient with EF of 65%, likely due to diastolic dysfunction as well as pulmonary hypertension. On Lasix 40 mg IV daily.Change to 40 po daily as is getting azotemic 2. COPD and respiratory failure, on Solu-Medrol 40 iv q 6 as well as ceftriaxone. On 1 liter NC 3. Anemia, etiology is not clear at this time, but could be anemia of chronic disease. 4. Hypertension. On Lasix DW RN Subjective Subjective Ruled out for Covid. No CP or SOB. On RA. LE duplex was negative for DVT. EF 65%. Bilateral hand and feet numbness/pain better Objective Last 24 Hour Vital Signs Date Time Temp Pulse Resp B/P (MAP) Pulse Ox O2 Delivery O2 Flow Rate FiO2 12/08/20 12:00 99.1 100 18 129/73 (91) 97 12/08/20 12:00 97 12/08/20 09:00 Room Air 12/08/20 08:00 108 12/08/20 08:00 97.9 109 20 144/81 (102) 99 12/08/20 04:00 101 12/08/20 04:00 97.7 92 18 150/88 (108) 97 12/08/20 00:00 98.8 108 18 130/82 (98) 97 12/08/20 00:00 92 12/07/20 21:00 Room Air 12/07/20 20:00 98.4 111 18 137/82 (100) 100 12/07/20 19:02 118 12/07/20 16:00 112 12/07/20 16:00 96.6 94 19 149/93 (111) 96 Intake and Output 12/07/20 12/08/20 19:00 07:00 Intake Total 450 ml 500 ml Output Total 700 ml Balance 450 ml -200 ml Intake Oral 450 ml 500 ml Output Urine Total 700 ml Laboratory Tests Test 12/08/20 06:48 White Blood Count 17.4 K/UL (4.8-10.8) H Red Blood Count 3.68 M/UL (4.70-6.10) L Hemoglobin 10.5 G/DL (14.2-18.0) L Hematocrit 37.6 % (42.0-52.0) L Mean Corpuscular Volume 102 FL (80-99) H Mean Corpuscular Hemoglobin 28.6 PG (27.0-31.0) Mean Corpuscular Hemoglobin Concent 28.0 G/DL (32.0-36.0) L Red Cell Distribution Width 22.3 % (11.6-14.8) H Platelet Count 207 K/UL (150-450) Mean Platelet Volume 6.7 FL (6.5-10.1) Neutrophils (%) (Auto) 81.8 % (45.0-75.0) H Lymphocytes (%) (Auto) 8.2 % (20.0-45.0) L Monocytes (%) (Auto) 8.2 % (1.0-10.0) Eosinophils (%) (Auto) 0.0 % (0.0-3.0) Basophils (%) (Auto) 1.8 % (0.0-2.0) Sodium Level 143 MMOL/L (136-145) Potassium Level 5.0 MMOL/L (3.5-5.1) Chloride Level 107 MMOL/L (98-107) Carbon Dioxide Level 32 MMOL/L (21-32) Anion Gap 4 mmol/L (5-15) L Blood Urea Nitrogen 36 mg/dL (7-18) H Creatinine 0.8 MG/DL (0.55-1.30) Estimat Glomerular Filtration Rate > 60 mL/min (>60) Glucose Level 247 MG/DL (74-106) H Calcium Level 8.3 MG/DL (8.5-10.1) L Phosphorus Level 3.4 MG/DL (2.5-4.9) Magnesium Level 2.3 MG/DL (1.8-2.4) Total Bilirubin 0.3 MG/DL (0.2-1.0) Aspartate Amino Transf (AST/SGOT) 22 U/L (15-37) Alanine Aminotransferase (ALT/SGPT) 42 U/L (12-78) Alkaline Phosphatase 96 U/L (46-116) C-Reactive Protein, Quantitative < 0.4 mg/dL (0.00-0.90) Total Protein 6.0 G/DL (6.4-8.2) L Albumin 2.9 G/DL (3.4-5.0) L Globulin 3.1 g/dL Albumin/Globulin Ratio 0.9 (1.0-2.7) L Objective HEAD AND NECK: No JVD. LUNGS: Clear. CARDIOVASCULAR: Regular S1 and S2 with no gallop or murmur. ABDOMEN: Soft. EXTREMITIES: No pitting edema. Christian Mendoza MD Dec 08, 2020 13:07
[2020-12-08 16:00] VITALS: BP 140/85
[2020-12-08] MEDS ORDERED: Tubing IV Secondary IV ONE ×2 (18:13→18:17)
[2020-12-08] MEDS ORDERED: NS 275ml ONE (18:13)
[2020-12-08 20:00] VITALS: BP 129/81
--- NOTE | 2020-12-08 21:27 | General Progress Note ---
Subjective ROS Limited/Unobtainable: Yes Allergies: Coded Allergies: CODEINE (Verified Allergy, Unknown, 12/01/20) Objective Last 24 Hour Vital Signs Date Time Temp Pulse Resp B/P (MAP) Pulse Ox O2 Delivery O2 Flow Rate FiO2 12/08/20 16:00 114 12/08/20 16:00 97.1 101 18 140/85 (103) 96 12/08/20 12:00 99.1 100 18 129/73 (91) 97 12/08/20 12:00 97 12/08/20 09:00 Room Air 12/08/20 08:00 108 12/08/20 08:00 97.9 109 20 144/81 (102) 99 12/08/20 04:00 101 12/08/20 04:00 97.7 92 18 150/88 (108) 97 12/08/20 00:00 98.8 108 18 130/82 (98) 97 12/08/20 00:00 92 Intake and Output 12/07/20 12/08/20 19:00 07:00 Intake Total 450 ml 500 ml Output Total 700 ml Balance 450 ml -200 ml Intake Oral 450 ml 500 ml Output Urine Total 700 ml Laboratory Tests 12/08/20 06:48: White Blood Count 17.4H, Red Blood Count 3.68L, Hemoglobin 10.5L, Hematocrit 37.6L, Mean Corpuscular Volume 102H, Mean Corpuscular Hemoglobin 28.6, Mean Corpuscular Hemoglobin Concent 28.0L, Red Cell Distribution Width 22.3H, Platelet Count 207, Mean Platelet Volume 6.7, Neutrophils (%) (Auto) 81.8H, Lymphocytes (%) (Auto) 8.2L, Monocytes (%) (Auto) 8.2, Eosinophils (%) (Auto) 0.0, Basophils (%) (Auto) 1.8, Sodium Level 143, Potassium Level 5.0, Chloride Level 107, Carbon Dioxide Level 32, Anion Gap 4L, Blood Urea Nitrogen 36H, Creatinine 0.8, Estimat Glomerular Filtration Rate > 60, Glucose Level 247H, Calcium Level 8.3L, Phosphorus Level 3.4, Magnesium Level 2.3, Total Bilirubin 0.3, Aspartate Amino Transf (AST/SGOT) 22, Alanine Aminotransferase (ALT/SGPT) 42, Alkaline Phosphatase 96, C-Reactive Protein, Quantitative < 0.4, Total Protein 6.0L, Albumin 2.9L, Globulin 3.1, Albumin/Globulin Ratio 0.9L Height (Feet): 5 Height (Inches): 7.00 Weight (Pounds): 147 Assessment/Plan Problem List: (1) HCAP (healthcare-associated pneumonia) ICD Codes: J18.9 - Pneumonia, unspecified organism SNOMED: 973402971, 319930306 (2) Anemia ICD Codes: D64.9 - Anemia, unspecified SNOMED: 151049917, 425037780 Qualifiers: Qualified Codes: D64.9 - Anemia, unspecified (3) Chronic pain ICD Codes: G89.29 - Other chronic pain SNOMED: 94023341, 639876060 Qualifiers: Qualified Codes: G89.4 - Chronic pain syndrome (4) CHF exacerbation ICD Codes: I50.9 - Heart failure, unspecified SNOMED: 560754774, [id number] Qualifiers: Qualified Codes: I50.9 - Heart failure, unspecified (5) Acute respiratory failure with hypoxia ICD Codes: J96.01 - Acute respiratory failure with hypoxia SNOMED: 28005115, 903707781 Status: progressing Assessment/Plan: afebrile chf exacerbation copd leukocytosis due to steroid? pna resp La Hdez MD Dec 08, 2020 21:27
[2020-12-09] VITALS: BP 128/88
[2020-12-09 04:00] VITALS: BP 137/85
[2020-12-09 08:00] VITALS: BP 135/86
--- NOTE | 2020-12-09 08:38 | General Progress Note ---
Subjective Date patient seen: Dec 09, 2020 Time patient seen: 07:30 - am Allergies: Coded Allergies: CODEINE (Verified Allergy, Unknown, 12/01/20) Subjective HISTORY OF PRESENT ILLNESS: The patient is a 60-year-old male who is being seen on the telemetry floor of [facility]. Patient in bed and showing no signs of pain or distress. No new complaints at this time. REVIEW OF SYSTEMS: Denies rash, fever, chills, sweating, dizziness, drowsiness, blurred vision, sore throat, or change in hearing or weight. No nausea, vomiting, diarrhea, or blood in the stool or urine. No dysuria. Objective Last 24 Hour Vital Signs Date Time Temp Pulse Resp B/P (MAP) Pulse Ox O2 Delivery O2 Flow Rate FiO2 12/09/20 04:00 99.2 108 20 137/85 (102) 96 12/09/20 04:00 114 12/09/20 00:00 120 12/09/20 00:00 99.0 111 20 128/88 (101) 94 12/08/20 21:00 Room Air 12/08/20 20:00 99.6 109 20 129/81 (97) 96 12/08/20 20:00 114 12/08/20 16:00 114 12/08/20 16:00 97.1 101 18 140/85 (103) 96 12/08/20 12:00 99.1 100 18 129/73 (91) 97 12/08/20 12:00 97 12/08/20 09:00 Room Air Intake and Output 12/08/20 12/09/20 19:00 07:00 Intake Total 720 ml 16 ml Output Total 350 ml 300 ml Balance 370 ml -284 ml Intake Oral 720 ml 16 ml Output Urine Total 350 ml 300 ml # Voids 2 Height (Feet): 5 Height (Inches): 7.00 Weight (Pounds): 147 Objective PHYSICAL EXAMINATION: GENERAL: Alert, awake, and oriented. LUNGS: Decreased breath sounds bilaterally. HEART: S1 and S2 regular. ABDOMEN: Soft and nontender. EXTREMITIES: No cyanosis. No clubbing. NEURO: No changes. Assessment/Plan Status: progressing Assessment/Plan: (1) Degenerative joint disease (2) Multiple joint pain Patient to be continued on Tylenol and Neurontin D/w Dr. Camacho and he concurred. Scott Yates Dec 09, 2020 08:38
[2020-12-09] MEDS ORDERED: Furosemide 40mg tab ORAL SCH (09:00)
[2020-12-09] MEDS ORDERED: Solu-MEDROL 40mg Inj IVP SCH (09:00)
[2020-12-09] MEDS: Enoxaparin 40mg Inj SUBQ SCH (09:33)
--- NOTE | 2020-12-09 09:59 | Pulmonology Progress Note ---
Subjective ROS Limited/Unobtainable: Yes Interval Events: None major reported per nursing Constitutional: Reports: no symptoms HEENT: Repors: no symptoms Respiratory: Reports: no symptoms Cardiovascular: Reports: no symptoms Gastrointestinal/Abdominal: Reports: no symptoms Allergies: Coded Allergies: CODEINE (Verified Allergy, Unknown, 12/01/20) Objective Last 24 Hour Vital Signs Date Time Temp Pulse Resp B/P (MAP) Pulse Ox O2 Delivery O2 Flow Rate FiO2 12/09/20 08:00 97.9 103 20 135/86 (102) 96 12/09/20 04:00 99.2 108 20 137/85 (102) 96 12/09/20 04:00 114 12/09/20 00:00 120 12/09/20 00:00 99.0 111 20 128/88 (101) 94 12/08/20 21:00 Room Air 12/08/20 20:00 99.6 109 20 129/81 (97) 96 12/08/20 20:00 114 12/08/20 16:00 114 12/08/20 16:00 97.1 101 18 140/85 (103) 96 12/08/20 12:00 99.1 100 18 129/73 (91) 97 12/08/20 12:00 97 Intake and Output 12/08/20 12/09/20 19:00 07:00 Intake Total 720 ml 16 ml Output Total 350 ml 300 ml Balance 370 ml -284 ml Intake Oral 720 ml 16 ml Output Urine Total 350 ml 300 ml # Voids 2 General Appearance: no acute distress HEENT: atraumatic Respiratory: decreased breath sounds Cardiovascular: tachycardia Abdomen: soft, non tender Current Medications Medications (Trade) Dose Ordered Sig/Sha Route PRN Reason Start Time Stop Time Status Last Admin Dose Admin Acetaminophen (Tylenol) 500 mg Q4H PRN ORAL For Pain 12/02/20 08:45 01/01/21 08:44 Acetaminophen (Tylenol) 500 mg Q4H PRN ORAL Temp >100.5 12/02/20 08:45 01/01/21 08:44 Albuterol/ Ipratropium (Combivent Respimat) 1 puff Q6HRT INH 12/01/20 19:00 12/31/20 18:59 12/08/20 18:07 Enoxaparin Sodium (Lovenox) 40 mg DAILY SUBQ 12/02/20 09:00 03/02/21 08:59 12/09/20 09:33 Furosemide (Lasix) 40 mg DAILY ORAL 12/09/20 09:00 01/08/21 08:59 12/09/20 09:31 Gabapentin (Neurontin) 300 mg THREE TIMES A DAY ORAL 12/04/20 13:00 01/01/21 12:59 12/09/20 09:31 Methylprednisolone Sodium Succinate (Solu-MEDROL) 40 mg DAILY IVP 12/09/20 09:00 03/09/21 08:59 12/09/20 09:31 Assessment/Plan Assessment/Plan 1. Anemia -Per primary MD -On IV iron 2. Elevated inflammatory markers -We will add Lovenox for DVT prophylaxis - Duplex ultrasound of legs negative for DVT 3. CHF - Elevated BNP - Cardio following -2D echo EF 65% -Lasix decreased to 40 mg QD per cardio 4. Pulmonary congestion, likely 2/2 to CHF -Provide supplemental oxygen as needed - on Lasix 5. COVID-19 PCR negative (12/01) -Off isolation 6. Hypoxic respiratory distress -Currently saturating at 95% on RA -We will continue DuoNeb -We will add Solu-Medrol -> taper steroid; will switch to prednisone 5 mg PO QD x 2 days 7. Smoker - Smoking cessation education 8. Infiltrates - Dw ID - s/p Rocephin (12/07-12/08) 9. Leukocytosis -WBC trending up without fever -We will taper Solu-Medrol from BID to QD -> now on prednisone 5 mg PO QD x 2 days -ID following The care for this patient was discussed with my supervising physician. Time spent for this case was approximately 31 minutes. Luis Torres Dec 09, 2020 09:59
--- NOTE | 2020-12-09 11:33 | Cardiac Electrophysiology PN ---
Assessment/Plan Assessment/Plan 1. Congestive heart failure with BNP of > 7000 in this patient with EF of 65%, likely due to diastolic dysfunction as well as pulmonary hypertension. On Lasix 40 po daily 2. COPD and respiratory failure, on Solu-Medrol 40 iv q 6 as well as ceftriaxone. On RA 3. Anemia, etiology is not clear at this time, but could be anemia of chronic disease. 4. Hypertension. On Lasix DW RN Subjective Subjective Ruled out for Covid. No CP or SOB. On RA. LE duplex was negative for DVT. EF 65%. WBC increasing to 17K but on steroids Objective Last 24 Hour Vital Signs Date Time Temp Pulse Resp B/P (MAP) Pulse Ox O2 Delivery O2 Flow Rate FiO2 12/09/20 08:00 97.9 103 20 135/86 (102) 96 12/09/20 07:42 116 12/09/20 04:00 99.2 108 20 137/85 (102) 96 12/09/20 04:00 114 12/09/20 00:00 120 12/09/20 00:00 99.0 111 20 128/88 (101) 94 12/08/20 21:00 Room Air 12/08/20 20:00 99.6 109 20 129/81 (97) 96 12/08/20 20:00 114 12/08/20 16:00 114 12/08/20 16:00 97.1 101 18 140/85 (103) 96 12/08/20 12:00 99.1 100 18 129/73 (91) 97 12/08/20 12:00 97 Intake and Output 12/08/20 12/09/20 19:00 07:00 Intake Total 720 ml 16 ml Output Total 350 ml 300 ml Balance 370 ml -284 ml Intake Oral 720 ml 16 ml Output Urine Total 350 ml 300 ml # Voids 2 Objective HEAD AND NECK: No JVD. LUNGS: Clear. CARDIOVASCULAR: Regular S1 and S2 with no gallop or murmur. ABDOMEN: Soft. EXTREMITIES: No pitting edema. Christian Mendoza MD Dec 09, 2020 11:33
--- NOTE | 2020-12-09 11:56 | Infectious Diseases Prog Note ---
Assessment/Plan Assessment/Plan A: 1. Pneumonia. COVID19 test negative on 11/26 & 12/01 2. Congestive heart failure, mild diastolic 3. Hypertension. 4. COPD. 5. Anemia 6. Leukocytosis maybe steroid related PLAN: 1. Observe off antibiotic 2. Taper steroids Subjective ROS Limited/Unobtainable: Yes Allergies: Coded Allergies: CODEINE (Verified Allergy, Unknown, 12/01/20) Objective Last 24 Hour Vital Signs Date Time Temp Pulse Resp B/P (MAP) Pulse Ox O2 Delivery O2 Flow Rate FiO2 12/09/20 08:00 97.9 103 20 135/86 (102) 96 12/09/20 07:42 116 12/09/20 04:00 99.2 108 20 137/85 (102) 96 12/09/20 04:00 114 12/09/20 00:00 120 12/09/20 00:00 99.0 111 20 128/88 (101) 94 12/08/20 21:00 Room Air 12/08/20 20:00 99.6 109 20 129/81 (97) 96 12/08/20 20:00 114 12/08/20 16:00 114 12/08/20 16:00 97.1 101 18 140/85 (103) 96 12/08/20 12:00 99.1 100 18 129/73 (91) 97 12/08/20 12:00 97 Height (Feet): 5 Height (Inches): 7.00 Weight (Pounds): 147 HEENT: mucous membranes moist Respiratory/Chest: lungs clear Cardiovascular: tachycardia Abdomen: soft, non tender Extremities: no edema Neurologic/Psychiatric: other - sleeping Current Medications Medications (Trade) Dose Ordered Sig/Sha Route PRN Reason Start Time Stop Time Status Last Admin Dose Admin Acetaminophen (Tylenol) 500 mg Q4H PRN ORAL For Pain 12/02/20 08:45 01/01/21 08:44 Acetaminophen (Tylenol) 500 mg Q4H PRN ORAL Temp >100.5 12/02/20 08:45 01/01/21 08:44 Albuterol/ Ipratropium (Combivent Respimat) 1 puff Q6HRT INH 12/01/20 19:00 12/31/20 18:59 12/08/20 18:07 Enoxaparin Sodium (Lovenox) 40 mg DAILY SUBQ 2/16/21 09:00 03/02/21 08:59 12/09/20 09:33 Furosemide (Lasix) 40 mg DAILY ORAL 12/09/20 09:00 01/08/21 08:59 12/09/20 09:31 Gabapentin (Neurontin) 300 mg THREE TIMES A DAY ORAL 12/04/20 13:00 01/01/21 12:59 12/09/20 09:31 Prednisone (predniSONE) 5 mg DAILY ORAL 12/10/20 09:00 12/11/20 10:00 Lucian Espinoza MD Dec 09, 2020 11:56
[2020-12-09 11:58] VITALS: BP 122/72
--- NOTE | 2020-12-09 12:09 | Nephrology Progress Note ---
Assessment/Plan Problem List: (1) CHF exacerbation (2) Anemia (3) HCAP (healthcare-associated pneumonia) (4) Acute respiratory failure with hypoxia Assessment Iron deficiency anemia Respiratory failure Exacerbation of CHF Chronic pain Hypoalbuminemia Plan December 09: No labs drawn today. Most recent renal parameters stable. Medication list reviewed. Continue per consultants. Will check lab tomorrow. December 08: Labs reviewed. White blood cells rising. Renal parameters stable. Continue per consultants. December 07: No labs drawn today. Clinically stable. Continue to monitor renal parameters. December 06: Labs reviewed. Renal parameters are stable. Continue per consultants. December 05: No labs drawn today. Medication list reviewed. Patient clinically stable. Will check lab tomorrow. December 04: CHEM panel reviewed. Medication list reviewed. Remains stable. Continue per consultants December 03: Stable from renal standpoint of view. No labs drawn today. We will continue to monitor electrolytes and renal parameters. IV iron Stool OB Demise cardiac and pulmonary status Per orders Subjective ROS Limited/Unobtainable: No Constitutional: Reports: malaise, weakness Objective Objective Last 24 Hour Vital Signs Date Time Temp Pulse Resp B/P (MAP) Pulse Ox O2 Delivery O2 Flow Rate FiO2 12/09/20 11:58 98.0 100 20 122/72 (89) 95 12/09/20 08:00 97.9 103 20 135/86 (102) 96 12/09/20 07:42 116 12/09/20 04:00 99.2 108 20 137/85 (102) 96 12/09/20 04:00 114 12/09/20 00:00 120 12/09/20 00:00 99.0 111 20 128/88 (101) 94 12/08/20 21:00 Room Air 12/08/20 20:00 99.6 109 20 129/81 (97) 96 12/08/20 20:00 114 12/08/20 16:00 114 12/08/20 16:00 97.1 101 18 140/85 (103) 96 Intake and Output 12/08/20 12/09/20 19:00 07:00 Intake Total 720 ml 16 ml Output Total 350 ml 300 ml Balance 370 ml -284 ml Intake Oral 720 ml 16 ml Output Urine Total 350 ml 300 ml # Voids 2 Current Medications Medications (Trade) Dose Ordered Sig/Sha Route PRN Reason Start Time Stop Time Status Last Admin Dose Admin Acetaminophen (Tylenol) 500 mg Q4H PRN ORAL For Pain 12/02/20 08:45 01/01/21 08:44 Acetaminophen (Tylenol) 500 mg Q4H PRN ORAL Temp >100.5 12/02/20 08:45 01/01/21 08:44 Albuterol/ Ipratropium (Combivent Respimat) 1 puff Q6HRT INH 12/01/20 19:00 12/31/20 18:59 12/08/20 18:07 Enoxaparin Sodium (Lovenox) 40 mg DAILY SUBQ 12/02/20 09:00 03/02/21 08:59 12/09/20 09:33 Furosemide (Lasix) 40 mg DAILY ORAL 12/09/20 09:00 01/08/21 08:59 12/09/20 09:31 Gabapentin (Neurontin) 300 mg THREE TIMES A DAY ORAL 12/04/20 13:00 01/01/21 12:59 12/09/20 09:31 Prednisone (predniSONE) 5 mg DAILY ORAL 12/10/20 09:00 12/11/20 10:00 No labs drawn today Height (Feet): 5 Height (Inches): 7.00 Weight (Pounds): 147 General Appearance: no apparent distress Cardiovascular: tachycardia Respiratory/Chest: decreased breath sounds Abdomen: distended Hong Wall MD Dec 09, 2020 12:09
[2020-12-09 16:00] VITALS: BP 133/68
--- NOTE | 2020-12-10 14:43 | Discharge Summary ---
Discharge Summary Discharge Summary _ Date of admission: 12/01/2020 Date of discharge: 12/09/[address] Pal History of Present Illness and Brief Hospital Course Mr. Bishop is a 60-year-old male with past medical history of hypertension, pneumonia, and CHF, who was sent to ED from SNF for evaluation of shortness of breath. Patient was hypoxic in the 80s on room air and was placed on supplemental oxygen. Chest x-ray was notable for cardiomegaly with vascular congestion. Patient was given breathing treatment, steroid, Lasix, and pain medication and was admitted to the hospital for further management. Given the elevated BNP, patient was evaluated with 2D echocardiogram which revealed ejection fraction of 65%. Lasix was continued. Pulmonary congestion was likely secondary to CHF. Given hypoxic respiratory distress, patient was continued on DuoNeb and Solu-Medrol. Given history of smoking, patient was educated on smoking cessation. Given the chest x-ray finding of infiltrates, patient was started on Rocephin. Patient tested negative for COVID-19. Blood cultures and sputum culture were negative. Given the elevated inflammatory markers, patient was started on Lovenox for DVT prophylaxis. Venous duplex ultrasound of legs was negative for DVT. Patient was found to be anemic and IV iron was started. Given the history of degenerative joint disease, patient was continued on Tylenol and Neurontin for pain. Throughout his hospitalization, patient's oxygen saturation remained stable on room air. Patient was treated for CHF. Patient was medically stable for discharge and was discharged back to his facility on 12/09/2020. Consultants: Nephrology Dr. Johnson Pain management SHANTELLE Pfeiffer Cardiology Dr. Mendoza Nephrology Dr. Johnson Infectious disease Dr. Davidson Pulmonology Dr. Carlton Discharge Condition Improved and stable Final diagnoses Degenerative joint disease Healthcare associated pneumonia Anemia Chronic pain CHF exacerbation Acute respiratory failure with hypoxia Pulmonary congestion Smoker Leukocytosis, likely steroid-induced COPD Hypertension I have been assigned to dictate discharge summary for this account. Luis Torres Dec 10, 2020 14:42
== END 2020-12-09 17:44 | DRG 193 ==
LOC: EDBD 05:03 → EMR 05:20 → 2E 05:51 → EDBEDREQ 06:13
DX: J18.9 Pneumonia, unspecified organism (principal); J96.01 Acute respiratory failure with hypoxia; I50.33 Acute on chronic diastolic (congestive) heart failure; I11.0 Hypertensive heart disease with heart failure; Z88.6 Allergy status to analgesic agent; F10.11 Alcohol abuse, in remission; J44.9 Chronic obstructive pulmonary disease, unspecified; Y95 Nosocomial condition; G89.29 Other chronic pain; D72.829 Elevated white blood cell count, unspecified; T38.0X5A Adverse effect of glucocorticoids and synthetic analogues, initial encounter; G62.9 Polyneuropathy, unspecified; F17.200 Nicotine dependence, unspecified, uncomplicated; E88.09 Other disorders of plasma-protein metabolism, not elsewhere classified; K21.9 Gastro-esophageal reflux disease without esophagitis; I27.20 Pulmonary hypertension, unspecified; D50.9 Iron deficiency anemia, unspecified
CPT/HCPCS: 36415; 71045; 80053; 80061; 80307; 81001; 82140; 82306; 82607; 82728; 82746; 82803; 82977; 83036; 83540; 83550; 83605; 83735; 83880; 84100; 84439; 84443; 84484; 84550; 85007; 85025; 85379; 86140; 87040; 87070; 87081; 87205; 93306; 93970; 94640; 96374; 96375; 99285